=== PATIENT | male | born 1935 | race Caucasian/White ===

== ENCOUNTER → 2016-12-15 | Day surgery (SDC) | payer BC ==
[2016-12-02 09:21] VITALS: Ht 183.5 cm; Wt 113.6 kg
[~2016-12-15] VITALS: Ht 183.5 cm; Wt 113.6 kg
[~2016-12-15] MED LIST: AcetaZOLAMIDE 250 MG TAB PO SCH; BETAXOLOL HCL 0.25% OP SUSP PER DROP CHARGE OPR SCH; BIOFTAB30 PO; CYCLOPENTOLATE HCL 1% OP SOLN PER DROP CHARGE OPR SCH; HYDR25TA4 PO; LACTATED RINGER'S 1000ML 500 ML IV SCH; LIDOCAINE 4% OP SOLN DROP CHARGE OPR SCH; MOXIFLOXACIN OPH SOLN PER DROP CHARGE OPR SCH; MULTCAP33 PO; PANT1TAB48 PO; PHENYLEPHRINE HCL 2.5% OP SOLN PER DROP CHARGE OPR SCH; PROPARACAINE 0.5% OP SOLN PER DROP CHARGE OPR SCH; TROPICAMIDE 1% OP SOLN PER DROP CHARGE OPR SCH
== END | disposition home or self-care (01) ==
LOC: EDSTATUS 08:00 → C.PAT 13:25
PROVIDERS: ATTEND Specialist
DX: H26.9 Unspecified cataract (principal)

== ENCOUNTER → 2016-12-20 | Outpatient (CLI) | payer BC ==
[~2016-12-20] MED LIST changes: -AcetaZOLAMIDE 250 MG TAB PO SCH; -BETAXOLOL HCL 0.25% OP SUSP PER DROP CHARGE OPR SCH; -CYCLOPENTOLATE HCL 1% OP SOLN PER DROP CHARGE OPR SCH; -LACTATED RINGER'S 1000ML 500 ML IV SCH; -LIDOCAINE 4% OP SOLN DROP CHARGE OPR SCH; -MOXIFLOXACIN OPH SOLN PER DROP CHARGE OPR SCH; -PHENYLEPHRINE HCL 2.5% OP SOLN PER DROP CHARGE OPR SCH; -PROPARACAINE 0.5% OP SOLN PER DROP CHARGE OPR SCH; -TROPICAMIDE 1% OP SOLN PER DROP CHARGE OPR SCH
[2016-12-20 10:15] LABS: BASO % 0.7 %; BASO ABS # 0.04 K/uL (0-0.2); COMPLETE YES; EOS % 2.6 %; HEMATOCRIT 48.2 % (42-52); IG% 0.2 %; LYMPH % 43.3 %; MEAN CELL VOLUME 89.4 fL (80-100); MEAN CORPUSCULAR HEMOGLOBIN 30.8 pg (25-34); MEAN CORPUSCULAR HGB CONC 34.4 g/dl (32-36); MEAN PLATELET VOLUME 8.9 fL (7.4-10.4); MONO % 8.5 %; NEUT % 44.7 %; PLATELET COUNT 181 K/uL (130-400); RED BLOOD COUNT 5.39 M/uL (4.7-6.1); WHITE BLOOD COUNT 5.77 K/uL (4.8-10.8)
[2016-12-20 10:26] LABS: ESTIMATED AVERAGE GLUCOSE 120 mg/dl; HA1C FLAG Normal (Normal)
[2016-12-20 10:46] LABS: BLOOD UREA NITROGEN 22 mg/dl (7-18); BUN/CREATININE RATIO 18.3 (10-20); CARBON DIOXIDE 32 mmol/L (21-32); CHLORIDE 103 mmol/L (98-107); CHOLESTEROL 155 mg/dl (0-200); GLUCOSE 109 mg/dl (70-99); POTASSIUM 3.8 mmol/L (3.5-5.1); SODIUM 141 mmol/L (136-145); TRIGLYCERIDES 165 mg/dl (0-150); VERY LOW DENSITY LIPOPROT CALC 33 mg/dl
[2016-12-20 10:49] LABS: CALCIUM 8.9 mg/dl (8.5-10.1)
[2016-12-20 10:57] LABS: HDL CHOLESTEROL 39 mg/dl; LDL CHOLESTEROL CALCULATED 83 mg/dl; URIC ACID 6.4 mg/dl (2.6-7.2)
--- NOTE | 2016-12-24 11:42 | CODING QUERY MEDICAL NECESSITY ---
SUPPORTING DIAGNOSIS NEEDED A supporting diagnosis is required for the test/procedure performed on this patient in order for us to be reimbursed by the patient's insurance. Please provide a supporting diagnosis for the following test/procedure listed below next to the test name along with your signature. *If there is no additional diagnosis for this patient that would support the following test/procedure please document that below next to the test/procedure. Test(s)/Procedure(s) that require a supporting diagnosis: * HEMOGLOBIN A1C DIAGNOSIS: Provider Signature: Date: Thank you Rasheeda Oconnell [employer] Once completed, please kindly fax back to [phone] For questions please call [phone]
== END | disposition home or self-care (01) ==
LOC: C.LAB1850 08:58
PROVIDERS: ATTEND Internal Medicine
DX: K21.9 Gastro-esophageal reflux disease without esophagitis (principal); E74.39 Other disorders of intestinal carbohydrate absorption

== ENCOUNTER → 2017-05-13 | Outpatient (CLI) | payer BC ==
[~2017-05-13] VITALS: Ht 183.5 cm; Wt 139.0 kg
[2017-05-13 13:53] VITALS: BP 147/95; PULSE 86; Ht 183.5 cm; Wt 139.0 kg
== END | disposition home or self-care (01) ==
LOC: C.NEUR 12:58
PROVIDERS: ATTEND Internal Medicine Pulmonary Disease
DX: G47.33 Obstructive sleep apnea (adult) (pediatric) (principal); E66.9 Obesity, unspecified; I87.2 Venous insufficiency (chronic) (peripheral)

== ENCOUNTER → 2017-09-23 | Outpatient (CLI) | payer BC ==
[~2017-09-23] MED LIST changes: +PANT1TAB3 PO; -PANT1TAB48 PO
--- NOTE | 2017-09-23 08:58 | DIAGNOSTIC IMAGING REPORT ---
R KNEE 3 VIEWS HISTORY: 82 years-old Male B/L KNEE PAIN acute bilateral knee pain, most pronounced in the right COMPARISON: Radiographs 07/25/2013 TECHNIQUE: AP, sunrise, crosstable lateral and AP axial views of the bilateral knees FINDINGS: RIGHT: Tricompartmental osteoarthritis, severe within the medial compartment, moderate to severe within the patellofemoral compartment and moderate within the lateral compartment. No acute fracture or dislocation. No definite intra-articular loose body. Small joint effusion. Peripheral vascular disease. LEFT: Tricompartmental osteoarthritis appears moderate throughout. Small to moderate joint effusion. Peripheral vascular disease. No acute fracture or dislocation. No definite intra-articular loose body. IMPRESSION: 1. No acute fracture or dislocation. 2. Tricompartmental osteoarthritis is noted bilaterally, right greater than left. 3. Peripheral vascular disease. The above report was generated using voice recognition software. It may contain grammatical, syntax or spelling errors. Electronically signed by: Mohamud Akins M.D. 09/23/2017 8:56 AM Dictated Date/Time: 09/23/2017 8:53 AM
== END | disposition home or self-care (01) ==
LOC: C.RDSM 12:57
PROVIDERS: ATTEND Physician Assistant
DX: M17.0 Bilateral primary osteoarthritis of knee (principal); I73.9 Peripheral vascular disease, unspecified

== ENCOUNTER → 2017-11-15 | Outpatient (CLI) | payer BC ==
[~2017-11-15] VITALS: Ht 183.5 cm; Wt 142.7 kg
[2017-11-15 14:14] VITALS: BP 143/67; PULSE 82; Ht 183.5 cm; Wt 142.7 kg
== END | disposition home or self-care (01) ==
LOC: C.NEUR 12:53
PROVIDERS: ATTEND Internal Medicine Pulmonary Disease
DX: G47.33 Obstructive sleep apnea (adult) (pediatric) (principal); E66.9 Obesity, unspecified; I87.2 Venous insufficiency (chronic) (peripheral); I10 Essential (primary) hypertension; K21.9 Gastro-esophageal reflux disease without esophagitis

== ENCOUNTER → 2018-02-24 | Outpatient (CLI) | payer BC ==
[2018-02-24 11:39] LABS: HEMOGLOBIN A1C 5.9 % (4.5-5.6)
== END | disposition home or self-care (01) ==
LOC: C.LAB1850 09:49
PROVIDERS: ATTEND Internal Medicine
DX: R73.9 Hyperglycemia, unspecified (principal)

== ENCOUNTER 2021-10-27 09:58 | Observation (INO) ==
[2021-10-27] MEDS ORDERED: SODIUM CHLORIDE 0.9% 500 ML IV SCH (11:15)
--- NOTE | 2021-10-27 11:31 | Emergency Department Note ---
Impression & Plan Rectal mass, Liver masses, Alkaline phosphatase elevation, Weakness, Unintentional weight loss ED Provider Note Provider: Romero Campbell MD DATE OF SERVICE: 10/27/2021 CHIEF COMPLAINT: No appetite, weight loss, rectal pain HISTORY OF PRESENT ILLNESS: Patient is a 86-year-old gentleman history of hypertension, hyperglycemia, TANIA, and GERD presenting here today referred by his primary doctor's office. Evidently over the last several weeks his had no appetite and over the last several months has been losing weight. Reports a bit of rectal discomfort. Denies any significant rectal bleeding and denies any nausea or vomiting. States he just does not feel hungry. Is hydrating okay. Denies fever chills or chest pain or shortness of breath. Some generalized weakness reported. Stopped going to the gym was 2 weeks ago as well. Daughter is concerned about generalized decline. Was scheduled for outpatient colonoscopy but are planning to postpone this given his weakness and fatigue. Patient denies any significant difficulty speaking or focal numbness or weakness. Has been following with outpatient PCP and seen last week. Had some outpatient blood work. Patient states it hurts when he sits on his bottom but has had issues with some hemorrhoids in the past. REVIEW OF SYSTEMS: A total of 10 review of systems was obtained and negative except as stated above in the HPI. PAST MEDICAL HISTORY: As noted above MEDICATIONS: Home medications reviewed SOCIAL HISTORY: Lives at home with PHYSICAL EXAM: GENERAL: alert and oriented in no acute distress on stretcher Head: normocephalic and atraumatic EYES: No injection, discharge or icterus. NECK: Trachea midline ENT: Mucous membranes pink and moist. LUNGS: Airway patent. No retractions. Breath sounds clear with good air entry bilaterally. HEART: Regular rate and rhythm. No chest wall tenderness ABDOMEN: Soft and non-tender, without guarding or rebound. No pulsatile mass appreciated. Rectal: With nurse Trinidad at bedside no external hemorrhoids visualized. Some brownish stool in the rectal vault that is trace Hemoccult positive. SKIN: Acyanotic, warm, dry, without rashes EXTREMITIES: Without swelling, tenderness or deformity NEUROLOGICAL: No focal deficits. No aphasia. No facial droop or slurred speech. Ambulatory. EK bpm normal sinus rhythm with a complete right bundle branch block. No PVC or PAC noted. No acute ST segment elevation or depression with a QTC of 442 CONTINUOUS CARDIAC MONITORING: was ordered and showed a heart rate of 60s-80s bpm in normal sinus rhythm Patient's laboratory studies and imaging reviewed. Differential includes Infection, dehydration, metabolic abnormality, hypo/hyperglycemia, electrolyte disturbance, anemia, hypoxia, cardiac sources, intracerebral event, toxicologic, neurologic, as well as other pathologies. IMPRESSION/MEDICAL DECISION MAKING: Patient with generalized weakness lack of appetite and some rectal discomfort. No obvious evidence of hemorrhoid. No significant bleeding reported ultras Hemoccult positive on exam here today question if it is from the exam itself. Blood work here with minimal anemia no leukocytosis. Denies other URI symptoms and doubt this represents COVID. Borderline hyponatremia of 135. Alkaline phosphatase slightly high at 313 downtrending from last week in the 330s. EKG and troponin completed although low suspicion for cardiac etiology. Chest x-ray per radiology is reassuring. Outpatient PSA from last week normal. CT of the abdomen pelvis per radiology with concerning findings for rectal mass with po ssible liver metastasis. Discussed with patient and daughter at bedside concerned that this could represent an oncological process. Discussed the need for further testing to elucidate this. Discussed with him given the patient's fatigue and generalized weakness options of observation for further testing versus outpatient follow-up. In shared decision-making will contact the hospitalist for further observation here for expeditious testing follow-up of his new masses. This likely explains his unintentional weight loss and fatigue that is developed and again unfortunately does appear likely to be a cancer. DIAGNOSIS: Rectal mass, liver masses, elevated alkaline phosphatase, weight loss, rectal pain, weakness DISPOSITION: Hospitalist will evaluate Patient was agreeable with this plan. Past Med/Surg History Medical History Chronic gastroesophageal reflux disease Degenerative disc disease Periorbital hematoma of left eye age 11 with surgical removal. Severe obstructive sleep apnea CPAP Venous insufficiency bilateral ankle edema (reason for HCTZ) Surgical History History of cataract surgery left History of colonoscopy History of eye surgery S/P epidural steroid injection Family History Father Cancer Prostate cancer Mother Myocardial infarction Brother Prostate cancer Other Coronary heart disease No family history of adverse response to anesthesia Denies family history of Ovarian cancer Breast cancer Colorectal cancer Social History Smoking Status: Former smoker Tobacco Type: Cigarettes Second Hand Exposure: No; Hx Alcohol Use: No Hx Substance Use: No Preferred Language: Greenlandic Communication Ability: Effective Waste And Batting Waste Chopper Required: No Beliefs That Will Affect Care: None marital status: Current Living Situation: Spouse current occupational status: retired Feels Safe at Home: Yes Childhood Exposure to Second-Hand Smoke: Yes Dental Care, Regularly: Yes Physical Activity Frequency: Daily Seatbelt Use: always Sunscreen Use: Yes Assistive Devices: Glasses Allergies Allergies Allergy/AdvReac Type Severity Reaction Status Date / Time No Known Allergies Allergy Verified 10/27/21 11:59 Home Meds Home Medications Medication Instructions Recorded Confirmed glucosamine-chondroitin 250 mg-200 2 tab PO QAM tab 02/05/19 10/27/21 mg tablet vit C 250 mg-vit E 90 mg-zinc 40 2 cap PO QAM cap 02/05/19 10/27/21 mg-copper 1 [id number]-bprfzm-mrtepa capsule (PreserVision AREDS-2) melatonin 10 mg capsule 10 mg PO HS PRN 10/21/21 10/27/21 aspirin 81 mg tablet,delayed 81 mg PO Q2D 10/27/21 10/27/21 release cholecalciferol (vitamin D3) 25 25 mcg PO QAM 10/27/21 10/27/21 mcg (1,000 unit) tablet (Vitamin D3) cyanocobalamin (vitamin B-12) 250 250 mcg PO QAM 10/27/21 10/27/21 mcg tablet (Vitamin B-12) multivitamin 1 tab PO QAM 10/27/21 10/27/21 Previous Rx's Medication Instructions Recorded hydrochlorothiazide 25 mg tablet 25 mg PO QAM #90 tab 01/12/21 pantoprazole 40 mg tablet,delayed 40 mg PO QAM #90 tab 05/25/21 release sodium sul 1.479 gram-potas ch 24 tab PO .COMPLEX #24 tab 10/09/21 0.188 gram-magnes sul 0.225 gram tablet (Sutab) Results & Data (ED) Vital Signs Vital Signs - 24 hr 10/27/21 10:09 10/27/21 11:51 10/27/21 11:58 Temperature 36.4 C L Temperature Source Temporal Artery Scan Pulse Rate 88 Pulse Rate [Apical] 67 Respiratory Rate 16 18 Blood Pressure 107/72 Blood Pressure [Right Arm] 141/89 H Blood Pressure Mean 83 Blood Pressure Mean [Right Arm] 106 Blood Pressure Position [Right Arm] Semi-fowlers Pulse Oximetry 96 97 95 Oxygen Delivery Method Room Air Room Air Room Air Sepsis Recent Fever Within 48 Hours No Sepsis New/Unexplained Change in Mental Status No Sepsis Action Taken by Nursing No Action Required 10/27/21 13:00 Temperature 36.8 C Temperature Source Oral Pulse Rate Pulse Rate [Apical] 84 Respiratory Rate 18 Blood Pressure Blood Pressure [Right Arm] 123/77 Blood Pressure Mean Blood Pressure Mean [Right Arm] 92 Blood Pressure Position [Right Arm] Pulse Oximetry 97 Oxygen Delivery Method Sepsis Recent Fever Within 48 Hours Sepsis New/Unexplained Change in Mental Status Sepsis Action Taken by Nursing Laboratory Data Result diagrams: 10/27/21 10:35 10/27/21 10:35 Lab Results 10/27/21 10/27/21 10/27/21 Range/Units 10:35 10:35 10:35 WBC 8.03 (4.8-10.8) K/uL RBC 4.77 (4.7-6.1) M/uL Hgb 13.6 L (14.0-18.0) g/dL Hct 41.7 L (42-52) % MCV 87.4 (80-100) fL MCH 28.5 (25-34) pg MCHC 32.6 (32-36) g/dL RDW Std Deviation 47.2 H (36.4-46.3) fL RDW Coeff of Marisol 14.7 H (11.5-14.5) % Plt Count 297 (130-400) K/uL MPV 8.8 (7.4-10.4) fL Immature Gran % (Auto) 0.1 % Neut % (Auto) 58.3 % Lymph % (Auto) 27.0 % Gilchrist % (Auto) 10.7 % Eos % (Auto) 3.2 % Baso % (Auto) 0.7 % Neut # (Auto) 4.67 (1.4-6.5) K/uL Lymph # (Auto) 2.17 (1.2-3.4) K/uL Gilchrist # (Auto) 0.86 H (0.11-0.59) K/uL Eos # (Auto) 0.26 (0-0.5) K/uL Baso # (Auto) 0.06 (0-0.2) K/uL Immature Gran # (Auto) 0.01 (0.00-0.02) K/uL Sodium 135 L (136-145) mmol/L Potassium 3.9 (3.5-5.1) mmol/L Chloride 99 (98-107) mmol/L Carbon Dioxide 28 (21-32) mmol/L Anion Gap 8 (3-11) BUN 19 (6-23) mg/dl Creatinine 1.13 (0.6-1.4) mg/dl Est Cr Clr Drug Dosing 57.7 ml/min Est GFR ( Amer) 67.4 ml/min Est GFR (Non-Af Amer) 58.1 ml/min BUN/Creatinine Ratio 16.8 (10-20) Glucose 102 H (70-99(Fasting)) mg/dl Calcium 9.8 (8.5-10.1) mg/dl Magnesium 2.2 (1.7-2.4) mg/dl Total Bilirubin 1.1 H (0.2-1.0) mg/dl AST 34 (13-39) U/L ALT 16 (7-52) U/L Alkaline Phosphatase 313 H (34-104) U/L Troponin I High Sens 8.2 (0-20) pg/ml Total Protein 7.0 (6.0-8.3) gm/dl Albumin 3.9 (3.4-5.0) gm/dl Globulin 3.1 (2.5-4.0) gm/dl Albumin/Globulin Ratio 1.3 (0.9-2) TSH (0.300-4.500) uIu/ml Urine Color Urine Appearance (Clear) Urine pH (4.5-7.5) Ur Specific [place] (1.000-1.030) Urine Protein (Negative) Urine Glucose (UA) (Negative) Urine Ketones (Negative) Urine Blood (Negative) Urine Nitrite (Negative) Urine Bilirubin (Negative) Urine Urobilinogen (Negative) Ur Leukocyte Esterase (Negative) SARS-CoV-2, RNA, NAAT (NEGATIVE) 10/27/21 10/27/21 10/27/21 Range/Units 10:35 12:24 14:37 WBC (4.8-10.8) K/uL RBC (4.7-6.1) M/uL Hgb (14.0-18.0) g/dL Hct (42-52) % MCV (80-100) fL MCH (25-34) pg MCHC (32-36) g/dL RDW Std Deviation (36.4-46.3) fL RDW Coeff of Marisol (11.5-14.5) % Plt Count (130-400) K/uL MPV (7.4-10.4) fL Immature Gran % (Auto) % Neut % (Auto) % Lymph % (Auto) % Gilchrist % (Auto) % Eos % (Auto) % Baso % (Auto) % Neut # (Auto) (1.4-6.5) K/uL Lymph # (Auto) (1.2-3.4) K/uL Gilchrist # (Auto) (0.11-0.59) K/uL Eos # (Auto) (0-0.5) K/uL Baso # (Auto) (0-0.2) K/uL Immature Gran # (Auto) (0.00-0.02) K/uL Sodium (136-145) mmol/L Potassium (3.5-5.1) mmol/L Chloride (98-107) mmol/L Carbon Dioxide (21-32) mmol/L Anion Gap (3-11) BUN (6-23) mg/dl Creatinine (0.6-1.4) mg/dl Est Cr Clr Drug Dosing ml/min Est GFR ( Amer) ml/min Est GFR (Non-Af Amer) ml/min BUN/Creatinine Ratio (10-20) Glucose (70-99(Fasting)) mg/dl Calcium (8.5-10.1) mg/dl Magnesium (1.7-2.4) mg/dl Total Bilirubin (0.2-1.0) mg/dl AST (13-39) U/L ALT (7-52) U/L Alkaline Phosphatase (34-104) U/L Troponin I High Sens (0-20) pg/ml Total Protein (6.0-8.3) gm/dl Albumin (3.4-5.0) gm/dl Globulin (2.5-4.0) gm/dl Albumin/Globulin Ratio (0.9-2) TSH 1.466 (0.300-4.500) uIu/ml Urine Color Dark Yellow Urine Appearance Clear (Clear) Urine pH 5.0 (4.5-7.5) Ur Specific [place] 1.016 (1.000-1.030) Urine Protein Negative (Negative) Urine Glucose (UA) Negative (Negative) Urine Ketones 1+ H (Negative) Urine Blood Negative (Negative) Urine Nitrite Negative (Negative) Urine Bilirubin Negative (Negative) Urine Urobilinogen Negative (Negative) Ur Leukocyte Esterase Negative (Negative) SARS-CoV-2, RNA, NAAT NEGATIVE (NEGATIVE) Administered Medications Discontinued Medications Sodium Chloride (Nss) 500 mls @ 999 mls/hr IV .Q31M STACY Stop: 10/27/21 11:45 Last Infusion: 10/27/21 13:47 Dose: 0 mls/hr Documented by: [id number] Admin: 10/27/21 11:45 Dose: 999 mls/hr Documented by: [id number] Ioversol (Optiray 320 100ml) 95 ml IV ONCE ONE Stop: 10/27/21 12:54 Last Admin: 10/27/21 12:53 Dose: 95 ml Documented by: [id number] Imaging Data Radiologist's Impression: Abdomen/Pelvis CT 10/27/21 11:12 CT abd pelvis IV con only CLINICAL HISTORY: rectal pain, weight loss TECHNIQUE: Helical axial images of the abdomen and pelvis were obtained and displayed. Automated dose lowering techniques and/or adjustment according to patient size were utilized for this exam. This exam was performed with intravenous contrast. CT DOSE: 922.36 mGy.cm COMPARISON: None available at the time of this dictation. FINDINGS: Lower chest: Bibasilar atelectasis versus scarring is seen. Liver: Innumerable hypodense lesions are seen in the liver concerning for metastatic disease. Gallbladder and biliary tree: No calcified gallstones. Normal caliber wall. No intra- or extrahepatic biliary ductal dilation. Pancreas: Unremarkable, no focal lesions. Spleen: Unremarkable. Adrenals: Unremarkable. Kidneys and ureters: Unremarkable. Bladder: Bladder wall thickening is noted. Reproductive organs: Prostatomegaly is seen. Bowel: There is thickening of the rectal wall with numerous soft tissue nodules in the perirectal fat. These measure up to 34 x 24 mm. A hiatal hernia is seen. The appendix is surgically absent. Lymph nodes Retroperitoneal: No Mesenteric: Subcentimeter lymph nodes are noted. Pelvic: Apart from perirectal lymph nodes, there are regional nodes measuring 7 mm in the left external iliac station and 15 mm just distal to the aortic bifurcation. Peritoneum: Normal. Vessels: Atherosclerotic calcifications are seen. Abdominal wall: Unremarkable. Bones: Degenerative changes in the visualized spine. IMPRESSION: Rectal wall thickening compatible with rectal cancer. Lory metastases are seen in the perirectal fat and pelvic stations. Innumerable hepatic metastases are also seen. ACT 112: Negative or not required by law. Electronically signed by: Ajith Castro M.D. 10/27/2021 1:25 PM Chest X-Ray 10/27/21 11:12 XR chest 1V portable CLINICAL HISTORY: weakness COMPARISON STUDY: No previous studies for comparison. FINDINGS: Lung volumes are normal. No pneumothorax or pleural effusion is noted. No consolidation to suggest pneumonia and no evidence for pulmonary edema. Borderline cardiomegaly is noted. Several calcific densities project over the right upper to mid chest. These favor calcified nodules or calcified pleural plaques. IMPRESSION: No acute cardiopulmonary findings. ACT 112: Negative or not required by law. Electronically signed by: Nima Ernst M.D. 10/27/2021 11:45 AM Discharge Plan Visit Data Chief Complaint: Referred by Doctor Stated Complaint: DR REFERRED, HEMROID ISSUES ED Provider: Romero Campbell Discharge Problem: Rectal mass, Liver masses, Alkaline phosphatase elevation, Weakness, Unintentional weight loss Patient Disposition: Being Evaluated by Hospitalist Forms Stand Alone Forms: [facility] Prescriptions Prescriptions: No Action hydrochlorothiazide 25 mg tablet 25 mg PO QAM Qty: 90 RF: 3 pantoprazole 40 mg tablet,delayed release (DR/EC) 40 mg PO QAM Qty: 90 RF: 3 melatonin 10 mg capsule 10 mg PO HS PRN (Reason: Sleep) RF: 0 glucosamine-chondroitin 250-200 mg tablet 2 tab PO QAM RF: 0 PreserVision AREDS-2 [phone] ra-mpmk-dm-mg capsule 2 cap PO QAM RF: 0 Sutab 1.479-0.188- 0.225 gram tablet 24 tab PO .COMPLEX Qty: 24 RF: 0 multivitamin Tablet 1 tab PO QAM RF: 0 cyanocobalamin (vitamin B-12) [Vitamin B-12] 250 mcg Tablet 250 mcg PO QAM RF: 0 aspirin [Aspir-81] 81 mg Tablet,Delayed Release (Dr/Ec) 81 mg PO Q2D RF: 0 cholecalciferol (vitamin D3) [Vitamin D3] 25 mcg (1,000 unit) Tablet 25 mcg PO QAM RF: 0 Referrals Referrals: Luiz Kraft MD [Primary Care Provider] -
[2021-10-27 11:38] LABS: Basophils # (auto) 0.06 K/uL (0-0.2); Basophils % (auto) 0.7 %; Eosinophils # (auto) 0.26 K/uL (0-0.5); Eosinophils % (auto) 3.2 %; Hematocrit (blood only) 41.7 % (42-52); Hemoglobin 13.6 g/dL (14.0-18.0); Immature Granulocytes # (auto) 0.01 K/uL (0.00-0.02); Immature Granulocytes % (auto) 0.1 %; Lymphocytes # (auto) 2.17 K/uL (1.2-3.4); Mean Corpuscular Hemoglobin 28.5 pg (25-34); Mean Corpuscular Hgb Conc 32.6 g/dL (32-36); Mean Corpuscular Volume 87.4 fL (80-100); Mean Platelet Volume 8.8 fL (7.4-10.4); Monocytes # (auto) 0.86 K/uL (0.11-0.59); Monocytes % (auto) 10.7 %; Neutrophils # (auto) 4.67 K/uL (1.4-6.5); Neutrophils % (auto) 58.3 %; Platelet Count 297 K/uL (130-400); RDW Coefficient of Variation 14.7 % (11.5-14.5); RDW Standard Deviation 47.2 fL (36.4-46.3); Red Blood Count 4.77 M/uL (4.7-6.1); White Blood Count 8.03 K/uL (4.8-10.8)
--- NOTE | 2021-10-27 11:46 | XRay Report ---
XR chest 1V portable CLINICAL HISTORY: weakness COMPARISON STUDY: No previous studies for comparison. FINDINGS: Lung volumes are normal. No pneumothorax or pleural effusion is noted. No consolidation to suggest pneumonia and no evidence for pulmonary edema. Borderline cardiomegaly is noted. Several calc ific densities project over the right upper to mid chest. These favor calcified nodules or calcified pleural plaques. IMPRESSION: No acute cardiopulmonary findings. ACT 112: Negative or not required by law. Electronically signed by: Nima Ernst M.D. 10/27/2021 11:45 AM
[2021-10-27 11:53] LABS: Albumin Level 3.9 gm/dl (3.4-5.0); Bilirubin,Total 1.1 mg/dl (0.2-1.0); Calcium 9.8 mg/dl (8.5-10.1); Magnesium 2.2 mg/dl (1.7-2.4); Potassium 3.9 mmol/L (3.5-5.1)
[2021-10-27 11:59] LABS: Albumin Globulin Ratio 1.3 (0.9-2); BUN Creatinine Ratio 16.8 (10-20); Creatinine Clr Calc Pharmacy 57.7 ml/min; Est GFR (African American) 67.4 ml/min; Est GFR (Non-African American) 58.1 ml/min; Globulin 3.1 gm/dl (2.5-4.0)
[2021-10-27 12:35] LABS: Appearance Urine Clear (Clear); Bilirubin Urine Negative (Negative); Blood Urine Negative (Negative); Color Urine Dark Yellow; Glucose Urine UA Negative (Negative); Ketones Urine 1+ (Negative); Leukocyte Esterase Urine Negative (Negative); Nitrite Urine Negative (Negative); Protein Urine Negative (Negative); Specific Gravity Urine 1.016 (1.000-1.030); Urobilinogen Urine Negative (Negative)
[2021-10-27] MEDS ORDERED: OPTIRAY 320 100ml IV ONE (12:53)
--- NOTE | 2021-10-27 13:26 | CT Scan Report ---
CT abd pelvis IV con only CLINICAL HISTORY: rectal pain, weight loss TECHNIQUE: Helical axial images of the abdomen and pelvis were obtained and displayed. Automated dose lowering techniques and/or adjustment according to patient size were utilized for this exam. This e xam was performed with intravenous contrast. CT DOSE: 922.36 mGy.cm COMPARISON: None available at the time of this dictation. FINDINGS: Lower chest: Bibasilar atelectasis versus scarring is seen. Liver: Innumerable hypodense lesions are seen in the liver concerning for metastatic disease. Gallbladder and biliary tree: No calcified gallstones. Normal caliber wall. No intra- or extrahepatic biliary ductal dilation. Pancreas: Unremarkable, no focal lesions. Spleen: Unremarkable. Adrenals: Unremarkable. Kidneys and ureters: Unremarkable. Bladder: Bladder wall thickening is noted. Reproductive organs: Prostatomegaly is seen. Bowel: There is thickening of the rectal wall with numerous soft tissue nodules in the perirectal fat . These measure up to 34 x 24 mm. A hiatal hernia is seen. The appendix is surgically absent. Lymph nodes Retroperitoneal: No Mesenteric: Subcentimeter lymph nodes are noted. Pelvic: Apart from perirectal lymph nodes, there are regional nodes measuring 7 mm in the left client support analyst al iliac station and 15 mm just distal to the aortic bifurcation. Peritoneum: Normal. Vessels: Atherosclerotic calcifications are seen. Abdominal wall: Unremarkable. Bones: Degenerative changes in the visualized spine. IMPRESSION: Rectal wall thickening compatible with rectal cancer. Lory metastases are seen in the perirectal fat and pelvic stations. Innumerable hepatic metastases are also seen. ACT 112: Negative or not required by law. Electronically signed by: Ajith Castro M.D. 10/27/2021 1:25 PM
--- NOTE | 2021-10-27 14:31 | History & Physical Report ---
Date of Service October 27, 2021 Assessment & Plan (1) Rectal cancer: Plan: Presumed diagnosis given CT findings of rectal thickening and lymph node and liver involvement. - GI consulted - Hopefully can schedule flex sig in next 24 hours for biopsy. - Hold home ASA - I did discuss timeline with the patient and daughter. Could likely be discharged after biopsy with close oncology follow-up as outpatient once biopsy results have returned. (2) Anemia: Plan: Hgb down to 13.6. In 2020, had been normal. Possibly iron deficiency from his cancer. - Will get anemia labs with AM labs (3) Severe obstructive sleep apnea: Plan: Daughter will bring in home CPAP machine this evening. - Order entered to permit use. (4) Chronic gastroesophageal reflux disease: Plan: - Continue PPI (5) Venous insufficiency: Plan: Reason he takes HCTZ per patient. - Hold for 1 day in preparation for possible colonoscopy vs. flex sig (6) DVT prophylaxis: Plan: SCDs - Holding heparin for possible procedure FULL CODE - Discussed with patient and daughter present. Would not want prolonged intubation, but 1-2 days would be acceptable to him. History of Present Illness Primary Care Provider: Luiz Kraft MD 86yo M w/ hx of HTN who presents with likely metastatic rectal cancer. The patient has been working with his PCP for several months in relation to B symptoms of fatigue, weight loss, loss of appetite, and irregular bowel movements. The patient notes an intentional weight loss of ~30 lbs, but has continued to lose weight and has likely lost another 10 lbs or so. Over the last few months, he has also had a decline in energy and appetite. He also notes that he has had irregular bowel movements. Normally, the patient reports daily bowel movements. He denies noticing any blood or black-tarry stools at all. Despite low appetite, has not had any nausea or vomiting. He has been following with his PCP for this, and also saw Dr. Mckeon in clinic as well, but had not yet gotten an EGD or colonoscopy. Allergies Allergy/AdvReac Type Severity Reaction Status Date / Time No Known Allergies Allergy Verified 10/27/21 11:59 Home Medications Medication Instructions Recorded Confirmed Type glucosamine-chondroitin 250 mg-200 2 tab PO QAM tab 02/05/19 10/27/21 History mg tablet vit C 250 mg-vit E 90 mg-zinc 40 2 cap PO QAM cap 02/05/19 10/27/21 History mg-copper 1 [id number] capsule (PreserVision AREDS-2) hydrochlorothiazide 25 mg tablet 25 mg PO QAM #90 tab 01/12/21 10/27/21 Rx pantoprazole 40 mg tablet,delayed 40 mg PO QAM #90 tab 05/25/21 10/27/21 Rx release sodium sul 1.479 gram-potas ch 24 tab PO .COMPLEX #24 tab 10/09/21 10/27/21 Rx 0.188 gram-magnes sul 0.225 gram tablet (Sutab) melatonin 10 mg capsule 10 mg PO HS PRN 10/21/21 10/27/21 History aspirin 81 mg tablet,delayed 81 mg PO Q2D 10/27/21 10/27/21 History release cholecalciferol (vitamin D3) 25 25 mcg PO QAM 10/27/21 10/27/21 History mcg (1,000 unit) tablet (Vitamin D3) cyanocobalamin (vitamin B-12) 250 250 mcg PO QAM 10/27/21 10/27/21 History mcg tablet (Vitamin B-12) multivitamin 1 tab PO QAM 10/27/21 10/27/21 History Past Med/Surg History Medical History Chronic gastroesophageal reflux disease Degenerative disc disease Periorbital hematoma of left eye age 11 with surgical removal. Severe obstructive sleep apnea CPAP Venous insufficiency bilateral ankle edema (reason for HCTZ) Surgical History History of cataract surgery left History of colonoscopy History of eye surgery S/P epidural steroid injection Family History Father Cancer Prostate cancer Mother Myocardial infarction Brother Prostate cancer Other Coronary heart disease No family history of adverse response to anesthesia Denies family history of Ovarian cancer Breast cancer Colorectal cancer Social History Smoking Status: Former smoker Tobacco Type: Cigarettes Second Hand Exposure: No; Hx Alcohol Use: No Hx Substance Use: No Preferred Language: Syrian Communication Ability: Effective 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 Resources 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: No Beliefs That Will Affect Care: None marital status: Current Living Situation: Spouse current occupational status: retired Feels Safe at Home: Yes Childhood Exposure to Second-Hand Smoke: Yes Dental Care, Regularly: Yes Physical Activity Frequency: Daily Seatbelt Use: always Sunscreen Use: Yes Assistive Devices: Glasses Review of Systems Review of Systems: All systems reviewed & are unremarkable except as noted in HPI & below Physical Exam Constitutional: WD/WN, vitals as above Eyes: EOM intact bilaterally; no conjunctival abnormality ENMT: external ear and nose normal, oropharynx normal Neck: trachea midline, no thyromegaly normal visual inspection Respiratory: normal respiratory effort, lungs clear to auscultation no respiratory distress Cardiovascular: RRR, no murmur, no edema Gastrointestinal (Abdomen): Inspection/Auscultation: abdomen normal to inspection; abdomen not distended Percussion/Palpation: abdomen soft; abdomen nontender, no guarding and abdomen not rigid Musculoskeletal: no cyanosis or clubbing, extremities motor strength 5/5 Skin: no rashes, warm and dry Neurologic: moves all extremities and awake Psychiatric: Orientation: alert, oriented to person and cooperative Results & Data Results & Data ([facility]) Vital Signs (Past 12 Hours) Vital Signs Temp Pulse Pulse Resp BP BP Pulse Ox 10/27/21 11:58 67 18 141/89 H 95 10/27/21 11:51 97 10/27/21 10:09 36.4 C L 88 16 107/72 96 Code Status & VTE Plan VTE Prophylaxis Plan VTE Prophylaxis will be ordered: Yes PG Care Time/CCT Total # of Minutes Spent Total Time Spent with Patient: Total time spent is greater than 50% in coordination of care (as documented) at patient's floor/unit and/or counseling patient: Coding Level of Care Code INT OBSERVATION CARE 70M LVL 3 Diagnoses Rectal cancer C20 Severe obstructive sleep apnea G47.33 Chronic gastroesophageal reflux disease K21.9 Venous insufficiency I87.2 Anemia D64.9 DVT prophylaxis Z29.9
--- NOTE | 2021-10-27 15:35 | Electrocardiogram Report ---
Test Reason : Blood Pressure : / mmHG Vent. Rate : 072 BPM Atrial Rate : 072 BPM P-R Int : 208 ms QRS Dur : 118 ms QT Int : 404 ms P-R-T Axes : 074 005 018 degrees QTc Int : 442 ms Normal sinus rhythm Incomplete right bundle branch block Borderline ECG When compared with ECG of 18-MAY-2003 04:18, No significant change was found Confirmed by Luiz Moe ([id number]) on 10/27/2021 3:34:56 PM Referred By: Luiz Pro Confirmed By:Luiz Moe
[2021-10-27] MEDS ORDERED: ONDANSETRON INJ 2 MG/ML 2 ML VIAL IV PRN (20:00)
[2021-10-27] MEDS ORDERED: MELATONIN 3 MG TAB PO PRN (20:00)
[2021-10-27] MEDS ORDERED: SOD PHOSPHATE/SOD BIPHOSPHATE ENEMA 132 ML BTL PR STA (21:01)
[2021-10-28] MEDS ORDERED: KETOROLAC TROMETHAMINE 15 MG/ML VIAL IV STA (00:58)
[2021-10-28] MEDS ORDERED: ACETAMINOPHEN 500 MG TAB PO STA (01:02)
[2021-10-28] MEDS ORDERED: SOD PHOSPHATE/SOD BIPHOSPHATE ENEMA 132 ML BTL PR ONE (06:00)
[2021-10-28 07:25] LABS: Iron 37 mcg/dl (35-175); Total Iron Binding Cap Calc 321 mcg/dl (250-450); Transferrin (FE) Percent Satur 12 % (20-50); Unsaturated Iron Binding Cap 284 mcg/dl (155-355)
[2021-10-28 07:38] LABS: Ferritin 73.6 ng/ml (8-388)
[2021-10-28 07:40] LABS: BUN Creatinine Ratio 14.8 (10-20); Calcium 9.5 mg/dl (8.5-10.1); Creatinine Clr Calc Pharmacy 60.4 ml/min; Est GFR (African American) 71.1 ml/min; Est GFR (Non-African American) 61.4 ml/min; Magnesium 2.2 mg/dl (1.7-2.4)
[2021-10-28 07:44] LABS: Folate (Folic Acid) 19.54 ng/ml (>5.38)
[2021-10-28 08:10] LABS: Hematocrit (blood only) 38.8 % (42-52); Hemoglobin 12.9 g/dL (14.0-18.0); Mean Corpuscular Hemoglobin 28.3 pg (25-34); Mean Corpuscular Hgb Conc 33.2 g/dL (32-36); Mean Corpuscular Volume 85.1 fL (80-100); Mean Platelet Volume 8.7 fL (7.4-10.4); Platelet Count 251 K/uL (130-400); RDW Coefficient of Variation 14.5 % (11.5-14.5); RDW Standard Deviation 44.6 fL (36.4-46.3); Red Blood Count 4.56 M/uL (4.7-6.1); White Blood Count 7.18 K/uL (4.8-10.8)
[2021-10-28] MEDS: CYANOCOBALAMIN (B-12) 500 MCG TABLET PO SCH (08:32)
[2021-10-28] MEDS: PANTOprazole 40 MG TAB PO SCH (08:32)
--- NOTE | 2021-10-28 09:15 | Gastrointestinal Consultation ---
Date of Consultation October 28, 2021 Assessment & Plan (1) Change in bowel habits: (2) Abnormal CT scan, colon: -Keep NPO for flex sig today; per chart review it appears he was already ordered 2 fleet enemas -Further recommendations pending results of flex sig Supervising Physician Co-Signing Physician Notes I personally evaluated the patient and agree with the findings as documented by Imani Stevens, PAC Exam: Constitutional: WD/WN, vitals as above General: EOM intact bilaterally Neck: normal visual inspection Respiratory: normal respiratory effort, lungs clear to auscultation Cardiovascular: RRR, no murmur, no edema Gastrointestinal: abdomennormal to inspection, nondistended, soft, nontender, no hepatosplenomegaly Musculoskeletal: no cyanosis, head normal to inspection Skin: no rashes, warm and dry Neurologic: moves all extremities Psychiatric: A and O x3, euthymic affect Proceed with flex sig. risks/benefits and procedure discussed with patient, who agrees to proceed History of Present Illness Reason for Consultation: Abnormal CT rectum, concern for cancer Attending Physician: Raúl Aguirre History of Present Illness Patient is an 86 yo male who presents to the hospital with ongoing fatigue, weight loss, loss of appetite, and irregular bowel movements. He was recently seen in the office by Dr. Mckeon due to the change in bowel habits. He was scheduled for an EGD/Colonoscopy tomorrow. Upon arrival to the ED, he underwent a CT scan that indicated concerns for rectal wall thickening and suspected pj metastases of the liver. His current H/H is 12.9/38.8. 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 He denies bloody stools. He reports his father and brother had colon cancer. Last colonoscopy was in 2007 and indicated diverticula. Allergies Allergy/AdvReac Type Severity Reaction Status Date / Time No Known Allergies Allergy Verified 10/27/21 11:59 Home Medications Medication Instructions Recorded Confirmed Type glucosamine-chondroitin 250 mg-200 2 tab PO QAM tab 02/05/19 10/27/21 History mg tablet vit C 250 mg-vit E 90 mg-zinc 40 2 cap PO QAM cap 02/05/19 10/27/21 History mg-copper 1 rw-styxep-vioevh capsule (PreserVision AREDS-2) hydrochlorothiazide 25 mg tablet 25 mg PO QAM #90 tab 01/12/21 10/27/21 Rx pantoprazole 40 mg tablet,delayed 40 mg PO QAM #90 tab 05/25/21 10/27/21 Rx release sodium sul 1.479 gram-potas ch 24 tab PO .COMPLEX #24 tab 10/09/21 10/27/21 Rx 0.188 gram-magnes sul 0.225 gram tablet (Sutab) melatonin 10 mg capsule 10 mg PO HS PRN 10/21/21 10/27/21 History aspirin 81 mg tablet,delayed 81 mg PO Q2D 10/27/21 10/27/21 History release cholecalciferol (vitamin D3) 25 25 mcg PO QAM 10/27/21 10/27/21 History mcg (1,000 unit) tablet (Vitamin D3) cyanocobalamin (vitamin B-12) 250 250 mcg PO QAM 10/27/21 10/27/21 History mcg tablet (Vitamin B-12) multivitamin 1 tab PO QAM 10/27/21 10/27/21 History Patient History Medical History Chronic gastroesophageal reflux disease Degenerative disc disease Encounter for pre-operative examination Periorbital hematoma of left eye age 11 with surgical removal. Severe obstructive sleep apnea CPAP Venous insufficiency bilateral ankle edema (reason for HCTZ) Surgical History History of cataract surgery left History of colonoscopy History of eye surgery S/P epidural steroid injection Family History Father Cancer Prostate cancer Mother Myocardial infarction Brother Prostate cancer Other Coronary heart disease No family history of adverse response to anesthesia Denies family history of Ovarian cancer Breast cancer Colorectal cancer Social History Smoking Status: Former smoker Tobacco Type: Cigarettes Second Hand Exposure: No; Hx Alcohol Use: Yes Alcohol type: beer Alcohol Intake Frequency Comment: socially Hx Substance Use: No Preferred Language: Japanese Communication Ability: Effective Orthopedics Teacher Required: No Beliefs That Will Affect Care: None marital status: Current Living Situation: Spouse current occupational status: retired Feels Safe at Home: Yes Childhood Exposure to Second-Hand Smoke: Yes Dental Care, Regularly: Yes Physical Activity Frequency: Daily Seatbelt Use: always Sunscreen Use: Yes Assistive Devices: None Review of Systems Constitutional: no fever and no chills Respiratory: no cough and no dyspnea Cardiovascular: no chest pain Gastrointestinal: + change in bowel habits; no abdominal pain and no blood in stools Integumentary: no rash Psychiatric: no problem reported Physical Exam Constitutional: well developed Respiratory: normal respiratory effort Cardiovascular: Rate/Rhythm: regular rate Gastrointestinal (Abdomen): Inspection/Auscultation: abdomen normal to inspection Musculoskeletal: Head/Neck/Chest: normocephalic Skin: no rashes Psychiatric: Orientation: alert and oriented x 3 Results & Data ([facility]) Vital Signs (Past 12 Hours) Vital Signs Temp Pulse Resp BP Pulse Ox 10/28/21 07:50 36.6 C 68 16 119/81 97 PG Care Time/CCT Total # of Minutes Spent Total Time Spent with Patient: Total time spent is greater than 50% in coordination of care (as documented) at patient's floor/unit and/or counseling patient: Coding Level of Care Code 18946 Initial Inpt Care Lvl 3 Diagnoses Change in bowel habits R19.[address] scan, colon R93.3
--- NOTE | 2021-10-28 11:22 | Anesthesiology Consultation ---
Date of Service October 28, 2021 Assessment & Plan (1) Encounter for pre-operative examination: Chart Review Chart Review: Acceptable Risk for Surgery, Patient NOT seen in Pre Admission Testing and data entry email processor initiated Consults Requested none ASA ASA3 Proposed Anesthesia Anesthesia Type: MAC Risk / Benefits Reviewed With: PT / POA / Parent / Guardian, Accepts Plan and Informed Consent Obtained History Surgery Operation Date: 10/28/21 16:30 Proposed Procedures p Flexible Sigmoidoscopy Dr. Mckeon - Vikram Mckeon MD Height/Weight Height: 6 ft Weight: 105 kg Allergies Allergy/AdvReac Type Severity Reaction Status Date / Time No Known Allergies Allergy Verified 10/27/21 11:59 Medications Home Medications Medication Instructions Recorded Confirmed Last Taken glucosamine-chondroitin 250 mg-200 2 tab PO QAM tab 02/05/19 10/27/21 10/26/21 mg tablet vit C 250 mg-vit E 90 mg-zinc 40 2 cap PO QAM cap 02/05/19 10/27/21 10/26/21 mg-copper 1 om-nzcqjy-sllysm capsule (PreserVision AREDS-2) hydrochlorothiazide 25 mg tablet 25 mg PO QAM #90 tab 01/12/21 10/27/21 10/26/21 pantoprazole 40 mg tablet,delayed 40 mg PO QAM #90 tab 05/25/21 10/27/21 10/26/21 release sodium sul 1.479 gram-potas ch 24 tab PO .COMPLEX #24 tab 10/09/21 10/27/21 Unknown 0.188 gram-magnes sul 0.225 gram tablet (Sutab) melatonin 10 mg capsule 10 mg PO HS PRN 10/21/21 10/27/21 10/26/21 aspirin 81 mg tablet,delayed 81 mg PO Q2D 10/27/21 10/27/21 10/25/21 release cholecalciferol (vitamin D3) 25 25 mcg PO QAM 10/27/21 10/27/21 10/26/21 mcg (1,000 unit) tablet (Vitamin D3) cyanocobalamin (vitamin B-12) 250 250 mcg PO QAM 10/27/21 10/27/21 10/26/21 mcg tablet (Vitamin B-12) multivitamin 1 tab PO QAM 10/27/21 10/27/21 10/26/21 Active Medications Generic Name Dose Route Start Last Admin Trade Name Rosalie PRN Reason Stop Dose Admin Cyanocobalamin 250 mcg 10/28/21 09:00 10/28/21 08:32 Cyanocobalamin (B-12) 500 Mcg Tablet PO 11/27/21 08:59 250 mcg QAM STACY Administration Pantoprazole Sodium 40 mg 10/28/21 09:00 10/28/21 08:32 Pantoprazole 40 Mg Tab PO 11/27/21 08:59 40 mg QAM STACY Administration NPO Date Last Intake of Fluids: 10/28/21 Time Last Intake of Fluids: 10:30 Last Intake of Fluids Comment: Ice cubes Date Last Intake of Solids: 10/25/21 Past Medical History Medical History Chronic gastroesophageal reflux disease Degenerative disc disease Encounter for pre-operative examination Periorbital hematoma of left eye age 11 with surgical removal. Severe obstructive sleep apnea CPAP Venous insufficiency bilateral ankle edema (reason for HCTZ) Exercise / Class Metabolic Activity II 4-5 Yardwork/Stairs/Walk up hill Past Family History Family History Father Cancer Prostate cancer Mother Myocardial infarction Brother Prostate cancer Other Coronary heart disease No family history of adverse response to anesthesia Denies family history of Ovarian cancer Breast cancer Colorectal cancer Past Surgical History Surgical History History of cataract surgery left History of colonoscopy History of eye surgery S/P epidural steroid injection Past Anesthesia History No Hx of Anesthesia Complications and No Family Hx of Anesthesia Complications History of PONV No Hx of PONV and No Hx of Motion Sickness Social History Smoking Status: Former smoker tobacco type: cigarettes Do You Dip or Chew Tobacco: No Hx Alcohol Use: Yes Alcohol type: beer alcohol intake frequency: other Alcohol Intake Frequency Comment: 2 beers a week Hx Substance Use: No substance use type: does not use Physical Exam Vital Signs Last Vital Signs Temp 36.4 C L 10/28/21 11:29 Pulse 65 10/28/21 11:29 Resp 18 10/28/21 11:29 BP 151/94 H 10/28/21 11:29 Pulse Ox 100 10/28/21 11:29 ENMT Mouth: no chipped teeth and no loose teeth Thyromental Distance: > or= 3.5 Finger Breadths Mallampati Class: III Neck normal visual inspection and trachea midline; neck extension not limited Respiratory normal respiratory effort; no respiratory distress Auscultation: lungs clear to auscultation bilaterally; no crackles, no rhonchi and no wheezes Cardiovascular Rate/Rhythm: regular rate and regular rhythm Heart Sounds: no gallop, no murmur and no cardiac rub Neurologic moves all extremities and awake Psychiatric Orientation: alert Testing Laboratory Results 10/28/21 06:07 10/28/21 06:07 Urine Color Dark Yellow 10/27/21 12:24 Urine Appearance Clear (Clear) 10/27/21 12:24 Urine pH 5.0 (4.5-7.5) 10/27/21 12:24 Ur Specific [place] 1.016 (1.000-1.030) 10/27/21 12:24 Urine Protein Negative (Negative) 10/27/21 12:24 Urine Glucose (UA) Negative (Negative) 10/27/21 12:24 Urine Ketones 1+ (Negative) H 10/27/21 12:24 Urine Nitrite Negative (Negative) 10/27/21 12:24 Ur Leukocyte Esterase Negative (Negative) 10/27/21 12:24 Electrocardiogram Date: 10/27/21 Test Reason : Blood Pressure : / mmHG Vent. Rate : 072 BPM Atrial Rate : 072 BPM P-R Int : 208 ms QRS Dur : 118 ms QT Int : 404 ms P-R-T Axes : 074 005 018 degrees QTc Int : 442 ms Normal sinus rhythm Incomplete right bundle branch block Borderline ECG When compared with ECG of 18-MAY-2003 04:18, No significant change was found Confirmed by Luiz Moe ([id number]) on 10/27/2021 3:34:56 PM Chest X-Ray Date: 10/27/21 CLINICAL HISTORY: weakness COMPARISON STUDY: No previous studies for comparison. FINDINGS: Lung volumes are normal. No pneumothorax or pleural effusion is noted. No consolidation to suggest pneumonia and no evidence for pulmonary edema. Borderline cardiomegaly is noted. Several calcific densities project over the right upper to mid chest. These favor calcified nodules or calcified pleural plaques. IMPRESSION: No acute cardiopulmonary findings. Other Testing CT Abd/Pelvis: IMPRESSION: Rectal wall thickening compatible with rectal cancer. Lory metastases are seen in the perirectal fat and pelvic stations. Innumerable hepatic metastases are also seen.
--- NOTE | 2021-10-28 11:47 | Hospitalist Progress Note ---
Date of Service October 28, 2021 Assessment & Plan (1) Rectal cancer: Plan: Presumed diagnosis given CT findings of rectal thickening and lymph node and liver involvement - GI consulted - Hfor flex sig later today - Hold home ASA - Lengthy discussion with patient regarding potential need for general surgery and oncology involvement. These can potentially be done as an outpatient - Discussed potential discharge later today with outpatient arrangements but he would much prefer to stay in the hospital overnight. Will await results of flex sig and potentially discharge tomorrow versus need for consultants while in house (2) Anemia: Plan: Hgb down to 13.6. In 2020, had been normal. Possibly iron deficiency from his cancer. - Likely related to potential rectal cancer and home aspirin use - Aspirin currently on hold - Iron level drawn with this morning's labs. Low level of normal at 37. We will hold off on supplementation given potential cancer and rectal mass. Iron may cause constipation and uncertain how large/obstructing this mass may be (3) Severe obstructive sleep apnea: Plan: Daughter will bring in home CPAP machine this evening. - Order entered to permit use. (4) Chronic gastroesophageal reflux disease: Plan: - Continue PPI (5) Venous insufficiency: Plan: Reason he takes HCTZ per patient- continue (6) DVT prophylaxis: Plan: SCDs - Holding heparin for possible procedure Plan: FULL CODE - on admission--Discussed with patient and daughter present. Would not want prolonged intubation, but 1-2 days would be acceptable to him. Patient is medically and hemodynamically stable for discharge following flexible sigmoidoscopy but patient requesting he be kept until tomorrow as procedure not until later this afternoon/early evening Admission and Anticipated Discharge Date Admission Date: October 27, 2021 Subjective Patient seen on daily rounds today. Hospitalized with generalized weakness/fatigue and need for expedited colonoscopy. Patient is a healthy 86-year-old who has been very active (was going to the gym up until 2 weeks ago). Since that time, patient has had progressive fatigue, decreased appetite, irregular bowel movements (more frequent3-4 times a day). He was seen by his PCP who recommended an outpatient colonoscopy. Was seen by GI on 10/09 with plan for outpatient procedure but in the interim, he became so weak that he was prompted to come to the emergency department by his PCP. He does report a 35 pound weight loss over the past year. CT scan of the abdomen and pelvis shows rectal wall thickness concerning for rectal CA with pj mets and hepatic mets. Has since been seen by GI and plan is for flexible sigmoidoscopy later today Discussed with patient potential discharge following procedure today. He is feeling weak and would much prefer to go tomorrow. Review of Systems Review of Systems: All systems reviewed and are unremarkable except as noted in HPI and below Denies fevers, chills, headache, nasal congestion, sore throat, cough, chest pain, shortness of breath, palpitations, orthopnea, PND, abdominal pain, nausea, vomiting, diarrhea, constipation, dysuria, hematuria, frequency, back pain, joint pain or swelling, easy bruising or bleeding, skin lesions or rashes. Physical Exam Physical Exam: General: Resting comfortably in his hospital bed. He appears much younger than stated age. NAD. HEENT: Head is AT/NC. Buccal mucosa is moist and pink Neck: No JVD. Negative hepatojugular reflex Cardiac: RRR with 1/6 LOIDA Lungs: CTA without W/R/R Abdomen: Normoactive X4. Soft and nontender in all quadrants. Extremities: No peripheral clubbing cyanosis or edema Neuro: A&O X4. Cranial nerves II through XII are grossly intact. No focal neuro deficits Skin: No obvious skin lesions or rashes Psych: Appropriate affect. Pleasant and cooperative Results & Data Results & Data ([facility]) Vital Signs (Past 12 Hours) Vital Signs Temp Pulse Resp BP Pulse Ox 10/28/21 11:29 36.4 C L 65 18 151/94 H 100 10/28/21 07:50 36.6 C 68 16 119/81 97 PG Care Time/CCT Total # of Minutes Spent Total Time Spent with Patient: Total time spent is greater than 50% in coordination of care (as documented) at patient's floor/unit and/or counseling patient: Coding Level of Care Code 38918 Subseq Hosp Care Lvl 2 Diagnoses Rectal cancer C20 Anemia D64.9 Severe obstructive sleep apnea G47.33 Chronic gastroesophageal reflux disease K21.9 Venous insufficiency I87.2 DVT prophylaxis Z29.9
--- NOTE | 2021-10-28 12:28 | GI REPORT ---
Patient Name: Saleem Birmingham Procedure Date: 10/28/2021 11:41 AM Date of : 1935 Admit Type: Inpatient Age: 86 Gender: Male Attending MD: Vikram Mckeon MD Procedure: Flexible Sigmoidoscopy Providers: Vikram Mckeon MD Referring MD: Luiz Kraft, Raúl Aguirre M.d. Indications: Abnormal CT of the GI tract Medicines: Monitored Anesthesia Care Complications: No immediate complications. Estimated blood loss: None. Estimated Blood Loss: Estimated blood loss: none. Procedure: Pre-Anesthesia Assessment: - Prior Anticoagulants: The patient has taken no previous anticoagulant or antiplatelet agents. - ASA Grade Assessment: II - A patient with mild systemic disease. After obtaining informed consent, the endoscope was passed under direct vision. Throughout the procedure, the patient's blood pressure, pulse, and oxygen saturations were monitored continuously. The Endoscope was introduced through the anus and advanced to the descending colon. The flexible sigmoidoscopy was accomplished without difficulty. The patient tolerated the procedure well. The quality of the bowel preparation was fair. Findings: Multiple medium-mouthed diverticula were found in the sigmoid colon. A fungating, infiltrative and ulcerated partially obstructing large mass was found in the rectum near the anus starting at/just proximal to the anal verge. The mass was partially circumferential. This was biopsied with a cold forceps for histology. Estimated blood loss: none. Impression: - Preparation of the colon was fair. - Diverticulosis in the sigmoid colon. - Malignant partially obstructing tumor in the rectum. Biopsied. Recommendation: - [facility] - Await pathology results. - Advance diet as tolerated today. -consider surgical and oncologic evaluations Vikram Mckeon MD 10/28/2021 12:27:40 PM This report has been signed electronically. Note Initiated On: 10/28/2021 11:41 AM Number of Addenda: 0 I attest to the content of the Intraoperative Record and orders documented therein, exceptions below {[id number]}
[2021-10-28] MEDS ORDERED: PROPOFOL IV EMULSION 10 MG/ML 20 ML VIAL IV ONE (12:30)
[2021-10-28] MEDS ORDERED: LIDOCAINE 2% 2 ML VIAL/AMP(20MG/ML) INFIL ONE (12:30)
--- NOTE | 2021-10-28 14:30 | Anesthesiology Progress Note ---
Date of Service October 28, 2021 Anesthesia Post Procedure Vital Signs Vital Signs: Temp Pulse Pulse Resp BP Pulse Ox 10/28/21 14:25 36.6 C 76 16 116/65 98 10/28/21 13:30 36.7 C 66 18 143/84 H 96 10/28/21 13:05 36.4 C L 65 15 134/70 95 10/28/21 12:40 70 16 106/70 94 10/28/21 12:25 66 16 109/63 95 10/28/21 11:29 36.4 C L 65 18 151/94 H 100 10/28/21 07:50 36.6 C 68 16 119/81 97 10/27/21 19:20 69 18 141/84 H 94 10/27/21 19:10 36.6 C 73 20 134/85 98 10/27/21 17:00 36.8 C 77 18 124/75 96 10/27/21 15:00 36.8 C 74 18 128/74 96 Pain Intensity Rectal: Pain Intensity: 5 Transfer of Care Handoff Completed per policy Notes Mental Status: alert / awake / arousable and participated in evaluation Patient Amnestic to Procedure: Yes Nausea / Vomiting: adequately controlled Pain: adequately controlled Airway Patency, RR, SpO2: stable & adequate BP & HR: stable & adequate Hydration State: stable & adequate Anesthetic Complications: no major complications apparent and Pt Satisfied with anesthetic care
[2021-10-29] MEDS: ACETAMINOPHEN 325 MG TAB PO PRN ×2 (03:04→11:09)
[2021-10-29 06:59] LABS: Hematocrit (blood only) 38.2 % (42-52); Hemoglobin 12.8 g/dL (14.0-18.0); Mean Corpuscular Hemoglobin 28.5 pg (25-34); Mean Corpuscular Hgb Conc 33.5 g/dL (32-36); Mean Corpuscular Volume 85.1 fL (80-100); Mean Platelet Volume 8.7 fL (7.4-10.4); Platelet Count 237 K/uL (130-400); RDW Coefficient of Variation 14.7 % (11.5-14.5); RDW Standard Deviation 45.1 fL (36.4-46.3); Red Blood Count 4.49 M/uL (4.7-6.1); White Blood Count 6.75 K/uL (4.8-10.8)
[2021-10-29 07:23] LABS: Calcium 9.1 mg/dl (8.5-10.1); Creatinine Clr Calc Pharmacy 69.4 ml/min; Est GFR (African American) 84.2 ml/min; Est GFR (Non-African American) 72.6 ml/min; Magnesium 2.2 mg/dl (1.7-2.4); Potassium 3.5 mmol/L (3.5-5.1)
[2021-10-29] MEDS: PANTOprazole 40 MG TAB PO SCH (08:03)
[2021-10-29] MEDS: CYANOCOBALAMIN (B-12) 500 MCG TABLET PO SCH (08:03)
[2021-10-29] MEDS ORDERED: hydroCHLOROthiazide 25 MG TAB PO SCH (09:00)
--- NOTE | 2021-10-29 15:34 | Discharge Summary ---
Date of Service October 29, 2021 Admission HPI Per Admitting Provider 86yo M w/ hx of HTN who presents with likely metastatic rectal cancer. The patient has been working with his PCP for several months in relation to B symptoms of fatigue, weight loss, loss of appetite, and irregular bowel movements. The patient notes an intentional weight loss of ~30 lbs, but has continued to lose weight and has likely lost another 10 lbs or so. Over the last few months, he has also had a decline in energy and appetite. He also notes that he has had irregular bowel movements. Normally, the patient reports daily bowel movements. He denies noticing any blood or black-tarry stools at all. Despite lo w appetite, has not had any nausea or vomiting. He has been following with his PCP for this, and also saw Dr. Mckeon in clinic as well, but had not yet gotten an EGD or colonoscopy. Principal Diagnosis Rectal mass -- likely represents colorectal cancer, biopsies pending Discharge Exam GENERAL: 86 yo well-developed, well-nourished WM. NAD. LUNGS: Clear to auscultation bilaterally. No W/R/R. CARDIOVASCULAR: Regular rate and rhythm. ABDOMEN: Soft, non-tender and non-distended. BS normal x 4 quad. EXTREMITIES: No edema. Non-tender. Peripheral pulses +2/4. NEUROLOGIC: A&O x3. PSYCHIATRIC: Cooperative. Appropriate mood and affect. SKIN: Warm, dry, intact. No rashes or lesions. Discharge Data Allergies Allergy/AdvReac Type Severity Reaction Status Date / Time No Known Allergies Allergy Verified 10/27/21 11:59 Consultations 10/27/21 14:08 ED Decision to Admit Stat 10/27/21 14:26 Consult Gastroenterology Routine 10/28/21 15:54 Consult [facility] budget specialist Routine Procedures Performed Operation Date: 10/28/21 16:30 Actual Procedures p Colonoscopy Biopsy Cytology - Vikram Mckeon MD Ordered Studies Abdomen/Pelvis CT 10/27/21 11:12 CT abd pelvis IV con only CLINICAL HISTORY: rectal pain, weight loss TECHNIQUE: Helical axial images of the abdomen and pelvis were obtained and displayed. Automated dose lowering techniques and/or adjustment according to patient size were utilized for this exam. This exam was performed with intravenous contrast. CT DOSE: 922.36 mGy.cm COMPARISON: None available at the time of this dictation. FINDINGS: Lower chest: Bibasilar atelectasis versus scarring is seen. Liver: Innumerable hypodense lesions are seen in the liver concerning for metastatic disease. Gallbladder and biliary tree: No calcified gallstones. Normal caliber wall. No intra- or extrahepatic biliary ductal dilation. Pancreas: Unremarkable, no focal lesions. Spleen: Unremarkable. Adrenals: Unremarkable. Kidneys and ureters: Unremarkable. Bladder: Bladder wall thickening is noted. Reproductive organs: Prostatomegaly is seen. Bowel: There is thickening of the rectal wall with numerous soft tissue nodules in the perirectal fat. These measure up to 34 x 24 mm. A hiatal hernia is seen. The appendix is surgically absent. Lymph nodes Retroperitoneal: No Mesenteric: Subcentimeter lymph nodes are noted. Pelvic: Apart from perirectal lymph nodes, there are regional nodes measuring 7 mm in the left external iliac station and 15 mm just distal to the aortic bifurcation. Peritoneum: Normal. Vessels: Atherosclerotic calcifications are seen. Abdominal wall: Unremarkable. Bones: Degenerative changes in the visualized spine. IMPRESSION: Rectal wall thickening compatible with rectal cancer. Lory metastases are seen in the perirectal fat and pelvic stations. Innumerable hepatic metastases are also seen. ACT 112: Negative or not required by law. Electronically signed by: Ajith Castro M.D. 10/27/2021 1:25 PM Chest X-Ray 10/27/21 11:12 XR chest 1V portable CLINICAL HISTORY: weakness COMPARISON STUDY: No previous studies for comparison. FINDINGS: Lung volumes are normal. No pneumothorax or pleural effusion is noted. No consolidation to suggest pneumonia and no evidence for pulmonary edema. Borderline cardiomegaly is noted. Several calcific densities project over the right upper to mid chest. These favor calcified nodules or calcified pleural plaques. IMPRESSION: No acute cardiopulmonary findings. ACT 112: Negative or not required by law. Electronically signed by: Nima Ernst M.D. 10/27/2021 11:45 AM Hospital Course (1) Rectal cancer: Presumed diagnosis given CT findings of rectal thickening and lymph node and liver involvement - GI consulted and underwent flex sigmoidoscopy on 10/28 - Home ASA held - Lengthy discussion with patient regarding potential need for general surgery and oncology involvement. These can potentially be done as an outpatient - Pathology is currently pending - Pt is passing flatus and had a BM following procedure - At this time, he has arrangements to f/u with oncology and general surgery as outpatient, no need for ongoing hospitalization (2) Anemia: Hgb down to 13.6. In 2020, had been normal. Possibly iron deficiency from his cancer. - Likely related to potential rectal cancer and home aspirin use - Aspirin currently on hold - Iron level drawn with this morning's labs. Low level of normal at 37. We will hold off on supplementation given potential cancer and rectal mass. Iron can cause constipation, mass partially obstructing and will want to avoid c ausing an obstruction at this point (3) Severe obstructive sleep apnea: Daughter will bring in home CPAP machine this evening. - Order entered to permit use. (4) Chronic gastroesophageal reflux disease: - Continue PPI (5) Venous insufficiency: - Reason he takes HCTZ per patient- continue Patient is medically and hemodynamically stable for discharge. Will ultimately stop his Aspirin upon d/c as he has no prior h/o stroke/MA and he is 86. He has arrangements in place to f/u with oncology and general surgery. Would also advise f/u with pcp within 1 week of discharge. Above plan of care has been d/w Dr. Trivedi who has also seen and evaluated this patient prior to d/c and is in agreement with the aforementioned. Total Time Total Time Spent Total Time Spent (In Minutes): <30 minutes Discharge Plan Discharge Items Patient Disposition: Home - Self-Care Reason For Visit: LIKELY RECTAL CANCER Discharge Diagnosis: Rectal mass Activity: Resume your previous activity Non-emergency contact: Primary Care Provider, Surgeon and Oncologist Call non-emergency contact if: you have any medication questions and your symptoms worsen Follow-up/Referrals: Luiz Kraft MD [Primary Care Provider] - Hugo Martinez DO [Surgeon] - 11/04/21 10:15 am ([facility]) Diet: Low Fiber Addtl Attending Provider Instructions: You were hospitalized due to an abnormal CT that detected a mass in your rectum. You underwent a flexible sigmoidoscopy which found a rectal mass that is partially obstructing. Biopsies of this mass were taken. This likely represents colorectal cancer but the final diagnosis is pending. It is recommended that you follow up with Dr. Montero (oncology) as well as Dr. Francis (surgeon) who will manage your care upon discharge. They will determine the next steps that need to be taken including any surgery, chemo or radiation. In the meantime, we would advise you follow a low fiber diet. If you stop being able to pass gas or stool, you need to contact your PCP immediately or go directly to the emergency room. We recommend follow up with your primary care provider within 1 week of discharge. Please contact the nonemergency number with any questions/concerns. If you have a medical emergency, call 911. Addtl Features Editor Provider Instructions: An oncology referral has been placed to the [facility] on your behalf. This office will reach out to you directly to schedule an appointment. If you do not hear from them within a few days of your hospital discharge, please call them at #[phone] to follow up. Pending Studies at Discharge: Yes Studies:: pathology of rectal mass Stand-Alone Forms: My [facility] [address], Smoking Cessation Medications and DC Order Prescriptions: Continued hydrochlorothiazide 25 mg tablet 25 mg PO QAM Qty: 90 RF: 3 pantoprazole 40 mg tablet,delayed release (DR/EC) 40 mg PO QAM Qty: 90 RF: 3 melatonin 10 mg capsule 10 mg PO HS PRN (Reason: Sleep) RF: 0 glucosamine-chondroitin 250-200 mg tablet 2 tab PO QAM RF: 0 PreserVision AREDS-2 299-269-79-1 wr-xoew-if-mg capsule 2 cap PO QAM RF: 0 multivitamin Tablet 1 tab PO QAM RF: 0 cyanocobalamin (vitamin B-12) [Vitamin B-12] 250 mcg Tablet 250 mcg PO QAM RF: 0 cholecalciferol (vitamin D3) [Vitamin D3] 25 mcg (1,000 unit) Tablet 25 mcg PO QAM RF: 0 Discontinued Sutab 1.479-0.188- 0.225 gram tablet 24 tab PO .COMPLEX Qty: 24 RF: 0 aspirin [Aspir-81] 81 mg Tablet,Delayed Release (Dr/Ec) 81 mg PO Q2D RF: 0 Discharge Orders: Discharge Order (Routine); Ordered 10/29/21 Ordered By: Flori Vega Admission Data Admit Date/Time: 10/27/21 14:26 Attending Provider: Matt Trivedi Admit Provider: Zachariah Herman Primary Care Provider: Luiz Kraft Other Providers: Vikram Mckeon ; Zachairah Herman Other Interventions: Discharge Summary Assessment (RN) Last Done: 10/28/21 12:59 Coding Level of Care Code 89581 OBS Care - Discharge Diagnoses Rectal cancer C20 Anemia D64.9 Severe obstructive sleep apnea G47.33 Chronic gastroesophageal reflux disease K21.9 Venous insufficiency I87.2
== END 2021-10-29 16:15 | disposition home or self-care (01) ==
LOC: ED 09:58 → 3E 09:58 → SUATTDRO 14:26 → 3E 19:32

== ENCOUNTER 2022-06-24 22:41 | Inpatient (IN) ==
[2022-06-24 23:07] LABS: Basophils # (auto) 0.04 K/uL (0-0.2); Basophils % (auto) 0.8 %; Eosinophils # (auto) 0.03 K/uL (0-0.50); Eosinophils % (auto) 0.6 %; Hematocrit (blood only) 35.7 % (40.1-51.0); Hemoglobin 12.2 g/dl (14.0-18.0); Immature Granulocytes # (auto) 0.02 K/uL (0.00-0.02); Immature Granulocytes % (auto) 0.4 %; Lymphocytes # (auto) 0.65 K/uL (1.2-3.4); Lymphocytes % (auto) 12.3 %; Mean Corpuscular Hemoglobin 31.3 pg (25.0-34.0); Mean Corpuscular Hgb Conc 34.2 g/dL (32.0-36.0); Mean Corpuscular Volume 91.5 fL (80.0-100.0); Mean Platelet Volume 9.2 fL (9.4-12.4); Monocytes # (auto) 0.68 K/uL (0.24-0.82); Monocytes % (auto) 12.9 %; Neutrophils # (auto) 3.85 K/uL (1.4-6.5); Platelet Count 150 K/uL (130-400); RDW Coefficient of Variation 15.9 % (11.5-14.5); White Blood Count 5.27 K/ul (4.8-10.8)
--- NOTE | 2022-06-24 23:21 | Emergency Department Note ---
History of Present Illness General Chief complaint: Fall Time Seen by Provider: 06/24/22 22:50 History of Present Illness Maximum Pain Intensity: 5 This 86-year-old presents to the ER complaining of fall in the bathroom Location: Head Quality: Lightheaded Severity: Moderate Duration: Today Timing: Today Context: Patient got up from the toilet got lightheaded and collapsed Modifying factors: better with rest; worse with activity Patient complains of a laceration to his ear/right side of face area, skin tear to the hand, mild headache and neck discomfort. Patient denies chest pain, abdominal pain, back pain, loss of conscious, numbness, tingling, localized weakness. Home Medications Medication Instructions Recorded Confirmed Type lactobacillus combination no.9 4 4,000 mmu cells PO DAILY 12/16/21 06/24/22 History billion cell capsule (Adult 50 Plus Probiotic) docusate sodium 100 mg capsule 100 mg PO Q OTHER DAY PRN 06/14/22 06/24/22 History (Stool Softener) Constipation oxycodone 5 mg capsule 5 mg PO .COMPLEX PRN Pain 06/14/22 06/24/22 History cholecalciferol (vitamin D3) 25 25 mcg PO QAM 06/21/22 06/24/22 History mcg (1,000 unit) tablet (Vitamin D3) mecobalamin (vitamin B12) 1,000 1,000 mcg PO DAILY #30 tabs 06/21/22 06/24/22 Rx mcg chewable tablet melatonin 10 mg capsule 10 mg PO HS sleep #30 caps 06/21/22 06/24/22 Rx multivitamin 1 tab PO DAILY #30 tabs 06/21/22 06/24/22 Rx oxycodone 5 mg tablet 5 mg PO BID pain #60 tabs 06/21/22 06/24/22 Rx pantoprazole 40 mg tablet,delayed 40 mg PO QAM #90 tabs 06/21/22 06/24/22 Rx release prochlorperazine maleate 10 mg 10 mg PO Q6H PRN nausea and 06/21/22 06/24/22 Rx tablet vomiting #30 tabs acetaminophen 500 mg capsule 1,000 mg PO Q6H PRN fever. pain 06/24/22 06/24/22 History Allergies Allergy/AdvReac Type Severity Reaction Status Date / Time No Known Allergies Allergy Verified 06/21/22 09:49 Past Med/Surg History Medical History Chronic gastroesophageal reflux disease Degenerative disc disease Encounter for pre-operative examination Encounter for pre-operative examination Obesity Periorbital hematoma of left eye age 11 with surgical removal. Severe obstructive sleep apnea CPAP Venous insufficiency bilateral ankle edema (reason for HCTZ) Surgical History History of cataract surgery left History of colonoscopy History of eye surgery S/P epidural steroid injection Family History Father Cancer Prostate cancer Mother Myocardial infarction Brother Prostate cancer Other Coronary heart disease No family history of adverse response to anesthesia Denies family history of Ovarian cancer Breast cancer Colorectal cancer Social History Smoking Status: Former smoker Tobacco Type: Cigarettes Second Hand Exposure: No; Hx Alcohol Use: Yes Alcohol type: beer Alcohol Intake Frequency Comment: socially Hx Substance Use: No Preferred Language: Cuban Communication Ability: Effective Evaporative Cooler Installer Required: No Beliefs That Will Affect Care: None marital status: Current Living Situation: Alone 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[employer]; 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 Feels Safe at Home: Yes Childhood Exposure to Second-Hand Smoke: Yes during the past year weight has: decreased > 10 lbs Dental Care, Regularly: Yes Physical Activity Frequency: Daily Seatbelt Use: always Sunscreen Use: Yes Assistive Devices: None Review of Systems A total of 10 systems reviewed and were otherwise negative Physical Exam Vital Signs Vital Signs - 24 hr 06/24/22 22:33 06/24/22 22:55 06/25/22 00:30 Temperature 36.7 C Temperature Source Oral Pulse Rate 101 H Pulse Rate [Apical] 82 Pulse Rhythm Regular Pulse Rhythm [Apical] Regular Pulse Strength Normal Pulse Strength [Apical] Normal Respiratory Rate 18 18 Respiratory Effort / Characteristics Non-Labored Non-Labored Respiratory Depth Normal Normal Respiratory Pattern Regular Regular Blood Pressure 162/94 H Blood Pressure [Right Arm] 138/86 Blood Pressure Mean 116 Blood Pressure Mean [Right Arm] 103 Blood Pressure Position Lying Blood Pressure Position [Right Arm] Lying Pulse Oximetry 97 95 Oxygen Delivery Method Room Air Room Air Room Air Sepsis Recent Fever Within 48 Hours No Sepsis New/Unexplained Change in Mental Status No Sepsis Action Taken by Nursing No Action Required 06/25/22 02:00 Temperature Temperature Source Pulse Rate Pulse Rate [Apical] 103 H Pulse Rhythm Pulse Rhythm [Apical] Regular Pulse Strength Pulse Strength [Apical] Normal Respiratory Rate 18 Respiratory Effort / Characteristics Non-Labored Respiratory Depth Normal Respiratory Pattern Regular Blood Pressure Blood Pressure [Right Arm] 138/90 Blood Pressure Mean Blood Pressure Mean [Right Arm] 106 Blood Pressure Position Blood Pressure Position [Right Arm] Lying Pulse Oximetry 95 Oxygen Delivery Method Room Air Sepsis Recent Fever Within 48 Hours Sepsis New/Unexplained Change in Mental Status Sepsis Action Taken by Nursing VITALS: Vitals are noted on the nurse's note and reviewed by myself. Vital signs stable. GENERAL: Pleasant patient, in no acute distress, nondiaphoretic, well-developed well-nourished. SKIN: Skin tear to right hand, laceration to right side of face area, the rest of the skin was without rashes, erythema, edema, or bruising. There is no tenting of the skin. Capillary reflex less than 2 seconds. HEAD: Normocephalic atraumatic. EARS: External auditory canals clear, tympanic membranes pearly alcantara without erythema or effusion bilaterally. EYES: Pupils equal round and reactive to light and accommodation. Conjunctivae without injection, sclerae without icterus. Extraocular movements intact. NOSE: Patent, turbinates without inflammation or discharge. No sinus tenderness. MOUTH: Mucous membranes moist. Pharynx without erythema or exudate. Uvula midline. Airway patent. Tongue does not deviate. NECK: Supple without nuchal rigidity. No lymphadenopathy. No thyromegaly. Cervical spine is nontender. No JVD. HEART: Regular rate and rhythm LUNGS: Clear to auscultation bilaterally without wheezes, rales or rhonchi. No retractions or accessory muscle use. ABDOMEN: Positive bowel sounds x 4. Normal tympanic percussion. Soft, nontender, without masses or organomegaly. Almaraz sign negative. No guarding or rebound tenderness. No CVA tenderness MUSCULOSKELETAL: No muscle atrophy, erythema, or edema noted. 5-5 strength throughout. NEURO: Patient was alert and oriented to person place and time. Normal sensation to light and sharp touch. No focal neurological deficits. Course Administered Medications Discontinued Medications Gadobutrol (Gadobutrol 65ml Vial) 10 ml IV ONCE ONE Stop: 06/25/22 01:08 Last Admin: 06/25/22 01:07 Dose: 10 ml Documented By: INES Lidocaine HCl (Xylocaine 1%/Sod Bicarb 20 Ml Vial) Confirm Administered Dose 20 ml INFIL .STK-MED ONE Stop: 06/25/22 00:11 Last Admin: 06/25/22 00:31 Dose: 20 ml Documented By: ZOILA Medical Decision Making Medical Records Attestation: I reviewed the patient's medical records. Home Medications Current Medication List: was personally reviewed by me Laboratory Data Attestation: I reviewed the patient's lab results. Result diagrams: 06/24/22 22:59 06/24/22 22:59 Lab Results 06/24/22 06/24/22 Range/Units 22:59 22:59 WBC 5.27 (4.8-10.8) K/ul RBC 3.90 L (4.63-6.08) M/uL Hgb 12.2 L (14.0-18.0) g/dl Hct 35.7 L (40.1-51.0) % MCV 91.5 (80.0-100.0) fL MCH 31.3 (25.0-34.0) pg MCHC 34.2 (32.0-36.0) g/dL RDW Std Deviation 53.0 H (36.4-46.3) fL RDW Coeff of Marisol 15.9 H (11.5-14.5) % Plt Count 150 (130-400) K/uL MPV 9.2 L (9.4-12.4) fL Immature Gran % (Auto) 0.4 % Neut % (Auto) 73.0 % Lymph % (Auto) 12.3 % [place] % (Auto) 12.9 % Eos % (Auto) 0.6 % Baso % (Auto) 0.8 % Neut # (Auto) 3.85 (1.4-6.5) K/uL Lymph # (Auto) 0.65 L (1.2-3.4) K/uL [place] # (Auto) 0.68 (0.24-0.82) K/uL Eos # (Auto) 0.03 (0-0.50) K/uL Baso # (Auto) 0.04 (0-0.2) K/uL Immature Gran # (Auto) 0.02 (0.00-0.02) K/uL Sodium 129 L (136-145) mmol/L Potassium 4.2 (3.5-5.1) mmol/L Chloride 95 L (98-107) mmol/L Carbon Dioxide 25 (21-32) mmol/L Anion Gap 9 (3-11) BUN 18 (6-23) mg/dl Creatinine 0.85 (0.6-1.4) mg/dl Est Cr Clr Drug Dosing 75.2 ml/min Est GFR ( Amer) 90.8 ml/min Est GFR (Non-Af Amer) 78.3 ml/min BUN/Creatinine Ratio 21.2 H (10-20) Glucose 102 H (70-99(Fasting)) mg/dl Calcium 10.3 H (8.5-10.1) mg/dl Total Bilirubin 4.4 H (0.2-1.0) mg/dl AST 85 H (13-39) U/L ALT 55 H (7-52) U/L Alkaline Phosphatase 885 H (34-104) U/L Troponin I High Sens 12.7 (0-20) pg/ml Total Protein 6.4 (6.0-8.3) gm/dl Albumin 3.4 (3.4-5.0) gm/dl Globulin 3.0 (2.5-4.0) gm/dl Albumin/Globulin Ratio 1.1 (0.9-2) Imaging Data Attestation: I personally reviewed and interpreted this imaging study as follows: MDM Narrative Prior records/ancillary studies reviewed and summarized above. Nursing notes reviewed. Additional history obtained from nursing. The patient's history was concerning for fall. Differential diagnosis: Etiologies such as metabolic, infection, hypo/hyperglycemia, electrolyte abnormalities, cardiac sources, intracerebral event, toxicologic, neurologic, as well as others were entertained. Physical examination: As above. ER treatment provided: IV Lock An order was placed for continuous cardiac monitoring. The monitor shows a rate of 60-1 50 with a sinus rhythm. Wound care by nursing Laceration Repair Location: Right ear Total length: 5 cm Complexity: Simple Verbal consent was obtained after the risks and benefits were explained, including but not limited to bleeding, scarring, infection, pain, and bone/joint/nerve damage. At this time, the risks of the procedure are less than the risks of NOT performing the procedure. A time out was taken and the correct patient and site identified. The skin was prepped with betadine. The target area was anesthetized with 2 ml of 1% lidocaine without epinephrine. Copious irrigation was performed using nss. The skin was re-prepped with betadine and a sterile field set. The wound was explored for foreign bodies and none found. Examination revealed no injury to deep structures such as tendons, bone, or significant blood vessels. Debridement was not performed. The wound edges were approximated using 5, 6-0 simple interrupted nylon sutures. Hemostasis and excellent approximation was achieved. Antibacterial ointment and a sterile dressing applied. Detailed wound care instructions and signs and symptoms of infection reviewed with the pt. No complications and the patient tolerated the procedure well. On reassessment the patient felt better. Diagnostics interpretation by me: ECG: Ordered for lightheadedness EKG: Normal sinus, incomplete right bundle, low voltage, rate of 103. Impression sinus tachycardia with incomplete right bundle branch block interpreted by myself I think arrhythmia is unlikely. EKG shows normal sinus rhythm with no QT prolongation or WPW. There are no findings to suggest Brugada syndrome. Cardiac monitoring in the emergency department reveals no tachycardic or bradycardic dysrhythmia. Hypertrophic cardiomyopathy was considered but there are no clear historical elements pointing toward this. EKG is not suggestive. The labs revealed elevated LFTs and alk phos. Patient has known metastatic rectal carcinoma w/ liver mets Negative troponin CT C SPINE: No fracture or acute bony abnormality. Moderate to severe degenerative disc and facet disease. Radiologist: Brittany Nunez M.D. Preliminary Findings Only See Final Report For Complete Findings CT HEAD: New, mild left frontal hyperdensity is nonspecific, small hemorrhage not excluded, however, there is a second lesion in the left medial occipital lobe, that is masslike, with peripheral hyperdensity, could reflect neoplasm. No edema, mass-effect, hydrocephalus, herniation or midline shift. Consider MRI brain with and without contrast for further evaluation. Stable moderate atrophy and chronic white matter disease, compared with MRI brain 11/26/21, given differences in technique. Radiologist: Brittany Nunez M.D. Study ready at 23:44 and initial results transmitted at 00:01 Consultation: A consultation was placed with the hospitalist. The case was discussed and diagnostics were reviewed. The patient was evaluated in the ER for further treatment. Exam and history seem consistent with worsening metastatic carcinoma. Laceration was repaired as above. CT was abnormal so MRI was ordered per radiology recommendation. Patient has new mets present. He did not have a headache. He is not altered. Medicine is consulted. He will be evaluated for admission. Advanced imaging was ordered as the CT was abnormal. There was no obvious large intracranial hemorrhage. Patient reports his tetanus is current. Patient chronically has had his alk phos elevated most likely from his cancer.. By the evaluation outlined above emergent etiologies such as infection, electrolyte abnormalities, cardiac sources, intracerebral event, toxologic, abnormalities blood glucose, metabolic, as well as others were deemed relatively unlikely. The pt informed about the findings as listed above. All questions were answered and pleased with the treatment. The chart was completed utilizing [employer] Speech voice recognition software. Grammatical errors, random word insertions, pronoun errors, and incomplete sentences are an occassional consequence of this system due to software limitations, ambient noise, and hardware issues. Any formal questions or concerns about the content, text, or information contained within the body of this dictation should be directly addressed to the physician guest services assistant for clarification. Impression & Plan Brain metastases, Fall, Laceration of ear, Light-headed Discharge Plan Visit Data Chief Complaint: Fall ED Provider: Kaitlin Reed ED Midlevel Provider: Jasmin Olivier Discharge Problem: Brain metastases, Fall, Laceration of ear, Light-headed Patient Disposition: Admitted As Inpatient Condition: Fair Forms Stand Alone Forms: [facility] Prescriptions Prescriptions: No Action oxycodone 5 mg capsule 5 mg PO .COMPLEX PRN (Reason: Pain) Rx Instructions: 5 mg orally q4-6 hours PRN; oxycodone 5 mg tablet 5 mg PO BID Qty: 60 0RF Rx Instructions: + prn q 6 hours . mecobalamin (vitamin B12) 1,000 mcg tablet,chewable 1,000 mcg PO DAILY Qty: 30 0RF prochlorperazine maleate 10 mg tablet 10 mg PO Q6H PRN (Reason: nausea and vomiting) Qty: 30 0RF pantoprazole 40 mg tablet,delayed release (DR/EC) 40 mg PO QAM Qty: 90 0RF melatonin 10 mg capsule 10 mg PO HS Qty: 30 0RF multivitamin Tablet 1 tab PO DAILY Qty: 30 0RF Adult 50 Plus Probiotic 4 billion cell capsule 4,000 mmu cells PO DAILY Rx Instructions: administer with a meal docusate sodium [Stool Softener] 100 mg capsule 100 mg PO Q OTHER DAY PRN (Reason: Constipation) acetaminophen 500 mg capsule 1,000 mg PO Q6H PRN (Reason: fever. pain) Rx Instructions: two tablets orally bid and also every 6 hours PRN; not to exceed 3gm daily cholecalciferol (vitamin D3) [Vitamin D3] 25 mcg (1,000 unit) tablet 25 mcg PO QAM Referrals Referrals: ProLuiz MD [Primary Care Provider] -
[2022-06-24 23:38] LABS: Albumin Globulin Ratio 1.1 (0.9-2); Albumin Level 3.4 gm/dl (3.4-5.0); BUN Creatinine Ratio 21.2 (10-20); Bilirubin,Total 4.4 mg/dl (0.2-1.0); Calcium 10.3 mg/dl (8.5-10.1); Creatinine Clr Calc Pharmacy 75.2 ml/min; Est GFR (African American) 90.8 ml/min; Est GFR (Non-African American) 78.3 ml/min; Potassium 4.2 mmol/L (3.5-5.1); Total Protein 6.4 gm/dl (6.0-8.3)
[2022-06-24 23:40] LABS: Troponin I High Sensitivity 12.7 pg/ml (0-20)
[2022-06-25] MEDS ORDERED: XYLOCAINE 1%/SOD BICARB 20 ML VIAL INFIL ONE (00:10)
[2022-06-25] MEDS ORDERED: GADOBUTROL 65ML VIAL IV ONE (01:07)
--- NOTE | 2022-06-25 01:59 | History & Physical Report ---
Date of Service June 25, 2022 Assessment & Plan (1) Brain metastases: Plan: Saleem Birmingham is an 86-year-old male with history of rectal cancer with metastasis to the liver and spine who presented today due to a fall at home. Found to have likely brain metastases on head imaging. 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 Montero Recently established with radiation oncology, Dr. Iverson, for palliative radiation to spine Current brain MRI concerning for new finding of brain metastases Will consult radiation oncology for evaluation of possible palliative radiation to brain Continue oxycodone 5 mg p.o. 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 cortisol Fluid restrict to 1500 mL Fall Brain metastases possibly contributing, less likely to be related to his hyponatremia Fall precautions PT/OT evaluations Patient does live alone at home and states "I will have to change that" GERD Continue home pantoprazole daily DVT prophylaxis: SCDs at this time due to brain MRI mentioning remote possibility of hemorrhages Dispo: MedSurg, PT/OT consults to evaluate needs Diet: Regular CODE STATUS: DNR/DNI, discussed with patient (2) Fall: (3) Rectal cancer metastasized to bone: (4) Liver masses: (5) Hyponatremia: History of Present Illness Primary Care Provider: Luiz Kraft MD Saleem Birmingham is an 86-year-old male with history of rectal cancer with metastasis to the liver and spine who presented today due to a fall at home. Patient states she was in his bathroom on the toilet and then stood up, as he was turning towards the sink he felt a bit lightheaded and fell over hitting his head on the countertop. He reports he was unable to get up but was able to reach his phone and call someone to come help him. He was brought in for further evaluation due to his fall and injuries related to it. He denies loss of consciousness, chest pain, palpitations, shortness of breath, fever, chills, nausea, vomiting, numbness, weakness, tingling. In the ED, patient had head CT showing "new, mild left frontal hyperdensity is nonspecific, small hemorrhage not excluded, however, there is a second lesion in the left medial occipital lobe that is masslike with peripheral hyperdensity, could reflect neoplasm. No edema, mass-effect, hydrocephalus, herniation or midline shift. Consider MRI brain with and without contrast for further evaluation." Follow-up brain MRI showed "compared with head CT done earlier in head CT 10/31/2021. There are 3 hyperintense nodules in the left hemisphere, in addition to small, bilateral enhancing nodules in the right external capsule and left temporal lobe, nonspecific. Given multiplicity of lesions metastatic disease is most likely. However, cannot entirely exclude focus of hemorrhage left frontal/left periventricular and left medial occipital lobes where there are subacute products of hemorrhage." Cervical spine CT was negative for fractures or bony abnormality. Blood work showing normal white count, stable anemia with hemoglobin of 12.2, normal platelet count. Did have hyponatremia with sodium of 129, elevations of T bili to 4.4, AST to 85, ALT to 55, alk phos 885. Troponin normal. Allergies Allergy/AdvReac Type Severity Reaction Status Date / Time No Known Allergies Allergy Verified 06/21/22 09:49 Home Medications Medication Instructions Recorded Confirmed Type lactobacillus combination no.9 4 4,000 mmu cells PO DAILY 12/16/21 06/24/22 History billion cell capsule (Adult 50 Plus Probiotic) docusate sodium 100 mg capsule 100 mg PO Q OTHER DAY PRN 06/14/22 06/24/22 History (Stool Softener) Constipation oxycodone 5 mg capsule 5 mg PO .COMPLEX PRN Pain 06/14/22 06/24/22 History cholecalciferol (vitamin D3) 25 25 mcg PO QAM 06/21/22 06/24/22 History mcg (1,000 unit) tablet (Vitamin D3) mecobalamin (vitamin B12) 1,000 1,000 mcg PO DAILY #30 tabs 06/21/22 06/24/22 Rx mcg chewable tablet melatonin 10 mg capsule 10 mg PO HS sleep #30 caps 06/21/22 06/24/22 Rx multivitamin 1 tab PO DAILY #30 tabs 06/21/22 06/24/22 Rx oxycodone 5 mg tablet 5 mg PO BID pain #60 tabs 06/21/22 06/24/22 Rx pantoprazole 40 mg tablet,delayed 40 mg PO QAM #90 tabs 06/21/22 06/24/22 Rx release prochlorperazine maleate 10 mg 10 mg PO Q6H PRN nausea and 06/21/22 06/24/22 Rx tablet vomiting #30 tabs acetaminophen 500 mg capsule 1,000 mg PO Q6H PRN fever. pain 06/24/22 06/24/22 History Past Med/Surg History Medical History Chronic gastroesophageal reflux disease Degenerative disc disease Encounter for pre-operative examination Encounter for pre-operative examination Obesity Periorbital hematoma of left eye age 11 with surgical removal. Severe obstructive sleep apnea CPAP Venous insufficiency bilateral ankle edema (reason for HCTZ) Surgical History History of cataract surgery left History of colonoscopy History of eye surgery S/P epidural steroid injection Family History Father Cancer Prostate cancer Mother Myocardial infarction Brother Prostate cancer Other Coronary heart disease No family history of adverse response to anesthesia Denies family history of Ovarian cancer Breast cancer Colorectal cancer Social History Smoking Status: Former smoker Tobacco Type: Cigarettes Second Hand Exposure: No; Hx Alcohol Use: Yes Alcohol type: beer and hard liquor Alcohol Intake Frequency Comment: socially Hx Substance Use: No Preferred Language: Macedonian Communication Ability: Effective Medical Billing Coder Required: No Beliefs That Will Affect Care: None marital status: Current Living Situation: Care Home 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[employer]; 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 Feels Safe at Home: No Is there a partner from a previous relationship who is making you feel unsafe now?: No Any Concerns about Your Family Situation: No Would You Like to Speak to Someone About Your Situation: No Safety Concerns: Feels Safe At This Time Childhood Exposure to Second-Hand Smoke: Yes during the past year weight has: decreased > 10 lbs Dental Care, Regularly: Yes Physical Activity Frequency: Daily Seatbelt Use: always Sunscreen Use: Yes Assistive Devices: CPAP Assistive Devices Comment: walker Review of Systems Review of Systems: Per HPI Physical Exam Physical Exam: GENERAL: A&Ox3. NAD. HEENT: PERRL, EOMI. Moist mucous membranes. Right posterior ear with laceration that has been sutured. NECK: No JVD. No lymphadenopathy. CHEST/LUNGS: CTAB A/P. No crackles, wheezes, rales, rhonchi. HEART: RRR. No m/g/r. No carotid bruits. ABDOMEN: NT/ND, soft. BS+ x4 EXTREMITIES: No cyanosis, no clubbing, no edema SKIN: Warm and dry. No rashes or lesions. PSYCHIATRIC: Euthymic affect, no SI, no pressured speech, no hallucinations NEUROLOGIC: No FND. CN II-XII grossly intact. Results & Data Results & Data ([facility]) Vital Signs (Past 12 Hours) Vital Signs Temp Pulse Pulse Resp BP BP Pulse Ox 06/25/22 00:30 82 18 138/86 95 06/24/22 22:55 97 06/24/22 22:33 36.7 C 101 H 18 162/94 H O2 Del Method 06/25/22 00:30 Room Air 06/24/22 22:55 Room Air 06/24/22 22:33 Room Air Supervising Physician Co-Signing Physician Notes Attending addendum: I have physically seen this patient, have supervised the medical residents activities, and agree with the H&P unless as otherwise noted. Assessment and Plan: New brain metastases/rectal cancer with brain, liver and spine metastases- Follow with hematology oncology Dr. Montero Follow with radiation oncology Dr. Iverson for palliation. Consult for possible palliative brain radiation Pain medications as noted Hyponatremia- Sodium 129 on admission Check serum and urine osmolality Likely SIADH Remaining orders and notations as noted Resident Activity Tracking Resident Involvement: Resident Care Provided Care Provided: Adult Hospital Medicine
[2022-06-25 04:08] LABS: Appearance Urine Clear (Clear); Bacteria Urine Automated Negative (Negative); Blood Urine Negative (Negative); Color Urine Dark Yellow; Epithelial Cell Urine Auto 0-5 /lpf (0-5); Glucose Urine UA Negative (Negative); Ketones Urine 1+ (Negative); Leukocyte Esterase Urine Trace (Negative); Nitrite Urine Negative (Negative); Protein Urine Negative (Negative); RBC Urine Automated 0-4 /hpf (0-4); Urobilinogen Urine Positive (Negative); pH Urine 5.5 (4.5-7.5)
[2022-06-25 04:09] LABS: Bilirubin Urine 1+ (Negative)
[2022-06-25] MEDS ORDERED: POLYETHYLENE (MIRALAX) 17 GM PACK PO PRN (06:04)
[2022-06-25] MEDS ORDERED: DOCUSATE SODIUM 100 MG CAP PO PRN (06:04)
[2022-06-25] MEDS ORDERED: oxyCODONE HCL IR 5 MG TAB (IMMEDIATE RELEASE) PO PRN (06:14)
--- NOTE | 2022-06-25 07:44 | CT Scan Report ---
CERVICAL SPINE CT CT DOSE: HISTORY: Fall. Headache. TECHNIQUE: Multiaxial CT images of the cervical spine were performed and reformatted in the sagittal and coronal plane without the use of contrast. A dose lowering technique was utilized adhering to th e principles of ALARA. COMPARISON: None. FINDINGS: No fractures. No subluxation. Prevertebral soft tissues and the C1-C2 interval are intact. No pneumothorax. Mild degenerative changes throughout the cervical spine. The left C2-C3 facets are f used. IMPRESSION: No fractures within the cervical spine. ACT 112: Negative or not required by law. Electronically signed by: Gino Burger M.D. 06/25/2022 7:43 AM
--- NOTE | 2022-06-25 08:37 | Magnetic Resonance Report ---
MRI OF THE BRAIN WITHOUT AND WITH IV CONTRAST CLINICAL HISTORY: Rectal carcinoma. Fall. Abnormal CT. COMPARISON STUDY: Head CT June 24, 2022 and MRI of the brain November 26, 2021. TECHNIQUE: Utilizing a 1.5 Kaye magnet and dedicated coil, multiplanar, multiecho imaging of the br ain was performed pre and postcontrast administration. IV administration of 10 mL of [address] contra st was uneventful. Thin cut T1 post contrast imaging was performed. FINDINGS: There are no foci of restricted diffusion to suggest acute infarct. There is increased sign al intensity within the brain on diffusion-weighted sequence are due to hemorrhagic lesions. Note is made of multiple supratentorial T1 hyperintense lesions. The largest is a 1.5 cm left frontal lobe le shaggy. There is mild associated vasogenic edema. These suggest hemorrhagic metastases. Several additio nal nonhemorrhagic enhancing lesions are also noted consistent with metastases. These lesions are new since MRI of November 26, 2021. There is no mass effect. Ventricular system is stable. Basal cisterns are patent. There are no extra-axial collections. A 1.3 cm enhancing focus within the left frontal bone is unchanged since previous MRI. White matter T2 hyperintense foci favor small vessel disease. IMPRESSION: Multiple supratentorial lesions which are new since MRI of November 26, 2021. These are consi stent with metastases, the majority of which are hemorrhagic. Mild associated vasogenic edema. No sig nificant mass effect. ACT 112: Negative or not required by law. Electronically signed by: Nima Ernst M.D. 06/25/2022 8:35 AM
--- NOTE | 2022-06-25 08:42 | CT Scan Report ---
CT OF THE HEAD WITHOUT CONTRAST CLINICAL HISTORY: fall, hit head COMPARISON STUDY: MRI of the brain November 26, [address] October 31, 2021. CT DOSE: 1204.45 mGy.cm TECHNIQUE: Helical axial images of the head were obtained without IV contrast. Automated exposure con trol was utilized for the study. A dose lowering technique was utilized adhering to the principles o f ALARA. FINDINGS: A few intra-axial supratentorial hyperdense foci have developed since prior head CT and MRI . These include a 1.3 cm left frontal lobe lesion on axial image 24 of 36 and a 1.1 cm left parietal lobe lesion on image 23. Mild vasogenic edema is noted adjacent to the left frontal lobe lesion. Ther e is also a 9 mm hypodense lesion within the body of the left caudate. Ventricular system is stable. Basal cisterns are patent. There are no extra axial fluid collections. White matter hypodensity sugge sts small vessel disease. There is no acute calvarial fracture. IMPRESSION: 1. Interval development of several hyperdense intra-axial lesions since prior head CT and MRI. These favor hemorrhagic metastases given history of malignancy. Mild vasogenic edema. No significant mass e ffect. 2. No acute traumatic findings. ACT 112: Negative or not required by law. Electronically signed by: Nima Ernst M.D. 06/25/2022 8:40 AM
[2022-06-25] MEDS: CYANOCOBALAMIN (B-12) 500 MCG TABLET PO SCH (09:02)
[2022-06-25] MEDS: MULTIVITAMIN TAB PO SCH (09:02)
[2022-06-25] MEDS: PANTOprazole 40 MG TAB PO SCH (09:02)
[2022-06-25] MEDS: ADVANCED PROBIOTIC 1250 MG CAPSULE PO SCH (09:02)
[2022-06-25] MEDS: oxyCODONE HCL IR 5 MG TAB (IMMEDIATE RELEASE) PO SCH ×2 (09:07→21:03)
--- NOTE | 2022-06-25 12:40 | Radiation OncologyConsultation ---
Date of Consultation June 25, 2022 Assessment & Plan (1) Brain metastases: Assessment: Mr. Birmingham is an 86-year-old male with a history of rectal cancer with prior documented metastatic disease to the liver and spine. He was receiving palliative radiation to the T-spine for pain and has received 2 out of a 10 fractions. He presented to the ED department following a fall at home. Head CT shows interval development of several hyperdense intra-axial lesions compared to previous head CTs and MRIs favoring hemorrhagic metastatic disease. Brain MRI was performed which showed 7 lesions the largest measuring 1.5 cm in the left frontal lobe with mild associated vasogenic edema suggestive of hemorrhagic metastasis. These are new lesions compared to a prior MRI of 11/26/2021. There was no significant mass-effect. A 1.3 cm enhancing focus is noted in the left frontal bone unchanged from previous MRIs. Treatment Options: 1. Whole brain palliative radiation. 2. Stereotactic radiation 3. Hospice and observation. Recommendations: I am recommending that the patient continue his palliative radiation to the T-spine this coming Tuesday. I am also recommending that we proceed with a CT simulation of his brain and plan for a course of stereotactic radiation to the 7 identified new lesions on recent brain MRI. Plan: 1. If the patient is still in the hospital on Tuesday we will bring him down and treat his T-spine and simulate him for planned SRS to the brain lesions. 2. If the patient has been discharged by next Tuesday we will contact him at home and arrange for him to come in as an outpatient for his third palliative treatment to his T-spine and to be simulated for SRS treatment to his brain lesions. 3. Patient will continue under the care of Dr. Montero. 4. Patient will continue under care of his PCP. Rationale/Explanation of Treatment: This unfortunate 86-year-old male has evidence of metastatic disease from a rectal primary significantly to the liver and to the bone. MRI on November 26, 2021 showed no evidence of brain metastasis. However following a fall at home a recent CT of the head and MRI of the brain showed evidence of multiple lesions. The largest measuring 1.5 cm, second largest 1.3 cm with the remaining 0.5 cm or less. A total of 7 lesions were identified. The only lesion was significant vasogenic edema with the left frontal lobe lesion. The patient does not appear to have significant neurologic symptoms from his small brain lesions. He would likely benefit from a course of Decadron to decrease the edema of the 1 largest left frontal lobe lesion. The patient is still having some back pain and we will continue treatment to his T-spine. The patient has received 2 of planned 10 fractions to date and will continue next Tuesday. The patient is denying headache or neurologic symptoms. He specifically denies any sensory deficits or significant motor weakness. We will plan to have the patient undergo CT simulation of his brain and diffusing those images with his MRI of the brain plan to deliver a course of SRS to his individual brain lesions. This has been shown to give better response with significantly less potential side effects. The patient had multiple questions which were answered to his full satisfaction. Thank you for allowing us to participate in the care of this patient. This chart was completed in part utilizing [employer] Speech Voice Recognition software. Grammatical errors, random word insertions, pronoun errors and incomplete sentences are occasional consequence of this system due to software limitations, ambient noise and hardware issues. Any formal questions or concerns about the content, text or information contained within the body of this dictation should be directly addressed to the provider for clarification. Osmar Hdz MD Department of Radiation Oncology [facility] and [facility] History of Present Illness Reason for Consultation: A new finding of metastatic brain disease. Attending Physician: Bubba Chen MD History of Present Illness 10/27/2021. Emergency room evaluation for decreased appetite, weight loss and rectal pain. Admitted. 10/27/2021. CT of abdomen pelvis. Rectal wall thickening, pj metastasis and liver metastasis. 10/28/2021. Flexible sigmoidoscopic examination. Fungating and infiltrating and ulcerated obstructing tumor of the rectum. Biopsy shows small cell neuroendocrine carcinoma. 11/17/2021. Initiation of chemotherapy with carboplatin and etoposide. 11/26/2021. Brain MRI negative for metastasis. 12/03/2021. PET/CT. [facility]. Lobulated dotatate avid lower rectal mass compatible with known primary neuroendocrine malignancy. Multiple dotatate avid perirectal pj metastasis. A dotatate avid hepatic metastasis. 2 small upper lobe pulmonary nodules. Suspicious for pulmonary metastasis. C7 spinous process metastasis. Ongoing systemic chemotherapy. Adalimumab added at cycle 5. 02/25/2022. Completion of 5 cycles of treatment. 02/25/2022. PET/CT. Good response to therapy. Interval decrease size and tracer avid rectal mass with residual lesion seen. Hepatic metastasis some of which are unchanged while others demonstrate interval decrease tracer activity. Interval resolution of the previously noted tracer avid lytic lesion within C7 spinous process. No new tracer avid lesions. 03/12/2022. Status post completion of cycle 6. 06/07/2022. PET/CT. Interval development of a lytic lesion in the region of the left T11 transverse process. Development of 3.1 cm right adrenal gland mass. Mixed interval PET and CT changes of the liver and left perirectal nodularity. 06/09/2022. Medical oncology televisit. Recommendation is to refer patient for palliative radiation therapy. Additionally, obtain MRI of brain. Consider switching patient from immunotherapy. 06/22/2022. Patient begins the first of 10 planned palliative fractions to the T-spine. 06/23/2022. Patient received the second of 10 planned palliative fractions to the T-spine. 06/25/2022. Patient is admitted following a fall at home. Work-up reveals evidence of metastatic brain disease. Allergies Allergy/AdvReac Type Severity Reaction Status Date / Time No Known Allergies Allergy Verified 06/21/22 09:49 Home Medications Medication Instructions Recorded Confirmed Type lactobacillus combination no.9 4 4,000 mmu cells PO DAILY 12/16/21 06/24/22 History billion cell capsule (Adult 50 Plus Probiotic) docusate sodium 100 mg capsule 100 mg PO Q OTHER DAY PRN 06/14/22 06/24/22 History (Stool Softener) Constipation oxycodone 5 mg capsule 5 mg PO .COMPLEX PRN Pain 06/14/22 06/24/22 History cholecalciferol (vitamin D3) 25 25 mcg PO QAM 06/21/22 06/24/22 History mcg (1,000 unit) tablet (Vitamin D3) mecobalamin (vitamin B12) 1,000 1,000 mcg PO DAILY #30 tabs 06/21/22 06/24/22 Rx mcg chewable tablet melatonin 10 mg capsule 10 mg PO HS sleep #30 caps 06/21/22 06/24/22 Rx multivitamin 1 tab PO DAILY #30 tabs 06/21/22 06/24/22 Rx oxycodone 5 mg tablet 5 mg PO BID pain #60 tabs 06/21/22 06/24/22 Rx pantoprazole 40 mg tablet,delayed 40 mg PO QAM #90 tabs 06/21/22 06/24/22 Rx release prochlorperazine maleate 10 mg 10 mg PO Q6H PRN nausea and 06/21/22 06/24/22 Rx tablet vomiting #30 tabs acetaminophen 500 mg capsule 1,000 mg PO Q6H PRN fever. pain 06/24/22 06/24/22 History Patient History Medical History Chronic gastroesophageal reflux disease Degenerative disc disease Encounter for pre-operative examination Encounter for pre-operative examination Obesity Periorbital hematoma of left eye age 11 with surgical removal. Severe obstructive sleep apnea CPAP Venous insufficiency bilateral ankle edema (reason for HCTZ) Surgical History History of cataract surgery left History of colonoscopy History of eye surgery S/P epidural steroid injection Family History Father Cancer Prostate cancer Mother Myocardial infarction Brother Prostate cancer Other Coronary heart disease No family history of adverse response to anesthesia Denies family history of Ovarian cancer Breast cancer Colorectal cancer Social History Smoking Status: Former smoker Tobacco Type: Cigarettes Second Hand Exposure: No; Hx Alcohol Use: Yes Alcohol type: beer Alcohol Intake Frequency Comment: socially Hx Substance Use: No Preferred Language: Irish Communication Ability: Effective Overage Shortage And Damage Clerk Required: No Beliefs That Will Affect Care: None marital status: Current Living Situation: Alone 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 Respiratory: normal respiratory effort, lungs clear to auscultation Cardiovascular: RRR, no murmur, no edema Gastrointestinal (Abdomen): The abdomen is soft with tenderness in the right upper quadrant with a palpable liver edge and evidence of hepatomegaly. There are no abdominal masses appreciated. Musculoskeletal: no cyanosis or clubbing, extremities motor strength 5/5 Skin: no rashes, warm and dry Neurologic: Cranial nerves are intact. Psychiatric: A+Ox3, euthymic affect Lymphatic: There is no palpable cervical, supraclavicular, axillary or inguinal adenopathy appreciated. Results (Rad Onc) Imaging Studies: were reviewed and pertinent findings noted in HPI MRI OF THE BRAIN WITHOUT AND WITH IV CONTRAST CLINICAL HISTORY: Rectal carcinoma. Fall. Abnormal CT. COMPARISON STUDY: Head CT June 24, 2022 and MRI of the brain November 26, 2021. TECHNIQUE: Utilizing a 1.5 Kaye magnet and dedicated coil, multiplanar, multiecho imaging of the brain was performed pre and postcontrast administration. IV administration of 10 mL of Gadavist contrast was uneventful. Thin cut T1 post contrast imaging was performed. FINDINGS: There are no foci of restricted diffusion to suggest acute infarct. There is increased signal intensity within the brain on diffusion-weighted sequence are due to hemorrhagic lesions. Note is made of multiple supratentorial T1 hyperintense lesions. The largest is a 1.5 cm left frontal lobe lesion. There is mild associated vasogenic edema. These suggest hemorrhagic metastases. Several additional nonhemorrhagic enhancing lesions are also noted consistent with metastases. These lesions are new since MRI of November 26, 2021. There is no mass effect. Ventricular system is stable. Basal cisterns are patent. There are no extra-axial collections. A 1.3 cm enhancing focus within the left frontal bone is unchanged since previous MRI. White matter T2 hyperintense foci favor small vessel disease. IMPRESSION: Multiple supratentorial lesions which are new since MRI of November 26, 2021. These are consistent with metastases, the majority of which are hemorrhagic. Mild associated vasogenic edema. No significant mass effect.
--- NOTE | 2022-06-25 12:46 | Communication Note ---
Date of Service: June 25, 2022 The patient was seen and examined by me while still in the ED. Agree with assessment and plan. Radiation oncology consultation is pending.
--- NOTE | 2022-06-25 20:21 | Billing Data ---
Date of Service June 25, 2022 Coding Level of Care Code 89393 Initial Inpt Care Lvl 3
[2022-06-25] MEDS: PROCHLORPERAZINE MALEATE 10 MG TAB PO PRN (21:04)
[2022-06-25] MEDS: MELATONIN 3 MG TAB PO SCH (21:04)
--- NOTE | 2022-06-25 22:55 | Electrocardiogram Report ---
Test Reason : Blood Pressure : / mmHG Vent. Rate : 103 BPM Atrial Rate : 103 BPM P-R Int : 178 ms QRS Dur : 118 ms QT Int : 338 ms P-R-T Axes : 068 -05 023 degrees QTc Int : 442 ms Poor data quality, interpretation may be adversely affected Sinus tachycardia Low voltage QRS Incomplete right bundle branch block Borderline ECG When compared with ECG of 31-OCT-2021 11:41, Vent. rate has increased BY 35 BPM Questionable change in QRS axis Confirmed by Klever Olguin ([id number]) on 06/25/2022 10:54:51 PM Referred By: REFERRED SELF Confirmed By:Klever Olguin
[2022-06-26] MEDS: CYANOCOBALAMIN (B-12) 500 MCG TABLET PO SCH (08:40)
[2022-06-26] MEDS: ADVANCED PROBIOTIC 1250 MG CAPSULE PO SCH (08:41)
[2022-06-26] MEDS: PANTOprazole 40 MG TAB PO SCH (08:41)
[2022-06-26] MEDS: MULTIVITAMIN TAB PO SCH (08:42)
[2022-06-26] MEDS: ACETAMINOPHEN 325 MG TAB PO PRN (08:42)
[2022-06-26] MEDS: oxyCODONE HCL IR 5 MG TAB (IMMEDIATE RELEASE) PO SCH ×2 (08:42→21:40)
[2022-06-26 08:55] LABS: Basophils # (auto) 0.04 K/uL (0-0.2); Basophils % (auto) 0.8 %; Eosinophils # (auto) 0.07 K/uL (0-0.50); Eosinophils % (auto) 1.4 %; Hematocrit (blood only) 36.3 % (40.1-51.0); Hemoglobin 12.5 g/dl (14.0-18.0); Immature Granulocytes # (auto) 0.02 K/uL (0.00-0.02); Immature Granulocytes % (auto) 0.4 %; Lymphocytes # (auto) 0.75 K/uL (1.2-3.4); Lymphocytes % (auto) 15.5 %; Mean Corpuscular Hemoglobin 31.3 pg (25.0-34.0); Mean Corpuscular Hgb Conc 34.4 g/dL (32.0-36.0); Mean Corpuscular Volume 90.8 fL (80.0-100.0); Mean Platelet Volume 9.2 fL (9.4-12.4); Monocytes # (auto) 0.67 K/uL (0.24-0.82); Monocytes % (auto) 13.8 %; Neutrophils % (auto) 68.1 %; Platelet Count 159 K/uL (130-400); RDW Coefficient of Variation 16.3 % (11.5-14.5); RDW Standard Deviation 54.6 fL (36.4-46.3); White Blood Count 4.85 K/ul (4.8-10.8)
[2022-06-26 08:58] LABS: Albumin Globulin Ratio 1.2 (0.9-2); Albumin Level 3.4 gm/dl (3.4-5.0); BUN Creatinine Ratio 22.7 (10-20); Bilirubin,Total 4.9 mg/dl (0.2-1.0); Calcium 10.5 mg/dl (8.5-10.1); Creatinine Clr Calc Pharmacy 85.9 ml/min; Est GFR (African American) 95.6 ml/min; Est GFR (Non-African American) 82.5 ml/min; Globulin 2.9 gm/dl (2.5-4.0); Magnesium 2.2 mg/dl (1.7-2.4); Potassium 4.2 mmol/L (3.5-5.1); Total Protein 6.3 gm/dl (6.0-8.3)
--- NOTE | 2022-06-26 11:31 | Hospitalist Progress Note ---
Date of Service June 26, 2022 Assessment & Plan (1) Brain metastases: Plan: Saleem Birmingham is an 86-year-old male with history of rectal cancer with metastasis to the liver and spine who presented today due to a fall at home. Found to have likely brain metastases on head imaging. 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 Montero Recently established with radiation oncology, Dr. Iverson, for palliative radiation to spine With new finding of brain mets this admission, radiation therapy to the brain for palliation planned 29 June Continue oxycodone 5 mg p.o. 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 ) He told me he lives with his GERD Continue home pantoprazole daily DVT prophylaxis: SCDs at this time due to brain MRI mentioning remote possibility of hemorrhages Diet: Regular CODE STATUS: DNR/DNI, discussed with patient (2) Fall: (3) Rectal cancer metastasized to bone: (4) Liver masses: (5) Hyponatremia: Admission and Anticipated Discharge Date Admission Date: June 25, 2022 Subjective At 10:30 AM, the patient had walked back on his own from the bathroom, feels well, states legs are weak for the last 1 month and fell 1 month ago. Mixed to some memory problems. Appetite is gone down. Denies nausea/vomiting/shortness of breath/headaches or visual disturbances/focal neurological weakness/depressed mood/cough Physical Exam Physical Exam: Pleasant moderately built male, interactive and conversant, oriented to month and place, good insight and judgment, appropriate affect Chest is clear to station CVS S1-S2 Extremities no edema CONTRACT OFFICER 5 x 5 to plantar flexors and elbow flexors Results & Data Results & Data ([facility]) Vital Signs (Past 12 Hours) Vital Signs Temp Pulse Resp BP BP Pulse Ox O2 Del Method 06/26/22 07:20 Room Air 06/26/22 08:44 36.3 C L 81 17 133/79 96 Room Air 06/26/22 01:00 36.4 C L 84 16 133/82 96 Room Air 06/26/22 00:40 20 143/92 H Laboratory Results Abnormal lab results 06/25/22 06/26/22 06/26/22 Range/Units 16:20 08:10 08:10 RBC 4.00 L (4.63-6.08) M/uL Hgb 12.5 L (14.0-18.0) g/dl Hct 36.3 L (40.1-51.0) % RDW Std Deviation 54.6 H (36.4-46.3) fL RDW Coeff of Marisol 16.3 H (11.5-14.5) % MPV 9.2 L (9.4-12.4) fL Lymph # (Auto) 0.75 L (1.2-3.4) K/uL Sodium 129 L (136-145) mmol/L Chloride 95 L (98-107) mmol/L BUN/Creatinine Ratio 22.7 H (10-20) Calcium 10.5 H (8.5-10.1) mg/dl Total Bilirubin 4.9 H (0.2-1.0) mg/dl AST 72 H (13-39) U/L Alkaline Phosphatase 801 H (34-104) U/L Urine Osmolality 240 L (500-800) mOsm/kg Medications Administered Home Medications Medication Instructions Recorded Confirmed Last Taken lactobacillus combination no.9 4 4,000 mmu cells PO DAILY 12/16/21 06/24/22 Unknown billion cell capsule (Adult 50 Plus Probiotic) docusate sodium 100 mg capsule 100 mg PO Q OTHER DAY PRN 06/14/22 06/24/22 Unknown (Stool Softener) Constipation oxycodone 5 mg capsule 5 mg PO .COMPLEX PRN Pain 06/14/22 06/24/22 Unknown cholecalciferol (vitamin D3) 25 25 mcg PO QAM 06/21/22 06/24/22 Unknown mcg (1,000 unit) tablet (Vitamin D3) mecobalamin (vitamin B12) 1,000 1,000 mcg PO DAILY #30 tabs 06/21/22 06/24/22 Unknown mcg chewable tablet melatonin 10 mg capsule 10 mg PO HS sleep #30 caps 06/21/22 06/24/22 Unknown multivitamin 1 tab PO DAILY #30 tabs 06/21/22 06/24/22 Unknown oxycodone 5 mg tablet 5 mg PO BID pain #60 tabs 06/21/22 06/24/22 Unknown pantoprazole 40 mg tablet,delayed 40 mg PO QAM #90 tabs 06/21/22 06/24/22 Unknown release prochlorperazine maleate 10 mg 10 mg PO Q6H PRN nausea and 06/21/22 06/24/22 Unknown tablet vomiting #30 tabs acetaminophen 500 mg capsule 1,000 mg PO Q6H PRN fever. pain 06/24/22 06/24/22 Unknown Active Medications Generic Name Dose Route Start Last Admin Trade Name Freq PRN Reason Stop Dose Admin Acetaminophen 650 mg 06/25/22 06:04 06/26/22 08:42 Acetaminophen 325 Mg Tab PO 07/25/22 06:03 650 mg Q4H PRN Administration pain/fever Cyanocobalamin 1,000 mcg 06/25/22 09:00 06/26/22 08:40 Cyanocobalamin (B-12) 500 Mcg Tablet PO 07/25/22 08:59 1,000 mcg DAILY STACY Administration Lactobacillus Acidophilus 2 cap 06/25/22 09:00 06/26/22 08:41 Advanced Probiotic 1250 Mg Capsule PO 07/25/22 08:59 2 cap DAILY STACY Administration Melatonin 9 mg 06/25/22 21:00 06/25/22 21:04 Melatonin 3 Mg Tab PO 07/25/22 20:59 9 mg HS STACY Administration Multivitamins 1 tab 06/25/22 09:00 06/26/22 08:42 Multivitamin Tab PO 07/25/22 08:59 1 tab DAILY STACY Administration Oxycodone HCl 5 mg 06/25/22 09:00 06/26/22 08:42 Oxycodone Hcl Ir 5 Mg Tab (Immediate Release) PO 07/09/22 08:59 5 mg BID STACY Administration Pantoprazole Sodium 40 mg 06/25/22 09:00 06/26/22 08:41 Pantoprazole 40 Mg Tab PO 07/25/22 08:59 40 mg QAM STACY Administration Prochlorperazine 10 mg 06/25/22 06:04 06/25/22 21:04 Prochlorperazine Maleate 10 Mg Tab PO 07/25/22 06:03 10 mg Q6H PRN Administration nausea and vomiting PG Care Time/CCT Total # of Minutes Spent Total Time Spent with Patient: Total time spent is greater than 50% in coordination of care (as documented) at patient's floor/unit and/or counseling patient: Coding Level of Care Code 33591 Subseq Hosp Care Lvl 2 Diagnoses Brain metastases C79.31 Fall W19.XXXA 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
--- NOTE | 2022-06-26 15:10 | XRay Report ---
XR chest 2V PA/lateral CLINICAL HISTORY: Metastatic rectal CA TECHNIQUE: 2 views of the chest were obtained. Comparison: Comparison is made to chest radiograph 10/31/[address] chest 06/04/2022 FINDINGS: No lines and tubes are seen. The aorta is tortuous. The remainder of the cardiomediastinal silhouette is unremarkable. Nodular densities projecting over the right upper lung are unchanged from prior exa m. No evidence of pleural effusion or pneumothorax. IMPRESSION: No acute abnormalities. Nodular densities projecting over the right upper lung are unchanged from danny or exam but do not appear to correlate to nodules on prior radiation therapy CT chest. ACT 112: Negative or not required by law. Electronically signed by: Ajith Castro M.D. 06/26/2022 3:08 PM
[2022-06-26] MEDS: MELATONIN 3 MG TAB PO SCH (21:40)
[2022-06-27] MEDS: oxyCODONE HCL IR 5 MG TAB (IMMEDIATE RELEASE) PO SCH ×2 (09:23→20:30)
[2022-06-27] MEDS: ACETAMINOPHEN 325 MG TAB PO PRN (09:23)
[2022-06-27] MEDS: MULTIVITAMIN TAB PO SCH (09:25)
[2022-06-27] MEDS: ADVANCED PROBIOTIC 1250 MG CAPSULE PO SCH (09:25)
[2022-06-27] MEDS: CYANOCOBALAMIN (B-12) 500 MCG TABLET PO SCH (09:25)
[2022-06-27] MEDS: PANTOprazole 40 MG TAB PO SCH (09:25)
[2022-06-27 09:53] LABS: Anion Gap 6 (3-11); BUN Creatinine Ratio 22.6 (10-20); Blood Urea Nitrogen 19 mg/dl (6-23); Calcium 10.8 mg/dl (8.5-10.1); Carbon Dioxide 29 mmol/L (21-32); Chloride 93 mmol/L (98-107); Creatinine Clr Calc Pharmacy 76.7 ml/min; Est GFR (African American) 91.2 ml/min; Est GFR (Non-African American) 78.7 ml/min; Glucose 100 mg/dl (70-99(Fasting)); Sodium 128 mmol/L (136-145)
[2022-06-27] MEDS ORDERED: FUROSEMIDE INJ 20 MG/2 ML VIAL IV ONE ×2 (14:18→23:00)
--- NOTE | 2022-06-27 14:28 | Hospitalist Progress Note ---
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 Found to have likely brain metastases on head imaging. 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 Montero Recently established with radiation oncology, Dr. Iverson, for palliative radiation to spine With new finding of brain mets this admission, radiation therapy to the brain for palliation planned 29 June Continue oxycodone 5 mg p.o. 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 At this time the patient is somewhat hypovolemic clinically. Will change fluid restriction to free water restriction of 1000 mL/day. Encourage other fluids. Discussed with RN in detail Start normal saline and after 1 L, will give IV Lasix to excrete free water This represents a change from a normal sodium of 138 on his most recent labs in May 2022 TSH 1.55 Fluid restriction 1500 mL-not bothering patientcontinue Fall Brain metastases possibly contributing, less likely to be related to his hyponatremia Fall [facility] Patient does live alone at home and states "I will have to change that"(-this was on admission. 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 Updated him on new brain mets and radiation therapy for palliation planned coming week 06/29. The patient's son and daughter are leaning towards palliative care and hospice. Patient's has been in assisted living for several months as the patient was her primary caregiver. We will have a meeting with the patient's son and daughter tomorrow and then get palliative care involved. Admission and Anticipated Discharge Date Admission Date: June 25, 2022 Subjective at 1230 h, says he feels tired. Was sitting on the chair by the window with lunch tray in front of him. Appetite is poor. Eats about 30% of his meals. Denies nausea or vomiting. Denies abdominal pain No chest pain or shortness of breath Physical Exam Physical Exam: Alert, conversant, oriented to month, place, unable to name his daughter's vacation destination which is [place]. The patient told me that he she is in [place] and then will go to some [facility] Dry oral mucosa, anicteric sclerae, no thyromegaly Chest chest clear to station Abdomen lax nontender Extremities no edema Psychaffect appropriate Insight and judgment-unable to determine as the patient did not have any questions Results & Data Results & Data ([facility]) Vital Signs (Past 12 Hours) Vital Signs Temp Pulse Resp BP Pulse Ox O2 Del Method 06/27/22 08:10 Room Air 06/27/22 07:27 36.6 C 81 16 120/75 97 Room Air Laboratory Results Abnormal lab results 06/27/22 Range/Units 09:15 Sodium 128 L (136-145) mmol/L Chloride 93 L (98-107) mmol/L BUN/Creatinine Ratio 22.6 H (10-20) Glucose 100 H (70-99(Fasting)) mg/dl Calcium 10.8 H (8.5-10.1) mg/dl Medications Administered Home Medications Medication Instructions Recorded Confirmed Last Taken lactobacillus combination no.9 4 4,000 mmu cells PO DAILY 12/16/21 06/24/22 Unknown billion cell capsule (Adult 50 Plus Probiotic) docusate sodium 100 mg capsule 100 mg PO Q OTHER DAY PRN 06/14/22 06/24/22 Unknown (Stool Softener) Constipation oxycodone 5 mg capsule 5 mg PO .COMPLEX PRN Pain 06/14/22 06/24/22 Unknown cholecalciferol (vitamin D3) 25 25 mcg PO QAM 06/21/22 06/24/22 Unknown mcg (1,000 unit) tablet (Vitamin D3) mecobalamin (vitamin B12) 1,000 1,000 mcg PO DAILY #30 tabs 06/21/22 06/24/22 Unknown mcg chewable tablet melatonin 10 mg capsule 10 mg PO HS sleep #30 caps 06/21/22 06/24/22 Unknown multivitamin 1 tab PO DAILY #30 tabs 06/21/22 06/24/22 Unknown oxycodone 5 mg tablet 5 mg PO BID pain #60 tabs 06/21/22 06/24/22 Unknown pantoprazole 40 mg tablet,delayed 40 mg PO QAM #90 tabs 06/21/22 06/24/22 Unknow n release prochlorperazine maleate 10 mg 10 mg PO Q6H PRN nausea and 06/21/22 06/24/22 Unknown tablet vomiting #30 tabs acetaminophen 500 mg capsule 1,000 mg PO Q6H PRN fever. pain 06/24/22 06/24/22 Unknown Active Medications Generic Name Dose Route Start Last Admin Trade Name Freq PRN Reason Stop Dose Admin Acetaminophen 650 mg 06/25/22 06:04 06/27/22 09:23 Acetaminophen 325 Mg Tab PO 07/25/22 06:03 650 mg Q4H PRN Administration pain/fever Cyanocobalamin 1,000 mcg 06/25/22 09:00 06/27/22 09:25 Cyanocobalamin (B-12) 500 Mcg Tablet PO 07/25/22 08:59 1,000 mcg DAILY STACY Administration Lactobacillus Acidophilus 2 cap 06/25/22 09:00 06/27/22 09:25 Advanced Probiotic 1250 Mg Capsule PO 07/25/22 08:59 2 cap DAILY STACY Administration Melatonin 9 mg 06/25/22 21:00 06/26/22 21:40 Melatonin 3 Mg Tab PO 07/25/22 20:59 9 mg HS STACY Administration Multivitamins 1 tab 06/25/22 09:00 06/27/22 09:25 Multivitamin Tab PO 07/25/22 08:59 1 tab DAILY STACY Administration Oxycodone HCl 5 mg 06/25/22 09:00 06/27/22 09:23 Oxycodone Hcl Ir 5 Mg Tab (Immediate Release) PO 07/09/22 08:59 5 mg BID STACY Administration Pantoprazole Sodium 40 mg 06/25/22 09:00 06/27/22 09:25 Pantoprazole 40 Mg Tab PO 07/25/22 08:59 40 mg QAM STACY Administration Prochlorperazine 10 mg 06/25/22 06:04 06/25/22 21:04 Prochlorperazine Maleate 10 Mg Tab PO 07/25/22 06:03 10 mg Q6H PRN Administration nausea and vomiting PG Care Time/CCT Total # of Minutes Spent Total Time Spent with Patient: Total time spent is greater than 50% in coordination of care (as documented) at patient's floor/unit and/or counseling patient: Coding Level of Care Code 46277 Subseq Hosp Care Lvl 2 Diagnoses Brain metastases C79.31 Fall W19.XXXA 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
[2022-06-27] MEDS ORDERED: Nursing to Pharmacy Communication SCH (15:00)
[2022-06-27] MEDS: SODIUM CHLORIDE 0.9% 500 ML IV SCH (15:11)
[2022-06-27] MEDS: MELATONIN 3 MG TAB PO SCH (20:30)
[2022-06-28] MEDS: SODIUM CHLORIDE 0.9% 500 ML IV SCH (00:09)
[2022-06-28 06:51] LABS: BUN Creatinine Ratio 25.3 (10-20); Calcium 9.9 mg/dl (8.5-10.1); Creatinine Clr Calc Pharmacy 85.9 ml/min; Est GFR (African American) 95.6 ml/min; Est GFR (Non-African American) 82.5 ml/min; Potassium 3.9 mmol/L (3.5-5.1)
[2022-06-28] MEDS: ACETAMINOPHEN 325 MG TAB PO PRN ×3 (07:02→20:33)
[2022-06-28] MEDS: MULTIVITAMIN TAB PO SCH (07:59)
[2022-06-28] MEDS: PANTOprazole 40 MG TAB PO SCH (07:59)
[2022-06-28] MEDS: oxyCODONE HCL IR 5 MG TAB (IMMEDIATE RELEASE) PO SCH ×2 (07:59→20:33)
[2022-06-28] MEDS: ADVANCED PROBIOTIC 1250 MG CAPSULE PO SCH (07:59)
[2022-06-28] MEDS: CYANOCOBALAMIN (B-12) 500 MCG TABLET PO SCH (07:59)
[2022-06-28] MEDS: DICLOFENAC SOD 1% GEL 100 GM TUBE EXT PRN ×2 (08:25→20:30)
--- NOTE | 2022-06-28 10:23 | Hospitalist Progress Note ---
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 Found to have h'agic brain metastases on head imaging. Last 3 days, his RN has noted decline- weaker. Walked w walker 2 days ago, yesterday could not balance himself standing. Son notes new cognitive gaps- asked him many times over 3-4 phone calls last two days " do you know I am in hospital?" Rectal cancer with brain, liver, and spine metastases Primary rectal cancer with known metastases to liver and spine, now brain Follows with [facility], Dr. Montero- I spoke w her 06/28 and she has had d/w patient's daughter re his poor prognosis before and consideration of hospice. Palliative care consulted as patient declining last three days- getting weaker Recently established with radiation oncology, Dr. Iverson, for palliative radiation to spine With new finding of brain mets this admission, radiation therapy to the brain for palliation planned 29 June Continue oxycodone 5 mg p.o. 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 At this time the patient is euvolemic clinically. 06/27 free water restriction of 1000 mL/day. Encourage other fluids. Discussed with RN in detail Started normal saline and after 1 L, will got 20 mg IV Lasix to excrete free water 06/27 Nephrology consulted today TSH 1.55 Fall no focal neuro weakness Fall precautions PT/OT evaluation reviewed[facility]illed nursing facility needed Patient does live alone at home and states "I will have to change that"(-this was on admission. ) He told me he lives with his (2 days ago ) GERD Continue home pantoprazole daily DVT prophylaxis: SCDs at this time due to brain MRI mentioning remote possibility of hemorrhages Diet: Regular CODE STATUS: DNR/DNI- patient was part of this decision per admitting team I spoke w son Saleem this morning 06/28 again. Palliative care explained to him. He was content and aware that Dr Montero is on board as well and that tomorrow radiation tx to T spine and brain for palliation is planned . His sister Lily is away to [place]. He asks that palliative care MD involve him and his sister in planning and assured they will. 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 Patient denies any significant pain " not great" when asked how he feels says sleeping well po intake poor, Physical Exam Physical Exam: Alert, tired looking conversant, oriented to month, place and person Has three hardbacks on floor by bed. 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 flexors 5/5, toe plnatra flexor R 5/5, left 4-5/5 Insight and judgment-seem adequate though initiative v low Results & Data Results & Data ([facility]) Vital Signs (Past 12 Hours) Vital Signs Temp Pulse Resp BP BP Pulse Ox O2 Del Method 06/28/22 07:20 Room Air 06/28/22 07:53 36.8 C 84 16 106/67 94 Room Air 06/28/22 01:25 Room Air 06/27/22 22:22 36.9 C 85 18 106/69 96 Room Air Laboratory Results Abnormal lab results 06/28/22 Range/Units 05:42 Sodium 128 L (136-145) mmol/L Chloride 95 L (98-107) mmol/L BUN/Creatinine Ratio 25.3 H (10-20) Glucose 104 H (70-99(Fasting)) mg/dl Medications Administered Home Medications Medication Instructions Recorded Confirmed Last Taken lactobacillus combination no.9 4 4,000 mmu cells PO DAILY 12/16/21 06/24/22 Unknown billion cell capsule (Adult 50 Plus Probiotic) docusate sodium 100 mg capsule 100 mg PO Q OTHER DAY PRN 06/14/22 06/24/22 Unknown (Stool Softener) Constipation oxycodone 5 mg capsule 5 mg PO .COMPLEX PRN Pain 06/14/22 06/24/22 Unknown cholecalciferol (vitamin D3) 25 25 mcg PO QAM 06/21/22 06/24/22 Unknown mcg (1,000 unit) tablet (Vitamin D3) mecobalamin (vitamin B12) 1,000 1,000 mcg PO DAILY #30 tabs 06/21/22 06/24/22 Unknown mcg chewable tablet melatonin 10 mg capsule 10 mg PO HS sleep #30 caps 06/21/22 06/24/22 Unknown multivitamin 1 tab PO DAILY #30 tabs 06/21/22 06/24/22 Unknown oxycodone 5 mg tablet 5 mg PO BID pain #60 tabs 06/21/22 06/24/22 Unknown pantoprazole 40 mg tablet,delayed 40 mg PO QAM #90 tabs 06/21/22 06/24/22 Unknown release prochlorperazine maleate 10 mg 10 mg PO Q6H PRN nausea and 06/21/22 06/24/22 Unknown tablet vomiting #30 tabs acetaminophen 500 mg capsule 1,000 mg PO Q6H PRN fever. pain 06/24/22 06/24/22 Unknown Active Medications Generic Name Dose Route Start Last Admin Trade Name Darnellq PRN Reason Stop Dose Admin Acetaminophen 650 mg 06/25/22 06:04 06/28/22 07:02 Acetaminophen 325 Mg Tab PO 07/25/22 06:03 650 mg Q4H PRN Administration pain/fever Cyanocobalamin 1,000 mcg 06/25/22 09:00 06/28/22 07:59 Cyanocobalamin (B-12) 500 Mcg Tablet PO 07/25/22 08:59 1,000 mcg DAILY STACY Administration Diclofenac Sodium 2 gm 06/28/22 07:09 06/28/22 08:25 Diclofenac Sod 1% Gel 100 Gm Tube EXT 10/05/22 07:08 2 gm Q6H PRN Administration low back pain Protocol Lactobacillus Acidophilus 2 cap 06/25/22 09:00 12/26/22 07:59 Advanced Probiotic 1250 Mg Capsule PO 07/25/22 08:59 2 cap DAILY STACY Administration Melatonin 9 mg 06/25/22 21:00 06/27/22 20:30 Melatonin 3 Mg Tab PO 07/25/22 20:59 9 mg HS STACY Administration Multivitamins 1 tab 06/25/22 09:00 06/28/22 07:59 Multivitamin Tab PO 07/25/22 08:59 1 tab DAILY STACY Administration Oxycodone HCl 5 mg 06/25/22 06:14 06/28/22 09:14 Oxycodone Hcl Ir 5 Mg Tab (Immediate Release) PO 07/09/22 06:13 5 mg Q6H PRN Administration Pain Oxycodone HCl 5 mg 06/25/22 09:00 06/28/22 07:59 Oxycodone Hcl Ir 5 Mg Tab (Immediate Release) PO 07/09/22 08:59 5 mg BID STACY Administration Pantoprazole Sodium 40 mg 06/25/22 09:00 06/28/22 07:59 Pantoprazole 40 Mg Tab PO 07/25/22 08:59 40 mg QAM STACY Administration Prochlorperazine 10 mg 06/25/22 06:04 06/25/22 21:04 Prochlorperazine Maleate 10 Mg Tab PO 07/25/22 06:03 10 mg Q6H PRN Administration nausea and vomiting PG Care Time/CCT Total # of Minutes Spent Total Time Spent with Patient: Total time spent is greater than 50% in coordination of care (as documented) at patient's floor/unit and/or counseling patient: Coding Level of Care Code 27109 Subseq Hosp Care Lvl 3 Diagnoses Brain metastases C79.31 Fall W19.XXXA 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
--- NOTE | 2022-06-28 11:16 | Nephrology Consultation ---
Date of Consultation June 28, 2022 Assessment & Plan (1) Hyponatremia: * Hypoosmolar hyponatremia. Patient is clinically euvolemic to volume contracted. Uosm should be < 100. 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 Birmingham is an 86 year old white male who is seen at the request of the hospitalist service for evaluation of hyponatremia. Medical records in the EMR were reviewed and are summarized as follows: Mr. Birmingham had HTN previously managed w/ thiazide diuretic, obesity, chronic venous stasis, OA of knees, TANIA and COPD. In 12/23 he began to lose weight unintentionally. 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 He completed 6 cycles of carboplatin/etoposide and atezolizumab was added at the 5th cycle. Unfortunately recent PET scan revealed progression despite combined chemo/immunotherapy. 06/25/22 Mr. Birmingham suffered a fall at home and was brought to the [facility] for evaluation. Brain MRI revealed multiple hemorrhagic lesions c/w metastatic disease. Serum sodium was 129 mmol/L at the time of admission and has remained unchanged despite 1L/day oral fluid restriction and one dose IV furosemide. Uosm has been inappropriately elevated at 240 mOsm/kg c/w SIADH. Allergies Allergy/AdvReac Type Severity Reaction Status Date / Time No Known Allergies Allergy Verified 06/21/22 09:49 Home Medications Medication Instructions Recorded Confirmed Type lactobacillus combination no.9 4 4,000 mmu cells PO DAILY 12/16/21 06/24/22 History billion cell capsule (Adult 50 Plus Probiotic) docusate sodium 100 mg capsule 100 mg PO Q OTHER DAY PRN 06/14/22 06/24/22 History (Stool Softener) Constipation oxycodone 5 mg capsule 5 mg PO .COMPLEX PRN Pain 06/14/22 06/24/22 History cholecalciferol (vitamin D3) 25 25 mcg PO QAM 06/21/22 06/24/22 History mcg (1,000 unit) tablet (Vitamin D3) mecobalamin (vitamin B12) 1,000 1,000 mcg PO DAILY #30 tabs 06/21/22 06/24/22 Rx mcg chewable tablet melatonin 10 mg capsule 10 mg PO HS sleep #30 caps 06/21/22 06/24/22 Rx multivitamin 1 tab PO DAILY #30 tabs 06/21/22 06/24/22 Rx oxycodone 5 mg tablet 5 mg PO BID pain #60 tabs 06/21/22 06/24/22 Rx pantoprazole 40 mg tablet,delayed 40 mg PO QAM #90 tabs 06/21/22 06/24/22 Rx release prochlorperazine maleate 10 mg 10 mg PO Q6H PRN nausea and 06/21/22 06/24/22 Rx tablet vomiting #30 tabs acetaminophen 500 mg capsule 1,000 mg PO Q6H PRN fever. pain 06/24/22 06/24/22 History Patient History Medical History Chronic gastroesophageal reflux disease Degenerative disc disease Encounter for pre-operative examination Encounter for pre-operative examination Obesity Periorbital hematoma of left eye age 11 with surgical removal. Severe obstructive sleep apnea CPAP Venous insufficiency bilateral ankle edema (reason for HCTZ) Surgical History History of cataract surgery left History of colonoscopy History of eye surgery S/P epidural steroid injection Family History Father Cancer Prostate cancer Mother Myocardial infarction Brother Prostate cancer Other Coronary heart disease No family history of adverse response to anesthesia Denies family history of Ovarian cancer Breast cancer Colorectal cancer Social History Smoking Status: Former smoker Tobacco Type: Cigarettes Second Hand Exposure: No; Hx Alcohol Use: Yes Alcohol type: beer and hard liquor Alcohol Intake Frequency Comment: socially Hx Substance Use: No Preferred Language: Vincentian Communication Ability: Effective Customer Operations Manager Required: No Beliefs That Will Affect Care: None marital status: Current Living Situation: Skilled Nursing 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[employer]; 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 Feels Safe at Home: No Is there a partner from a previous relationship who is making you feel unsafe now?: No Childhood Exposure to Second-Hand Smoke: Yes during the past year weight has: decreased > 10 lbs Dental Care, Regularly: Yes Physical Activity Frequency: Daily Seatbelt Use: always Sunscreen Use: Yes Assistive Devices: CPAP Review of Systems Constitutional: no fever Eyes: no problem reported Ear, Nose, Mouth, Throat: no problem reported Respiratory: no cough and no dyspnea Cardiovascular: no chest pain Gastrointestinal: no abdominal pain, no nausea, no vomiting and no diarrhea/loose stools Genitourinary: no urinary hesitancy Neurologic: + headache(s); no confusion Physical Exam Constitutional: not in distress Eyes: PERRL, conjunctivae normal, anicteric sclerae ENMT: Mouth: + dry oral mucous membranes Neck: trachea midline, no thyromegaly Respiratory: normal respiratory effort, lungs clear to auscultation Cardiovascular: RRR, no murmur, no edema Gastrointestinal (Abdomen): normal bowel sounds, soft, nontender, no hepatosp lenomegaly Skin: no rashes, warm and dry Neurologic: not confused Speech / Cognition: normal cognition Results & Data ([facility]) Vital Signs (Past 12 Hours) Vital Signs Temp Pulse Resp BP Pulse Ox O2 Del Method 06/28/22 07:20 Room Air 06/28/22 07:53 36.8 C 84 16 106/67 94 Room Air 06/28/22 01:25 Room Air Laboratory Results Laboratory Tests 06/25/22 06/25/22 06/26/22 03:31 16:20 08:10 WBC 4.85 Hgb 12.5 L Hct 36.3 L Plt Count 159 Sodium Potassium Chloride Carbon Dioxide BUN Creatinine Glucose Calcium TSH Cortisol AM Sample Urine Color Dark Yellow Urine Appearance Clear Urine pH 5.5 Ur Specific [place] 1.020 Urine Protein Negative Urine Glucose (UA) Negative Urine Blood Negative Urine RBC (Auto) 0-4 Urine Osmolality 240 L 06/26/22 06/26/22 06/28/22 08:10 08:10 05:42 WBC Hgb Hct Plt Count Sodium 128 L Potassium 3.9 Chloride 95 L Carbon Dioxide 28 BUN 19 Creatinine 0.75 Glucose 104 H Calcium 9.9 TSH 1.556 Cortisol AM Sample 18.56 Urine Color Urine Appearance Urine pH Ur Specific [place] Urine Protein Urine Glucose (UA) Urine Blood Urine RBC (Auto) Urine Osmolality PG Care Time/CCT Total # of Minutes Spent Total Time Spent with Patient: Total time spent is greater than 50% in coordination of care (as documented) at patient's floor/unit and/or counseling patient: Coding Level of Care Code 73048 Inpt Consult Level 5 Diagnoses Hyponatremia E87.1 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
[2022-06-28] MEDS: SODIUM CHLORIDE 1 GM TABLET PO SCH ×2 (12:07→20:31)
--- NOTE | 2022-06-28 12:56 | Palliative Care Consultation ---
Date of Consultation June 28, 2022 Assessment & Plan (1) Back pain: With bone metastases. Currently receiving palliative radiation. Given bony and brain metastases, will add decadron. Continue prn oxycodone. He would likely benefit from a long acting opioid but has only had 15mg of oxycodone in last 24 hours. Will monitor prn use with steroid and adjust accordingly. Added senna for constipation on opioids with decreased mobility. (2) Palliative care encounter: I spoke with Mr. Birmingham and with his son, Saleem, on speaker phone. They have a very good understanding of his illness. They have an appointment for second opinion at [facility] next week per Dr. Montero's referral. Mr. Birmingham tells me that he has never really thought about whether there were any limits to the treatment he would be willing to undertake. He has tolerated chemotherapy well up to this point per his son, who feels that he has not really encountered treatment that was intolerable to this point and therefore, doesn't have a reference point for this. Mr. Birmingham does state that he would not want to have treatment if it were going to make him feel ill and provide only a small amount of additional time. He has made arrangements for his family and has a good relationship with his family members. They are very supportive and respect his wishes. He is tearful as he talks about his life review and the things that he is most proud of. He realizes that he is going to from the cancer and denies fears or worries about this. They would like to discuss treatment options Dr. Montero further, with respect to the impact on his quality of life. Palliative care will followup after they have an opportunity to talk with Dr. Montero to further discuss goals of care. [id number] History of Present Illness Reason for Consultation: goals of care Requesting Physician: Dr. 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 He had been receiving palliative radiation for spinal mets prior to admission. He had a fall at home and presented to emergency room. Workup showed multiple hemorrhagic brain lesions associated with vasogenic edema, consistent with metastases. He is followed by Dr. Montero for his oncology care and was seen by Dr. Hdz last week for possible whole brain palliative radiation therapy. Allergies Allergy/AdvReac Type Severity Reaction Status Date / Time No Known Allergies Allergy Verified 06/21/22 09:49 Home Medications Medication Instructions Recorded Confirmed Type lactobacillus combination no.9 4 4,000 mmu cells PO DAILY 12/16/21 06/24/22 History billion cell capsule (Adult 50 Plus Probiotic) docusate sodium 100 mg capsule 100 mg PO Q OTHER DAY PRN 06/14/22 06/24/22 History (Stool Softener) Constipation oxycodone 5 mg capsule 5 mg PO .COMPLEX PRN Pain 06/14/22 06/24/22 History cholecalciferol (vitamin D3) 25 25 mcg PO QAM 06/21/22 06/24/22 History mcg (1,000 unit) tablet (Vitamin D3) mecobalamin (vitamin B12) 1,000 1,000 mcg PO DAILY #30 tabs 06/21/22 06/24/22 Rx mcg chewable tablet melatonin 10 mg capsule 10 mg PO HS sleep #30 caps 06/21/22 06/24/22 Rx multivitamin 1 tab PO DAILY #30 tabs 06/21/22 06/24/22 Rx oxycodone 5 mg tablet 5 mg PO BID pain #60 tabs 06/21/22 06/24/22 Rx pantoprazole 40 mg tablet,delayed 40 mg PO QAM #90 tabs 06/21/22 06/24/22 Rx release prochlorperazine maleate 10 mg 10 mg PO Q6H PRN nausea and 06/21/22 06/24/22 Rx tablet vomiting #30 tabs acetaminophen 500 mg capsule 1,000 mg PO Q6H PRN fever. pain 06/24/22 06/24/22 History Patient History Medical History Chronic gastroesophageal reflux disease Degenerative disc disease Encounter for pre-operative examination Encounter for pre-operative examination Obesity Periorbital hematoma of left eye age 11 with surgical removal. Severe obstructive sleep apnea CPAP Venous insufficiency bilateral ankle edema (reason for HCTZ) Surgical History History of cataract surgery left History of colonoscopy History of eye surgery S/P epidural steroid injection Family History Father Cancer Prostate cancer Mother Myocardial infarction Brother Prostate cancer Other Coronary heart disease No family history of adverse response to anesthesia Denies family history of Ovarian cancer Breast cancer Colorectal cancer Social History Smoking Status: Former smoker Tobacco Type: Cigarettes Second Hand Exposure: No; Hx Alcohol Use: Yes Alcohol type: beer and hard liquor Alcohol Intake Frequency Comment: socially Hx Substance Use: No Preferred Language: German Communication Ability: Effective Parts Room Clerk Required: No Beliefs That Will Affect Care: None marital status: Current Living Situation: Jail 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[employer]; 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 Feels Safe at Home: No Is there a partner from a previous relationship who is making you feel unsafe now?: No Childhood Exposure to Second-Hand Smoke: Yes during the past year weight has: decreased > 10 lbs Dental Care, Regularly: Yes Physical Activity Frequency: Daily Seatbelt Use: always Sunscreen Use: Yes Assistive Devices: CPAP Review of Systems Review of Systems: ESAS Pain 2/3 Dyspnea 0/3 Nausea 0/3 Anxiety 0/3 Drowsiness 0/3 Physical Exam Constitutional: no acute distress ENMT: Mouth: oral mucous membranes not dry Respiratory: normal respiratory effort; no labored breathing Gastrointestinal (Abdomen): Inspection/Auscultation: abdomen normal to inspection Musculoskeletal: Extremities: extremities normal to inspection Skin: warm and dry Neurologic: Speech / Cognition: normal cognition Results & Data ([facility]) Vital Signs (Past 12 Hours) Vital Signs Temp Pulse Resp BP Pulse Ox O2 Del Method 06/28/22 07:20 Room Air 06/28/22 07:53 98.2 F 84 16 106/67 94 Room Air 06/28/22 01:25 Room Air PG Care Time/CCT Total # of Minutes Spent Total Time Spent: 72 Total Time Spent with Patient: Total time spent is greater than 50% in coordination of care (as documented) at patient's floor/unit and/or counseling patient:Symptom management, goals of care, patient and family education and support Coding Level of Care Code 19170 Initial Inpt Care Lvl 3 Diagnoses Back pain M54.9 Palliative care encounter Z51.5
[2022-06-28] MEDS ORDERED: oxyCODONE HCL IR 5 MG TAB (IMMEDIATE RELEASE) PO PRN (14:09)
[2022-06-28] MEDS: dexAMETHasone 4 MG in SYRINGE 0 ML IV SCH (20:30)
[2022-06-28] MEDS: MELATONIN 3 MG TAB PO SCH (20:33)
[2022-06-29] MEDS: MULTIVITAMIN TAB PO SCH (07:40)
[2022-06-29] MEDS: CYANOCOBALAMIN (B-12) 500 MCG TABLET PO SCH (07:40)
[2022-06-29] MEDS: PANTOprazole 40 MG TAB PO SCH (07:40)
[2022-06-29] MEDS: dexAMETHasone 4 MG in SYRINGE 0 ML IV SCH ×2 (07:41→20:50)
[2022-06-29] MEDS: SODIUM CHLORIDE 1 GM TABLET PO SCH ×3 (07:41→20:50)
[2022-06-29] MEDS: SENNA 8.6 MG TAB PO SCH (07:41)
[2022-06-29] MEDS: ADVANCED PROBIOTIC 1250 MG CAPSULE PO SCH (07:41)
[2022-06-29] MEDS: oxyCODONE HCL IR 5 MG TAB (IMMEDIATE RELEASE) PO SCH ×2 (07:44→20:50)
[2022-06-29 08:22] LABS: BUN Creatinine Ratio 27.7 (10-20); Creatinine Clr Calc Pharmacy 77.6 ml/min; Est GFR (African American) 91.7 ml/min; Est GFR (Non-African American) 79.1 ml/min; Potassium 4.7 mmol/L (3.5-5.1)
--- NOTE | 2022-06-29 09:07 | Nephrology Progress Note ---
Date of Service June 29, 2022 Assessment & Plan (1) Hyponatremia: Plan: * Hypoosmolar hyponatremia. Patient is clinically euvolemic to volume contracted. Uosm should be < 100. 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 on the basis of BELT FIXER metastasis w/ vasogenic edema * Serum sodium stable at 129 mmol/L * Continue 1L per day oral free water restriction * Increase NaCl to 2g po TID * Start furosemide 20 mg po BID to lower Uosm and promote free water excretion * Monitor PRP, Uosm (2) Rectal cancer metastasized to bone: Plan: * 06/24 Oncology note reviewed: progression despite chemo & immunotherapy (3) Brain metastases: Plan: * 06/28/22 Palliative Care recommendations reviewed: Patient and family hope for second opinion at [facility] next week Admission and Anticipated Discharge Date Admission Date: June 25, 2022 Subjective Preparing for radiation therapy. Mild PUGA. Tolerating NaCl without GI upset Review of Systems Constitutional: no fever Eyes: no problem reported Ear, Nose, Mouth, Throat: no problem reported Respiratory: no cough and no dyspnea Cardiovascular: no chest pain Gastrointestinal: no abdominal pain, no nausea, no vomiting and no diarrhea/loose stools Genitourinary: no urinary hesitancy Neurologic: + headache(s); no confusion Physical Exam Constitutional: not in distress Eyes: PERRL, conjunctivae normal, anicteric sclerae ENMT: Mouth: + dry oral mucous membranes Neck: trachea midline, no thyromegaly Respiratory: normal respiratory effort, lungs clear to auscultation Cardiovascular: RRR, no murmur, no edema Gastrointestinal (Abdomen): normal bowel sounds, soft, nontender, no hepatosplenomegaly Skin: no rashes, warm and dry Neurologic: not confused Speech / Cognition: normal cognition Results & Data ([facility]) Vital Signs (Past 12 Hours) Vital Signs Temp Pulse Resp BP Pulse Ox O2 Del Method 06/29/22 07:50 36.5 C 85 16 138/71 93 Room Air Laboratory Results Laboratory Tests 06/26/22 06/26/22 06/26/22 08:10 08:10 08:10 Sodium Potassium Chloride Carbon Dioxide BUN Creatinine Glucose Total Bilirubin 4.9 H AST 72 H ALT 47 Alkaline Phosphatase 801 H Albumin 3.4 TSH 1.556 Cortisol AM Sample 18.56 Urine Osmolality 06/29/22 06/29/22 07:02 Unknown Sodium 129 L Potassium 4.7 D Chloride 96 L Carbon Dioxide 27 BUN 23 Creatinine 0.83 Glucose 119 H Total Bilirubin AST ALT Alkaline Phosphatase Albumin TSH Cortisol AM Sample Urine Osmolality 418 L PG Care Time/CCT Total # of Minutes Spent Total Time Spent with Patient: Total time spent is greater than 50% in coordination of care (as documented) at patient's floor/unit and/or counseling patient: Coding Level of Care Code 53802 Subseq Hosp Care Lvl 3 Diagnoses Hyponatremia E87.1 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
[2022-06-29] MEDS: FUROSEMIDE 20 MG TAB PO SCH ×2 (09:57→16:30)
[2022-06-29] MEDS: MELATONIN 3 MG TAB PO SCH (20:50)
--- NOTE | 2022-06-29 21:12 | Hospitalist Progress Note ---
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 Found to have hemorrhagic brain metastases on head imaging. Rectal cancer with brain, liver, and spine metastases Primary rectal cancer with known metastases to liver and spine, now brain [facility] Dr. Montero- I spoke w her 06/28 and she has had d/w patient's daughter re his poor prognosis before and consideration of hospice. Palliative care consulted as patient declining last three days- getting weaker Recently established with radiation oncology, Dr. Iverson, for palliative radiation to spine which has commenced With new finding of brain mets this admission, radiation therapy to the brain for palliation planned to start after spine Continue oxycodone 5 mg p.o. twice daily scheduled and 5 mg every 6 hours as needed for pain related to spinal mets Continue home prochlorperazine as needed for nausea/vomiting Palliative care consulted- appreciate goals of care discussion with patient and family--> plan to d/w Dr. 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 At this time the patient is euvolemic clinically. -continue free water restriction of 1000 mL/day Started normal saline and after 1 L, then received 20 mg IV Lasix to excrete free water 06/27 Nephrology consulted -appreciate-started NaCl tabs and po lasix bid TSH 1.55 follow BMP (6) GERD (gastroesophageal reflux disease): Plan: Continue home pantoprazole daily Plan DVT prophylaxis: SCDs at this time due to brain MRI mentioning remote possibility of hemorrhages CODE STATUS: DNR/DNI- patient was part of this decision per admitting team Dispo-awaiting SNF placement Admission and Anticipated Discharge Date Admission Date: June 25, 2022 Subjective Pt feels generally weak. No pain. Is eating. Review of Systems Review of Systems: All systems reviewed & are unremarkable except as noted in HPI & below Physical Exam Constitutional: WD/WN, vitals as above Neck: trachea midline, no thyromegaly Respiratory: normal respiratory effort, lungs clear to auscultation Cardiovascular: RRR, no murmur, no edema Chest (Breasts): Chest: normal inspection of chest Gastrointestinal (Abdomen): normal bowel sounds, soft, nontender, no hepatosplenomegaly Musculoskeletal: Extremities: extremities normal to inspection; no cyanosis and no clubbing Skin: no rashes, warm and dry Neurologic: moves all extremities and awake Lymphatic: no lymphedema Results & Data Results & Data ([facility]) Vital Signs (Past 12 Hours) Vital Signs Temp Pulse Resp BP Pulse Ox O2 Del Method 06/29/22 14:48 36.5 C 86 16 119/69 95 Room Air PG Care Time/CCT Total # of Minutes Spent Total Time Spent with Patient: Total time spent is greater than 50% in coordination of care (as documented) at patient's floor/unit and/or counseling patient: Coding Level of Care Code 81961 Subseq Hosp Care Lvl 2 Diagnoses Brain metastases C79.31 Fall W19.XXXA 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
[2022-06-29] MEDS: PROCHLORPERAZINE MALEATE 10 MG TAB PO PRN (22:55)
--- NOTE | 2022-06-30 08:47 | Nephrology Progress Note ---
Date of Service June 30, 2022 Assessment & Plan (1) Hyponatremia: Plan: * Hypoosmolar hyponatremia. Patient is clinically euvolemic to volume contracted. Uosm should be < 100. 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 Birminghma was evaluated in his hospital room this morning. He was preparing for radiation therapy. Mild PUGA. Tolerating NaCl without GI upset Review of Systems Constitutional: no fever Eyes: no problem reported Ear, Nose, Mouth, Throat: no problem reported Respiratory: no cough and no dyspnea Cardiovascular: no chest pain Gastrointestinal: no abdominal pain, no nausea, no vomiting and no diarrhea/loose stools Genitourinary: no urinary hesitancy Neurologic: + headache(s); no confusion Physical Exam Constitutional: not in distress Eyes: PERRL, conjunctivae normal, anicteric sclerae ENMT: Mouth: + dry oral mucous membranes Neck: trachea midline, no thyromegaly Respiratory: normal respiratory effort, lungs clear to auscultation Cardiovascular: RRR, no murmur, no edema Gastrointestinal (Abdomen): normal bowel sounds, soft, nontender, no hepatosplenomegaly Skin: no rashes, warm and dry Neurologic: not confused Speech / Cognition: normal cognition Results & Data ([facility]) Vital Signs (Past 12 Hours) Vital Signs Temp Pulse Resp BP Pulse Ox O2 Del Method 06/30/22 07:08 36.5 C 75 18 122/72 95 Room Air 06/29/22 21:20 Room Air 06/30/22 00:04 36.9 C 89 16 103/54 L 94 Room Air 06/29/22 23:20 36.9 C 89 18 88/51 L 93 Room Air Laboratory Results Laboratory Tests 06/30/22 06/30/22 03:00 07:59 Sodium 130 L Potassium 4.5 Chloride 97 L Carbon Dioxide 26 Urine Osmolality 500 PG Care Time/CCT Total # of Minutes Spent Total Time Spent with Patient: Total time spent is greater than 50% in coordination of care (as documented) at patient's floor/unit and/or counseling patient: Coding Level of Care Code 80933 Subseq Hosp Care Lvl 3 Diagnoses Hyponatremia E87.1 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
[2022-06-30] MEDS: SENNA 8.6 MG TAB PO SCH (08:54)
[2022-06-30] MEDS: oxyCODONE HCL IR 5 MG TAB (IMMEDIATE RELEASE) PO SCH ×2 (08:54→20:05)
[2022-06-30] MEDS: PANTOprazole 40 MG TAB PO SCH (08:54)
[2022-06-30] MEDS: MULTIVITAMIN TAB PO SCH (08:54)
[2022-06-30] MEDS: dexAMETHasone 4 MG in SYRINGE 0 ML IV SCH ×2 (08:54→20:06)
[2022-06-30] MEDS: ADVANCED PROBIOTIC 1250 MG CAPSULE PO SCH (08:55)
[2022-06-30] MEDS: CYANOCOBALAMIN (B-12) 500 MCG TABLET PO SCH (08:55)
[2022-06-30] MEDS: SODIUM CHLORIDE 1 GM TABLET PO SCH ×3 (08:55→20:06)
[2022-06-30 09:16] LABS: Albumin Level 3.2 gm/dl (3.4-5.0); BUN Creatinine Ratio 32.4 (10-20); Bilirubin Direct 2.3 mg/dl (0-0.2); Bilirubin,Total 4.2 mg/dl (0.2-1.0); Calcium 10.3 mg/dl (8.5-10.1); Creatinine Clr Calc Pharmacy 87.1 ml/min; Est GFR (African American) 96.1 ml/min; Est GFR (Non-African American) 82.9 ml/min; Potassium 4.5 mmol/L (3.5-5.1)
--- NOTE | 2022-06-30 09:32 | Oncology Consultation ---
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 Restaging imaging obtained about a month ago revealed a disease progression with new lytic T1 lesion, adrenal lesions for which I recommended switching to second line treatment with topotecan. He presented to the ER a few days ago and was found to have new brain metastasis Last week, I had an extensive discussion with patient and his family reviewing aggressiveness of small cell neuroendocrine carcinoma and his overall poor prognosis. Patient has done well for several months after being initially diagnosed in Nov, 2021. At that time, patient and his kids decided that he would like to receive second line treatment with topotecan which was scheduled to start after he completed T1 radiation treatment. During my evaluation of patient today, he indicates that he is leaning towards discontinuing systemic therapy and focusing on quality of life/switching to supportive care but indicated that he would like to discuss it with his kids before making a final decision. Supportive care is very reasonable given his advanced age,declining performance status and brain metastasis. I also had a discussion with his son (Saleem) over the phone today. Explained to him that if patient decides to discontinue systemic therapy, would recommend hospice. If he however decides to continue with treatments, I would reassess him after he completes radiation treatment to see if performance status has improved prior to restarting systemic therapy. Thank you for this consult. Oncology will follow peripherally while patient is in hospital. Please feel free to call if they have any further questions History of Present Illness Reason for Consultation: Metastatic cancer Attending Physician: Jessica Woods MD History of Present Illness Mr. 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 Earlier this month, he had also complained of lower extremity weakness and gait changes for which brain MRI was supposed to be performed on 06/29/2022 to evaluate for brain metastases. He however presented to the ER [facility] after a fall . Brain MRI obtained on 06/25/2022 revealed Multiple supratentorial lesions which are new since MRI of November 26, 2021. These are consistent with metastases, the majority of which are hemorrhagic. Mild associated vasogenic edema. No significant mass effect. He complains of fatigue, lower extremity weakness, poor appetite. Allergies Allergy/AdvReac Type Severity Reaction Status Date / Time No Known Allergies Allergy Verified 06/21/22 09:49 Home Medications Medication Instructions Recorded Confirmed Type lactobacillus combination no.9 4 4,000 mmu cells PO DAILY 12/16/21 06/24/22 History billion cell capsule (Adult 50 Plus Probiotic) docusate sodium 100 mg capsule 100 mg PO Q OTHER DAY PRN 06/14/22 06/24/22 History (Stool Softener) Constipation oxycodone 5 mg capsule 5 mg PO .COMPLEX PRN Pain 06/14/22 06/24/22 History cholecalciferol (vitamin D3) 25 25 mcg PO QAM 06/21/22 06/24/22 History mcg (1,000 unit) tablet (Vitamin D3) mecobalamin (vitamin B12) 1,000 1,000 mcg PO DAILY #30 tabs 06/21/22 06/24/22 Rx mcg chewable tablet melatonin 10 mg capsule 10 mg PO HS sleep #30 caps 06/21/22 06/24/22 Rx multivitamin 1 tab PO DAILY #30 tabs 06/21/22 06/24/22 Rx oxycodone 5 mg tablet 5 mg PO BID pain #60 tabs 06/21/22 06/24/22 Rx pantoprazole 40 mg tablet,delayed 40 mg PO QAM #90 tabs 06/21/22 06/24/22 Rx release prochlorperazine maleate 10 mg 10 mg PO Q6H PRN nausea and 06/21/22 06/24/22 Rx tablet vomiting #30 tabs acetaminophen 500 mg capsule 1,000 mg PO Q6H PRN fever. pain 06/24/22 06/24/22 History Patient History Medical History (Updated 06/30/22 @ 16:44 by Tg Montero MD) Chronic gastroesophageal reflux disease Degenerative disc disease Encounter for pre-operative examination Encounter for pre-operative examination GERD (gastroesophageal reflux disease) Obesity Periorbital hematoma of left eye age 11 with surgical removal. Severe obstructive sleep apnea CPAP Venous insufficiency bilateral ankle edema (reason for HCTZ) Surgical History History of cataract surgery left History of colonoscopy History of eye surgery S/P epidural steroid injection Family History Father Cancer Prostate cancer Mother Myocardial infarction Brother Prostate cancer Other Coronary heart disease No family history of adverse response to anesthesia Denies family history of Ovarian cancer Breast cancer Colorectal cancer Social History Smoking Status: Former smoker Tobacco Type: Cigarettes Second Hand Exposure: No; Hx Alcohol Use: Yes Alcohol type: beer and hard liquor Alcohol Intake Frequency Comment: socially Hx Substance Use: No Preferred Language: Kyrgyz Communication Ability: Effective Digital Marketing Analyst Required: No Beliefs That Will Affect Care: None marital status: Current Living Situation: Long Term 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[employer]; 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 Other Information That Helps Us Care for You: No Feels Safe at Home: No Is there a partner from a previous relationship who is making you feel unsafe now?: No Childhood Exposure to Second-Hand Smoke: Yes during the past year weight has: decreased > 10 lbs Dental Care, Regularly: Yes Physical Activity Frequency: Daily Seatbelt Use: always Sunscreen Use: Yes Assistive Devices: CPAP Review of Systems Review of Systems: All systems reviewed & are unremarkable except as noted in HPI & below Results & Data ([facility]) Vital Signs (Past 12 Hours) Vital Signs Temp Pulse Resp BP Pulse Ox O2 Del Method 06/30/22 07:08 36.5 C 75 18 122/72 95 Room Air 06/30/22 00:04 36.9 C 89 16 103/54 L 94 Room Air 06/29/22 23:20 36.9 C 89 18 88/51 L 93 Room Air
[2022-06-30] MEDS: FUROSEMIDE 20 MG TAB PO SCH ×2 (11:18→17:37)
--- NOTE | 2022-06-30 15:02 | Hospitalist Progress Note ---
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 Found to have hemorrhagic brain metastases on head imaging. Rectal cancer with brain, liver, and spine metastases Primary rectal cancer with known metastases to liver and spine, now brain [facility], Dr. Montero- I spoke w her 06/28 and she has had d/w patient's daughter re his poor prognosis before and consideration of hospice. -Palliative care consulted as patient declining last three days- getting weaker Recently established with radiation oncology, Dr. Iverson, for palliative radiation to spine which has commenced With new finding of brain mets this admission, radiation therapy to the brain for palliation planned to start after spine Continue oxycodone 5 mg p.o. twice daily scheduled and 5 mg every 6 hours as needed for pain related to spinal mets Continue home prochlorperazine as needed for nausea/vomiting Palliative care consulted- appreciate goals of care discussion with patient and family--> plan to d/w Dr. Montero as well s second opinion at [facility]. I discussed his care with Dr. 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 At this time the patient is euvolemic clinically. -continue free water restriction of 1000 mL/day -continue NaCl tabs and po lasix bid APpreciate Nephro consult TSH 1.55 follow BMP (6) GERD (gastroesophageal reflux disease): Plan: Continue home pantoprazole daily Plan DVT prophylaxis: SCDs at this time due to brain MRI mentioning remote possibility of hemorrhages CODE STATUS: DNR/DNI- patient was part of this decision per admitting team Dispo-awaiting SNF placement Admission and Anticipated Discharge Date Admission Date: June 25, 2022 Subjective Pt is OOB to chair but says his legs just give out when he tries to stand. Is going to try to sit on toilet to move his bowels. No pain in back. Review of Systems Review of Systems: All systems reviewed & are unremarkable except as noted in HPI & below Physical Exam Constitutional: WD/WN, vitals as above Eyes: + anicteric sclerae Neck: trachea midline, no thyromegaly Respiratory: normal respiratory effort, lungs clear to auscultation Cardiovascular: RRR, no murmur, no edema Chest (Breasts): Chest: normal inspection of chest Gastrointestinal (Abdomen): normal bowel sounds, soft, nontender, no hepatosplenomegaly Musculoskeletal: Extremities: extremities normal to inspection; no cyanosis and no clubbing Skin: no rashes, warm and dry Neurologic: moves all extremities and awake Lymphatic: no lymphedema Results & Data Results & Data ([facility]) Vital Signs (Past 12 Hours) Vital Signs Temp Pulse Resp BP Pulse Ox O2 Del Method 06/30/22 13:28 Room Air 06/30/22 07:08 36.5 C 75 18 122/72 95 Room Air Laboratory Results 06/30/22 06/30/22 Range/Units 07:59 03:00 Sodium 130 L (136-145) mmol/L Potassium 4.5 (3.5-5.1) mmol/L Chloride 97 L (98-107) mmol/L Carbon Dioxide 26 (21-32) mmol/L Anion Gap 7 (3-11) BUN 24 H (6-23) mg/dl Creatinine 0.74 (0.6-1.4) mg/dl Est Cr Clr Drug Dosing 87.1 ml/min Est GFR ( Amer) 96.1 ml/min Est GFR (Non-Af Amer) 82.9 ml/min BUN/Creatinine Ratio 32.4 H (10-20) Glucose 114 H (70-99(Fasting)) mg/dl Calcium 10.3 H (8.5-10.1) mg/dl Total Bilirubin 4.2 H (0.2-1.0) mg/dl Direct Bilirubin 2.3 H (0-0.2) mg/dl AST 118 H (13-39) U/L ALT 70 H (7-52) U/L Alkaline Phosphatase 993 H (34-104) U/L Total Protein 6.0 (6.0-8.3) gm/dl Albumin 3.2 L (3.4-5.0) gm/dl Urine Osmolality 500 (500-800) mOsm/kg PG Care Time/CCT Total # of Minutes Spent Total Time Spent with Patient: Total time spent is greater than 50% in coordination of care (as documented) at patient's floor/unit and/or counseling patient: Coding Level of Care Code 63695 Subseq Hosp Care Lvl 2 Diagnoses Brain metastases C79.31 Fall W19.XXXA 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
[2022-06-30] MEDS: MELATONIN 3 MG TAB PO SCH (20:06)
[2022-07-01] MEDS: CYANOCOBALAMIN (B-12) 500 MCG TABLET PO SCH (07:40)
[2022-07-01] MEDS: dexAMETHasone 4 MG in SYRINGE 0 ML IV SCH ×2 (07:40→20:03)
[2022-07-01] MEDS: PANTOprazole 40 MG TAB PO SCH (07:40)
[2022-07-01] MEDS: SODIUM CHLORIDE 1 GM TABLET PO SCH ×3 (07:40→20:03)
[2022-07-01] MEDS: SENNA 8.6 MG TAB PO SCH (07:41)
[2022-07-01] MEDS: ADVANCED PROBIOTIC 1250 MG CAPSULE PO SCH (07:41)
[2022-07-01] MEDS: oxyCODONE HCL IR 5 MG TAB (IMMEDIATE RELEASE) PO SCH ×2 (07:46→20:03)
[2022-07-01] MEDS: FUROSEMIDE 20 MG TAB PO SCH ×2 (07:46→16:04)
[2022-07-01 08:12] LABS: Creatinine Clr Calc Pharmacy 92.1 ml/min; Est GFR (African American) 98.3 ml/min; Est GFR (Non-African American) 84.9 ml/min; Potassium 4.1 mmol/L (3.5-5.1)
--- NOTE | 2022-07-01 08:55 | Nephrology Progress Note ---
Date of Service July 01, 2022 Assessment & Plan (1) Hyponatremia: Plan: * Hypoosmolar hyponatremia. Patient is clinically euvolemic to volume contracted. Uosm should be < 100. 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 Birmingham was preparing for radiation therapy this am. Mild PUGA. Tolerating NaCl without GI upset Review of Systems Constitutional: no fever Eyes: no problem reported Ear, Nose, Mouth, Throat: no problem reported Respiratory: no cough and no dyspnea Cardiovascular: no chest pain Gastrointestinal: no abdominal pain, no nausea, no vomiting and no diarr hea/loose stools Genitourinary: no urinary hesitancy Neurologic: + headache(s); no confusion Physical Exam Constitutional: not in distress Eyes: PERRL, conjunctivae normal, anicteric sclerae ENMT: Mouth: + dry oral mucous membranes Neck: trachea midline, no thyromegaly Respiratory: normal respiratory effort, lungs clear to auscultation Cardiovascular: RRR, no murmur, no edema Gastrointestinal (Abdomen): normal bowel sounds, soft, nontender, no hepatosplenomegaly Skin: no rashes, warm and dry Neurologic: not confused Speech / Cognition: normal cognition Results & Data ([facility]) Vital Signs (Past 12 Hours) Vital Signs Temp Pulse Resp BP Pulse Ox O2 Del Method 07/01/22 06:16 36.8 C 73 18 112/70 96 Room Air 06/30/22 22:40 36.8 C 73 16 128/75 96 Room Air Laboratory Results Laboratory Tests 06/30/22 07/01/22 07/01/22 07:59 07:21 Unknown Sodium 132 L Potassium 4.1 Chloride 97 L Carbon Dioxide 31 BUN 21 Creatinine 0.70 Glucose 113 H Calcium 10.0 Total Bilirubin 4.2 H AST 118 H ALT 70 H Alkaline Phosphatase 993 H Albumin 3.2 L Urine Osmolality 318 L PG Care Time/CCT Total # of Minutes Spent Total Time Spent with Patient: Total time spent is greater than 50% in coordination of care (as documented) at patient's floor/unit and/or counseling patient: Coding Level of Care Code 46489 Subseq Hosp Care Lvl 3 Diagnoses Hyponatremia E87.1 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
--- NOTE | 2022-07-01 16:15 | Palliative Care Progress Note ---
Date of Service July 01, 2022 Assessment & Plan (1) Back pain: Plan: Improving with palliative radiation. No prn medication in last 48 hours. (2) Palliative care encounter: Plan: Mr. Birmingham and his son were able to speak with Dr. Montero and have their questions answered. At that time, Mr. Birmingham indicated that he did not think that he wanted to pursue further chemotherapy. He tells me that he is not planning to go to [place] for appointment next week. He does want to continue palliative radiation which is helping his symptoms. He feels that he wants to take things on a day to day basis at this time and speak more with his children. His daughter will be returning to the country tomorrow and his son will be arriving in town later this week. They will discuss more at that time. Admission and Anticipated Discharge Date Admission Date: June 25, 2022 Subjective Tired after radiation. Denies pain. Transferred from chair to bed without pain. More tired and confused in the afternoons per RN. Review of Systems Review of Systems: ESAS Pain 0/3 Dyspnea 0/3 NAusea 0/3 Fatigue 2/3 Drowsiness 0/3 PPS 40% Physical Exam Constitutional: no acute distress ENMT: Mouth: oral mucous membranes not dry Respiratory: normal respiratory effort; no labored breathing Cardiovascular: Extremities: + edema Gastrointestinal (Abdomen): Inspection/Auscultation: abdomen normal to inspection Skin: warm and dry Neurologic: moves all extremities mild confusion Results & Data ([facility]) Vital Signs (Past 12 Hours) Vital Signs Temp Pulse Resp BP Pulse Ox O2 Del Method 07/01/22 15:01 97.9 F 76 18 97/62 L 97 Room Air 07/01/22 10:40 97.7 F 79 17 122/78 98 Room Air 07/01/22 06:16 98.2 F 73 18 112/70 96 Room Air PG Care Time/CCT Total # of Minutes Spent Total Time Spent with Patient: Total time spent is greater than 50% in coordination of care (as documented) at patient's floor/unit and/or counseling patient: Coding Level of Care Code 39973 Subseq Hosp Care Lvl 2 Diagnoses Back pain M54.9 Palliative care encounter Z51.5
--- NOTE | 2022-07-01 17:16 | Hospitalist Progress Note ---
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 Found to have hemorrhagic brain metastases on head imaging. Rectal cancer with brain, liver, and spine metastases Primary rectal cancer with known metastases to liver and spine, now brain [facility]s [facility], Dr. Montero -Palliative care consulted as patient declining- getting weaker Recently established with radiation oncology, Dr. Iverson, for palliative radiation to spine which has commenced With new finding of brain mets this admission, radiation therapy to the brain for palliation planned to start after spine in 2nd week Jul Continue oxycodone 5 mg p.o. twice daily scheduled and 5 mg every 6 hours as needed for pain related to spinal mets Continue home prochlorperazine as needed for nausea/vomiting Palliative care consulted- appreciate goals of care discussion with patient and family--> pt and son d/w Dr. Montero -plan for second opinion at [facility]. 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 At this time the patient is euvolemic clinically. -continue free water restriction of 1000 mL/day -continue NaCl tabs and po lasix bid APpreciate Nephro consult TSH 1.55 follow BMP (6) GERD (gastroesophageal reflux disease): Plan: Continue home pantoprazole daily Plan DVT prophylaxis: SCDs at this time due to brain MRI mentioning remote possibility of hemorrhages CODE STATUS: DNR/DNI- patient was part of this decision per admitting team Dispo-awaiting SNF placement Admission and Anticipated Discharge Date Admission Date: June 25, 2022 Subjective No complaints. Had XRT today. Is more confused later in afternoon, asking where his cell phone is but he doesn't have one here as per RN. Denies pain Review of Systems Review of Systems: All systems reviewed & are unremarkable except as noted in HPI & below Physical Exam Constitutional: WD/WN, vitals as above Eyes: + anicteric sclerae Neck: trachea midline, no thyromegaly Respiratory: normal respiratory effort, lungs clear to auscultation Cardiovascular: RRR, no murmur, no edema Chest (Breasts): Chest: normal inspection of chest Gastrointestinal (Abdomen): normal bowel sounds, soft, nontender, no hepatosplenomegaly Musculoskeletal: Extremities: extremities normal to inspection; no cyanosis and no clubbing Skin: no rashes, warm and dry Neurologic: moves all extremities and awake Lymphatic: no lymphedema Results & Data Results & Data ([facility]) Vital Signs (Past 12 Hours) Vital Signs Temp Pulse Resp BP Pulse Ox O2 Del Method 07/01/22 15:01 36.6 C 76 18 97/62 L 97 Room Air 07/01/22 10:40 36.5 C 79 17 122/78 98 Room Air 07/01/22 06:16 36.8 C 73 18 112/70 96 Room Air PG Care Time/CCT Total # of Minutes Spent Total Time Spent with Patient: Total time spent is greater than 50% in coordination of care (as documented) at patient's floor/unit and/or counseling patient: Coding Level of Care Code 84160 Subseq Hosp Care Lvl 1 Diagnoses Brain metastases C79.31 Fall W19.XXXA 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
[2022-07-01] MEDS: MELATONIN 3 MG TAB PO SCH (20:03)
[2022-07-02 07:52] LABS: BUN Creatinine Ratio 34.3 (10-20); Blood Urea Nitrogen 23 mg/dl (6-23); Calcium 9.7 mg/dl (8.5-10.1); Carbon Dioxide 29 mmol/L (21-32); Chloride 96 mmol/L (98-107); Creatinine Clr Calc Pharmacy 96.2 ml/min; Est GFR (African American) 100.1 ml/min; Est GFR (Non-African American) 86.4 ml/min; Glucose 109 mg/dl (70-99(Fasting))
[2022-07-02] MEDS: SODIUM CHLORIDE 1 GM TABLET PO SCH ×3 (08:24→21:03)
[2022-07-02] MEDS: dexAMETHasone 4 MG in SYRINGE 0 ML IV SCH (08:24)
[2022-07-02] MEDS: FUROSEMIDE 20 MG TAB PO SCH ×2 (08:25→16:52)
[2022-07-02] MEDS: ADVANCED PROBIOTIC 1250 MG CAPSULE PO SCH (08:25)
[2022-07-02] MEDS: PANTOprazole 40 MG TAB PO SCH (08:25)
[2022-07-02] MEDS: SENNA 8.6 MG TAB PO SCH (08:25)
[2022-07-02] MEDS: CYANOCOBALAMIN (B-12) 500 MCG TABLET PO SCH (08:26)
[2022-07-02] MEDS: oxyCODONE HCL IR 5 MG TAB (IMMEDIATE RELEASE) PO SCH ×2 (08:28→21:03)
--- NOTE | 2022-07-02 08:55 | Nephrology Progress Note ---
Date of Service July 02, 2022 Assessment & Plan (1) Hyponatremia: Plan: * Hypoosmolar hyponatremia. Patient is clinically euvolemic to volume contracted. Uosm should be < 100 in the setting of hyponatremia. 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 on the basis of DIVISIONAL HUMAN RESOURCES DIRECTOR metastasis w/ vasogenic edema * Serum sodium improved at 131 mmol/L * Continue 1L per day oral free water restriction * Continue NaCl 2g po TID * Continue furosemide 20 mg po BID to lower Uosm and promote free water excretion * Monitor PRP, Uosm * No further Nephrology evaluation indicated at this time. Will sign off. Please call if further assistance is needed. 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 Birmingham was preparing for radiation therapy this am. Mild PUGA. Tolerating NaCl without GI upset Review of Systems Constitutional: no fever Eyes: no problem reported Ear, Nose, Mouth, Throat: no problem reported Respiratory: no cough and no dyspnea Cardiovascular: no chest pain Gastrointestinal: no abdominal pain, no nausea, no vomiting and no diarrhea/loose stools Genitourinary: no urinary hesitancy Neurologic: + headache(s); no confusion Physical Exam Constitutional: not in distress Eyes: PERRL, conjunctivae normal, anicteric sclerae ENMT: Mouth: + dry oral mucous membranes Neck: trachea midline, no thyromegaly Respiratory: normal respiratory effort, lungs clear to auscultation Cardiovascular: RRR, no murmur, no edema Gastrointestinal (Abdomen): normal bowel sounds, soft, nontender, no hepato splenomegaly Skin: no rashes, warm and dry Neurologic: not confused Speech / Cognition: normal cognition Results & Data ([facility]) Vital Signs (Past 12 Hours) Vital Signs Temp Pulse Resp BP BP Pulse Ox O2 Del Method 07/02/22 05:52 36.9 C 74 16 143/85 H 95 Room Air 07/01/22 21:41 36.6 C 80 16 114/69 96 Room Air Laboratory Results Laboratory Tests 07/02/22 07/02/22 05:09 07:09 Chloride 96 L Carbon Dioxide 29 BUN 23 Creatinine 0.67 Est GFR (Non-Af Amer) 86.4 Urine Osmolality 424 L Laboratory Tests 07/02/22 09:29 Sodium 131 L Potassium 4.2 PG Care Time/CCT Total # of Minutes Spent Total Time Spent with Patient: Total time spent is greater than 50% in coordination of care (as documented) at patient's floor/unit and/or counseling patient: Coding Level of Care Code 77930 Subseq Hosp Care Lvl 3 Diagnoses Hyponatremia E87.1 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
[2022-07-02 10:12] LABS: Potassium 4.2 mmol/L (3.5-5.1)
--- NOTE | 2022-07-02 13:05 | Hospitalist Progress Note ---
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 Found to have hemorrhagic brain metastases on head imaging. He is also having cognitive decline, forgetfulness, occasional confusion more in evenings. Rectal cancer with brain, liver, and spine metastases Primary rectal cancer with known metastases to liver and spine, now brain [facility]s [facility], Dr. Montero -Palliative care consulted as patient declining- getting weaker Recently established with radiation oncology, Dr. Iverson, for palliative radiation to spine which has commenced With new finding of brain mets this admission, radiation therapy to the brain for palliation planned to start after spine in week Jul Continue oxycodone 5 mg p.o. twice daily scheduled and 5 mg every 6 hours as needed for pain related to spinal mets Continue home prochlorperazine as needed for nausea/vomiting Palliative care consulted- appreciate goals of care discussion with patient and family--> pt and son d/w Dr. Montero -plan for second opinion at [place]. Also to re- evaluate performance status after all XRT complete in Jul and then see if systemic chemo vs hospice -Continue Decadron but convert IV to p.o. 40 Mg p.o. 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 At this time the patient is euvolemic clinically. -continue free water restriction of 1000 mL/day -continue NaCl tabs and po lasix bid APpreciate Nephro consult-have signed off TSH 1.55 follow BMP occasionally (6) GERD (gastroesophageal reflux disease): Plan: Continue home pantoprazole daily Plan DVT prophylaxis: SCDs at this time due to brain MRI mentioning remote possibility of hemorrhages CODE STATUS: DNR/DNI- patient was part of this decision per admitting team Dispo-medically stable for discharge, awaiting SNF placement which likely will not be till Tuesday Admission and Anticipated Discharge Date Admission Date: June 25, 2022 Subjective C/o pain in his bottom from sitting too long. Denies back pain. Can't remember if he had radiation today. No CP, SOB. Not eatin gmuch. Review of Systems Review of Systems: All systems reviewed & are unremarkable except as noted in HPI & below Physical Exam Constitutional: WD/WN, vitals as above Eyes: + anicteric sclerae Neck: trachea midline, no thyromegaly Respiratory: normal respiratory effort, lungs clear to auscultation Cardiovascular: RRR, no murmur, no edema Chest (Breasts): Chest: normal inspection of chest Gastrointestinal (Abdomen): normal bowel sounds, soft, nontender, no hepatosplenomegaly Musculoskeletal: Extremities: extremities normal to inspection; no cyanosis and no clubbing Skin: no rashes, warm and dry Neurologic: moves all extremities and awake Lymphatic: no lymphedema Results & Data Results & Data ([facility]) Vital Signs (Past 12 Hours) Vital Signs Temp Pulse Resp BP Pulse Ox O2 Del Method 07/02/22 08:17 Room Air 07/02/22 05:52 36.9 C 74 16 143/85 H 95 Room Air Laboratory Results 07/02/22 07/02/22 07/02/22 Range/Units 09:29 07:09 05:09 Sodium 131 L TNP Potassium 4.2 TNP Chloride 96 L (98-107) mmol/L Carbon Dioxide 29 (21-32) mmol/L Anion Gap TNP BUN 23 (6-23) mg/dl Creatinine 0.67 (0.6-1.4) mg/dl Est Cr Clr Drug Dosing 96.2 ml/min Est GFR ( Amer) 100.1 ml/min Est GFR (Non-Af Amer) 86.4 ml/min BUN/Creatinine Ratio 34.3 H (10-20) Glucose 109 H (70-99(Fasting)) mg/dl Calcium 9.7 (8.5-10.1) mg/dl Urine Osmolality 424 L (500-800) mOsm/kg PG Care Time/CCT Total # of Minutes Spent Total Time Spent with Patient: Total time spent is greater than 50% in coordination of care (as documented) at patient's floor/unit and/or counseling patient: Coding Level of Care Code 83006 Subseq Hosp Care Lvl 1 Diagnoses Brain metastases C79.31 Fall W19.XXXA 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
[2022-07-02] MEDS: dexAMETHasone 4 MG TAB PO SCH (21:03)
[2022-07-02] MEDS: MELATONIN 3 MG TAB PO SCH (21:03)
[2022-07-03 07:11] LABS: BUN Creatinine Ratio 29.2 (10-20); Calcium 9.4 mg/dl (8.5-10.1); Creatinine Clr Calc Pharmacy 89.5 ml/min; Est GFR (African American) 97.2 ml/min; Est GFR (Non-African American) 83.9 ml/min; Potassium 4.2 mmol/L (3.5-5.1)
[2022-07-03] MEDS: SODIUM CHLORIDE 1 GM TABLET PO SCH ×3 (08:52→20:36)
[2022-07-03] MEDS: ADVANCED PROBIOTIC 1250 MG CAPSULE PO SCH (08:52)
[2022-07-03] MEDS: FUROSEMIDE 20 MG TAB PO SCH ×2 (08:52→17:53)
[2022-07-03] MEDS: PANTOprazole 40 MG TAB PO SCH (08:52)
[2022-07-03] MEDS: SENNA 8.6 MG TAB PO SCH (08:52)
[2022-07-03] MEDS: dexAMETHasone 4 MG TAB PO SCH ×2 (08:52→20:36)
[2022-07-03] MEDS: CYANOCOBALAMIN (B-12) 500 MCG TABLET PO SCH (08:52)
[2022-07-03] MEDS: oxyCODONE HCL IR 5 MG TAB (IMMEDIATE RELEASE) PO SCH ×2 (08:58→20:36)
--- NOTE | 2022-07-03 11:07 | Hospitalist Progress Note ---
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 Found to have hemorrhagic brain metastases on head imaging. He is also having cognitive decline, forgetfulness, occasional confusion more in evenings. Rectal cancer with brain, liver, and spine metastases Primary rectal cancer with known metastases to liver, adrenal gland, and spine, now brain Follows with [facility], Dr. Montero -Palliative care consulted as patient declining- getting weaker Recently established with radiation oncology, Dr. Iverson, for palliative radiation to spine which has commenced With new finding of brain mets this admission, radiation therapy to the brain for palliation planned to start after spine radiation completed Jul 09 Continue oxycodone 5 mg p.o. twice daily scheduled and 5 mg every 6 hours as needed for pain related to spinal mets-working well Continue home prochlorperazine as needed for nausea/vomiting Palliative care consulted- appreciate goals of care discussion with patient and family--> pt and son d/w Dr. Montero -plan for second opinion at [place]. Also to re- evaluate performance status after all XRT complete in Jul and then see if systemic chemo vs hospice -Continue Decadron 4 Mg p.o. 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: Plan: as above, now moving bowels regularly continue bowel regimen to prevent constipation with senna, MiraLAX as needed, docusate as needed discussion as above--> complete spine and then brain radiation tx, then second opinion planned at [place] for end of Jul, then possible further palliative chemo after that depending on performance status and desire to do so (4) Liver masses: Plan: with elevated LFTs from such, increased in size on latest PET CT scan beginning of Jun TBili 4, DBili 2, AST and ALT,Akl phos elevated some of his intermittent confusion could be from hepatic enephalopathy? 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 At this time the patient is euvolemic clinically. -continue free water restriction of 1000 mL/day -continue NaCl tabs and po lasix bid APpreciate Nephro consult-have signed off TSH 1.55 follow BMP occasionally (6) GERD (gastroesophageal reflux disease): Plan: Continue home pantoprazole daily Plan DVT prophylaxis: SCDs at this time due to brain MRI mentioning remote possibility of hemorrhages CODE STATUS: DNR/DNI- patient was part of this decision per admitting team Dispo-medically stable for discharge, awaiting SNF placement which likely will not be till Tuesday at [facility] where his resides Discussed his care with his son on phone on 07/03 Admission and Anticipated Discharge Date Admission Date: June 25, 2022 Subjective Pt feels well, has no pain. Is in good spirits. Is getting bathed. Seems mentally much clearer in the mornings Review of Systems Review of Systems: All systems reviewed & are unremarkable except as noted in HPI & below Physical Exam Constitutional: WD/WN, vitals as above Eyes: + anicteric sclerae Neck: trachea midline, no thyromegaly Respiratory: normal respiratory effort, lungs clear to auscultation Cardiovascular: RRR, no murmur, no edema Chest (Breasts): Chest: normal inspection of chest Gastrointestinal (Abdomen): normal bowel sounds, soft, nontender, no hepatosplenomegaly Musculoskeletal: Extremities: extremities normal to inspection; no cyanosis and no clubbing Skin: no rashes, warm and dry Neurologic: moves all extremities and awake Lymphatic: no lymphedema Results & Data Results & Data ([facility]) Vital Signs (Past 12 Hours) Vital Signs Temp Pulse Resp BP Pulse Ox O2 Del Method 07/03/22 07:07 36.5 C 74 16 117/74 96 Room Air Laboratory Results 07/03/22 Range/Units 06:34 Sodium 131 L (136-145) mmol/L Potassium 4.2 (3.5-5.1) mmol/L Chloride 97 L (98-107) mmol/L Carbon Dioxide 30 (21-32) mmol/L Anion Gap 4 (3-11) BUN 21 (6-23) mg/dl Creatinine 0.72 (0.6-1.4) mg/dl Est Cr Clr Drug Dosing 89.5 ml/min Est GFR ( Amer) 97.2 ml/min Est GFR (Non-Af Amer) 83.9 ml/min BUN/Creatinine Ratio 29.2 H (10-20) Glucose 117 H (70-99(Fasting)) mg/dl Calcium 9.4 (8.5-10.1) mg/dl PG Care Time/CCT Total # of Minutes Spent Total Time Spent with Patient: Total time spent is greater than 50% in coordination of care (as documented) at patient's floor/unit and/or counseling patient: Coding Level of Care Code 28065 Subseq Hosp Care Lvl 2 Diagnoses Brain metastases C79.31 Fall W19.XXXA 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
[2022-07-03] MEDS: MELATONIN 3 MG TAB PO SCH (20:36)
[2022-07-04 07:59] LABS: Hematocrit (blood only) 33.9 % (40.1-51.0); Mean Corpuscular Hemoglobin 31.3 pg (25.0-34.0); Mean Corpuscular Hgb Conc 35.4 g/dL (32.0-36.0); Mean Corpuscular Volume 88.5 fL (80.0-100.0); Platelet Count 152 K/uL (130-400); RDW Coefficient of Variation 17.4 % (11.5-14.5); RDW Standard Deviation 55.3 fL (36.4-46.3); Red Blood Count 3.83 M/uL (4.63-6.08)
[2022-07-04 08:16] LABS: INR 1.2 (0.9-1.1); Prothrombin Time 12.5 Seconds (9.0-12.0)
[2022-07-04 08:17] LABS: Basophils # (auto) 0.01 K/uL (0-0.2); Basophils % (auto) 0.2 %; Eosinophils # (auto) 0.01 K/uL (0-0.50); Eosinophils % (auto) 0.2 %; Immature Granulocytes # (auto) 0.02 K/uL (0.00-0.02); Immature Granulocytes % (auto) 0.3 %; Lymphocytes # (auto) 0.63 K/uL (1.2-3.4); Lymphocytes % (auto) 10.7 %; Monocytes # (auto) 0.65 K/uL (0.24-0.82); Neutrophils # (auto) 4.58 K/uL (1.4-6.5); Neutrophils % (auto) 77.6 %
[2022-07-04 08:18] LABS: Albumin Level 3.1 gm/dl (3.4-5.0); BUN Creatinine Ratio 31.2 (10-20); Bilirubin Direct 2.9 mg/dl (0-0.2); Bilirubin,Total 5.2 mg/dl (0.2-1.0); Calcium 9.4 mg/dl (8.5-10.1); Creatinine Clr Calc Pharmacy 83.7 ml/min; Est GFR (African American) 94.6 ml/min; Est GFR (Non-African American) 81.6 ml/min; Magnesium 2.1 mg/dl (1.7-2.4); Potassium 4.3 mmol/L (3.5-5.1); Total Protein 5.8 gm/dl (6.0-8.3)
--- NOTE | 2022-07-04 08:46 | Hospitalist Progress Note ---
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 Found to have hemorrhagic brain metastases on head imaging. He is also having cognitive decline, forgetfulness, occasional confusion more in evenings. Rectal cancer with brain, liver, and spine metastases Primary rectal cancer with known metastases to liver, adrenal gland, and spine, now brain Follows with [facility], Dr. Montero -Palliative care consulted as patient declining- getting weaker Recently established with radiation oncology, Dr. Iverson, for palliative radiation to spine which has commenced With new finding of brain mets this admission, radiation therapy to the brain for palliation planned to start after spine radiation completed Jul 09 Continue oxycodone 5 mg p.o. twice daily scheduled and 5 mg every 6 hours as needed for pain related to spinal mets-working well Continue home prochlorperazine as needed for nausea/vomiting Palliative care consulted- appreciate goals of care discussion with patient and family--> pt and son d/w Dr. Montero -plan for second opinion at [place]. Also to re- evaluate performance status after all XRT complete in Jul and then see if systemic chemo vs hospice -Continue Decadron 4 Mg p.o. twice daily for vasogenic edema and bony pain Antiemetics this morning for reported nausea, added pepcid as well. 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 At this time the patient is euvolemic clinically. -continue free water restriction of 1000 mL/day continue NaCl 2gm BID tabs and po lasix bid APpreciate Nephro consult-have signed off TSH 1.55 07/04 --> Na 129 on AM labs, Chl 95, BUN elevated slightly (?from steroids as well) but does look a little dehydrated on exam. Messaged nephrology, as remains on 1000cc/day restriction Will repeat urine osm in meantime/adjustments pending Follow BMP (6) GERD (gastroesophageal reflux disease): Plan: Continue home pantoprazole daily Added pepcid given reflux/nausea Plan DVT prophylaxis: SCDs at this time due to brain MRI mentioning remote possibil ity of hemorrhages CODE STATUS: DNR/DNI- patient was part of this decision per admitting team Dispo-medically stable for discharge, awaiting SNF placement which likely will not be till Tuesday at [facility] where his resides Discussed his care with his son on phone on 07/03 Admission and Anticipated Discharge Date Admission Date: June 25, 2022 Supervising Physician Co-Signing Physician Notes The patient was seen and examined by me. Case discussed with MIREYA Jaimes. Agree with assessment and plan Subjective Patient evaluated this morning, has some pain to his back, controlled with medications, just got oxycodone for such Took pills this morning but did have a little bit of coughing. Has some nausea but no current need to throw up. Will ask RN to administer compazine and start on some pepcid as well. No fever/chills, chest pain, shortness of breath. Awaiting bed at [facility], possible tomorrow. 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 Questions/concerns addressed at this time. Review of Systems Review of Systems: All systems reviewed & are unremarkable except as noted in HPI & below Physical Exam Physical Exam: General: chronically ill appearing male, sitting up in bed, no acute distrss but having some nausea HEENT: head normocephalic, atraumatic, slightly dry mm, trachea midline Resp: CTA, no w/c, on room air CV: RRR, no murmur, no calf tenderness/increased size compared to the other, pulses palpable, chronic venous stasis changes noted GI: +BS, distended, nontender : no wilson MSk/Neuro: no facial droop/slurred speech, generalized weakness Psych: AOx3, cooperative and pleasant Results & Data Results & Data ([facility]) Vital Signs (Past 12 Hours) Vital Signs Temp Pulse Resp BP Pulse Ox O2 Del Method 07/04/22 07:35 36.4 C L 68 16 116/73 94 Room Air 07/03/22 23:28 36.6 C 79 18 104/65 94 Room Air Laboratory Results 07/04/22 07/04/22 07/04/22 Range/Units 07:44 07:41 07:41 WBC (4.8-10.8) K/ul RBC (4.63-6.08) M/uL Hgb (14.0-18.0) g/dl Hct (40.1-51.0) % MCV (80.0-100.0) fL MCH (25.0-34.0) pg MCHC (32.0-36.0) g/dL RDW Std Deviation (36.4-46.3) fL RDW Coeff of Marisol (11.5-14.5) % Plt Count (130-400) K/uL MPV (9.4-12.4) fL Immature Gran % (Auto) % Neut % (Auto) % Lymph % (Auto) % [place] % (Auto) % Eos % (Auto) % Baso % (Auto) % Neut # (Auto) (1.4-6.5) K/uL Lymph # (Auto) (1.2-3.4) K/uL [place] # (Auto) (0.24-0.82) K/uL Eos # (Auto) (0-0.50) K/uL Baso # (Auto) (0-0.2) K/uL Immature Gran # (Auto) (0.00-0.02) K/uL PT 12.5 H (9.0-12.0) Seconds INR 1.2 H (0.9-1.1) Sodium 129 L (136-145) mmol/L Potassium 4.3 (3.5-5.1) mmol/L Chloride 95 L (98-107) mmol/L Carbon Dioxide 28 (21-32) mmol/L Anion Gap 6 (3-11) BUN 24 H (6-23) mg/dl Creatinine 0.77 (0.6-1.4) mg/dl Est Cr Clr Drug Dosing 83.7 ml/min Est GFR ( Amer) 94.6 ml/min Est GFR (Non-Af Amer) 81.6 ml/min BUN/Creatinine Ratio 31.2 H (10-20) Glucose 100 H (70-99(Fasting)) mg/dl Calcium 9.4 (8.5-10.1) mg/dl Magnesium 2.1 (1.7-2.4) mg/dl Total Bilirubin 5.2 H (0.2-1.0) mg/dl Direct Bilirubin 2.9 H (0-0.2) mg/dl AST 91 H (13-39) U/L ALT 73 H (7-52) U/L Alkaline Phosphatase 992 H (34-104) U/L Ammonia 61.0 (18-72) umol/L Total Protein 5.8 L (6.0-8.3) gm/dl Albumin 3.1 L (3.4-5.0) gm/dl 07/04/22 Range/Units 07:41 WBC 5.90 (4.8-10.8) K/ul RBC 3.83 L (4.63-6.08) M/uL Hgb 12.0 L (14.0-18.0) g/dl Hct 33.9 L (40.1-51.0) % MCV 88.5 (80.0-100.0) fL MCH 31.3 (25.0-34.0) pg MCHC 35.4 (32.0-36.0) g/dL RDW Std Deviation 55.3 H (36.4-46.3) fL RDW Coeff of Marisol 17.4 H (11.5-14.5) % Plt Count 152 (130-400) K/uL MPV 9.0 L (9.4-12.4) fL Immature Gran % (Auto) 0.3 % Neut % (Auto) 77.6 % Lymph % (Auto) 10.7 % [place] % (Auto) 11.0 % Eos % (Auto) 0.2 % Baso % (Auto) 0.2 % Neut # (Auto) 4.58 (1.4-6.5) K/uL Lymph # (Auto) 0.63 L (1.2-3.4) K/uL [place] # (Auto) 0.65 (0.24-0.82) K/uL Eos # (Auto) 0.01 (0-0.50) K/uL Baso # (Auto) 0.01 (0-0.2) K/uL Immature Gran # (Auto) 0.02 (0.00-0.02) K/uL PT (9.0-12.0) Seconds INR (0.9-1.1) Sodium (136-145) mmol/L Potassium (3.5-5.1) mmol/L Chloride (98-107) mmol/L Carbon Dioxide (21-32) mmol/L Anion Gap (3-11) BUN (6-23) mg/dl Creatinine (0.6-1.4) mg/dl Est Cr Clr Drug Dosing ml/min Est GFR ( Amer) ml/min Est GFR (Non-Af Amer) ml/min BUN/Creatinine Ratio (10-20) Glucose (70-99(Fasting)) mg/dl Calcium (8.5-10.1) mg/dl Magnesium (1.7-2.4) mg/dl Total Bilirubin (0.2-1.0) mg/dl Direct Bilirubin (0-0.2) mg/dl AST (13-39) U/L ALT (7-52) U/L Alkaline Phosphatase (34-104) U/L Ammonia (18-72) umol/L Total Protein (6.0-8.3) gm/dl Albumin (3.4-5.0) gm/dl PG Care Time/CCT Total # of Minutes Spent Total Time Spent with Patient: Total time spent is greater than 50% in coordination of care (as documented) at patient's floor/unit and/or counseling patient: Coding Level of Care Code 11792 Subseq Hosp Care Lvl 2 Diagnoses Brain metastases C79.31 Fall W19.XXXA 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
[2022-07-04] MEDS: ADVANCED PROBIOTIC 1250 MG CAPSULE PO SCH (09:18)
[2022-07-04] MEDS: FUROSEMIDE 20 MG TAB PO SCH (09:18)
[2022-07-04] MEDS: SENNA 8.6 MG TAB PO SCH (09:18)
[2022-07-04] MEDS: PANTOprazole 40 MG TAB PO SCH (09:18)
[2022-07-04] MEDS: CYANOCOBALAMIN (B-12) 500 MCG TABLET PO SCH (09:18)
[2022-07-04] MEDS: dexAMETHasone 4 MG TAB PO SCH ×2 (09:18→20:02)
[2022-07-04] MEDS: SODIUM CHLORIDE 1 GM TABLET PO SCH ×3 (09:19→20:02)
[2022-07-04] MEDS: oxyCODONE HCL IR 5 MG TAB (IMMEDIATE RELEASE) PO SCH ×2 (09:20→20:01)
[2022-07-04] MEDS ORDERED: FAMOTIDINE 20 MG in SYRINGE 3 ML IV ONE (10:00)
[2022-07-04] MEDS: PROCHLORPERAZINE MALEATE 10 MG TAB PO PRN (10:40)
[2022-07-04] MEDS: LACTULOSE SYRUP 20 GM/30 ML UDC PO SCH (13:44)
[2022-07-04] MEDS: MELATONIN 3 MG TAB PO SCH (20:01)
[2022-07-05 06:57] LABS: BUN Creatinine Ratio 30.7 (10-20); Calcium 9.4 mg/dl (8.5-10.1); Creatinine Clr Calc Pharmacy 85.9 ml/min; Est GFR (African American) 95.6 ml/min; Est GFR (Non-African American) 82.5 ml/min; Magnesium 2.1 mg/dl (1.7-2.4); Potassium 4.3 mmol/L (3.5-5.1)
--- NOTE | 2022-07-05 08:17 | Hospitalist Progress Note ---
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 Found to have hemorrhagic brain metastases on head imaging. He is also having cognitive decline, forgetfulness, occasional confusion more in evenings. Rectal cancer with brain, liver, and spine metastases Primary rectal cancer with known metastases to liver, adrenal gland, and spine, now brain Follows with [facility], Dr. Montero -Palliative care consulted as patient declining- getting weaker Recently established with radiation oncology, Dr. Iverson, for palliative radiation to spine which has commenced With new finding of brain mets this admission, radiation therapy to the brain for palliation planned to start after spine radiation completed Jul 09 Continue oxycodone 5 mg p.o. twice daily scheduled and 5 mg every 6 hours as needed for pain related to spinal mets-working well Continue home prochlorperazine as needed for nausea/vomiting Palliative care consulted - appreciate goals of care discussion with patient and family--> pt and son d/w Dr. Montero -plan for second opinion at [place]. Also to re-evaluate performance status after all XRT complete in Jul and then see if systemic chemo vs hospice -Continue Decadron 4 Mg p.o. twice daily for vasogenic edema and bony pain Antiemetics this morning for reported nausea, added pepcid as well. consider increase PPI BID at d/c 07/05 --> slightly dry on exam 07/04, held evening lasix dose. Less dehydrated on exam, reports taking PO w/o issue Na stable at 129 on repeat, not worse Will touch base w/ nephrology for recs in case patient planning for d/c to SNF today. 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 At this time the patient is euvolemic clinically. 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: Plan: as above, now moving bowels regularly continue bowel regimen to prevent constipation with senna, MiraLAX as needed, docusate as needed discussion as above--> complete spine and then brain radiation tx, then second opinion planned at [place] for end of Jul, then possible further palliative chemo after that depending on performance status and desire to do so (5) Liver masses: Plan: with elevated LFTs from such, increased in size on latest PET CT scan beginning of Jun TBili 4, DBili 2, AST and ALT,Akl phos elevated some of his intermittent confusion could be from hepatic encephalopathy? TB up, others about the same Ammonia 61, dose of lactulose AM 07/04, scheduled daily to prevent hepatic encephalopathy -contemplating further palliative chemo in future after radiation to spine and brain completed keep bowels moving regularly -- continues with smears/incontinence at times per nursing (6) GERD (gastroesophageal reflux disease): Plan: Continue home pantoprazole daily Added pepcid given reflux/nausea, reports controlled Plan DVT prophylaxis: SCDs at this time due to brain MRI mentioning remote possibility of hemorrhages CODE STATUS: DNR/DNI- patient was part of this decision per admitting team Dispo-medically stable for discharge, awaiting SNF placement which likely will not be till Tuesday at [facility] where his resides -- no insurance auth received today holding lasix for now, appreciate nephro assistance Discussed his care with his son on phone on 07/03 Admission and Anticipated Discharge Date Admission Date: June 25, 2022 Supervising Physician Co-Signing Physician Notes Patient was not seen by me. Chart reviewed. Case discussed with MIREYA Jaimes. Agree with assessment and plan Subjective eval this morning, cleaned up by nursing for some smear/incontinence patient currently resting in bed, reports eating/drinking ok, no decreased appetite states pain to spine currently controlled still awaiting bed at [facility], but hopefully will be able to get him over there tomorrow. no fever/chills, chest pain, shortness of breath, nausea or vomiting reported. Wanting to rest. No headache/lightheadedness. Wants to be woken up when Dr Olson stops by. Questions/concerns addressed at this time. Review of Systems Review of Systems: All systems reviewed & are unremarkable except as noted in HPI & below Physical Exam Physical Exam: General: chronically ill appearing male, sleeping upon entry, no acute distress HEENT: head normocephalic, atraumatic, slightly dry mm, trachea midline Resp: CTA, no w/c, on room air CV: RRR, no murmur, no calf tenderness/increased size compared to the other, pulses palpable, chronic venous stasis changes noted GI: +BS, distended, nontender : no wilson MSk/Neuro: no facial droop/slurred speech, +generalized weakness Psych: AOx3, cooperative and pleasant Results & Data Results & Data ([facility]) Vital Signs (Past 12 Hours) Vital Signs Temp Pulse Pulse Resp BP Pulse Ox O2 Del Method 07/05/22 07:43 36.5 C 77 16 130/83 96 Room Air 07/04/22 21:08 36.7 C 78 16 118/75 96 Room Air Laboratory Results 07/05/22 07/05/22 07/05/22 Range/Units Unknown 05:58 05:58 Immature Gran % (Auto) % Neut % (Auto) % Lymph % (Auto) % Garrett % (Auto) % Eos % (Auto) % Baso % (Auto) % Neut # (Auto) (1.4-6.5) K/uL Lymph # (Auto) (1.2-3.4) K/uL Garrett # (Auto) (0.24-0.82) K/uL Eos # (Auto) (0-0.50) K/uL Baso # (Auto) (0-0.2) K/uL Immature Gran # (Auto) (0.00-0.02) K/uL PT (9.0-12.0) Seconds INR (0.9-1.1) Sodium (136-145) mmol/L Potassium (3.5-5.1) mmol/L Chloride (98-107) mmol/L Carbon Dioxide (21-32) mmol/L Anion Gap (3-11) BUN (6-23) mg/dl Creatinine (0.6-1.4) mg/dl Est Cr Clr Drug Dosing ml/min Est GFR ( Amer) ml/min Est GFR (Non-Af Amer) ml/min BUN/Creatinine Ratio (10-20) Glucose (70-99(Fasting)) mg/dl Calcium (8.5-10.1) mg/dl Magnesium (1.7-2.4) mg/dl Total Bilirubin (0.2-1.0) mg/dl Direct Bilirubin (0-0.2) mg/dl AST (13-39) U/L ALT (7-52) U/L Alkaline Phosphatase (34-104) U/L Ammonia (18-72) umol/L Total Protein (6.0-8.3) gm/dl Albumin (3.4-5.0) gm/dl 25-OH Vitamin D Total 70.1 (30-100) ng/ml PTH Intact 10.2 L (12.0-88.0) pg/ml Urine Osmolality 532 (500-800) mOsm/kg 07/05/22 07/04/22 07/04/22 Range/Units 05:58 11:16 07:44 Immature Gran % (Auto) % Neut % (Auto) % Lymph % (Auto) % Garrett % (Auto) % Eos % (Auto) % Baso % (Auto) % Neut # (Auto) (1.4-6.5) K/uL Lymph # (Auto) (1.2-3.4) K/uL Garrett # (Auto) (0.24-0.82) K/uL Eos # (Auto) (0-0.50) K/uL Baso # (Auto) (0-0.2) K/uL Immature Gran # (Auto) (0.00-0.02) K/uL PT (9.0-12.0) Seconds INR (0.9-1.1) Sodium 129 L (136-145) mmol/L Potassium 4.3 (3.5-5.1) mmol/L Chloride 94 L (98-107) mmol/L Carbon Dioxide 27 (21-32) mmol/L Anion Gap 8 (3-11) BUN 23 (6-23) mg/dl Creatinine 0.75 (0.6-1.4) mg/dl Est Cr Clr Drug Dosing 85.9 ml/min Est GFR ( Amer) 95.6 ml/min Est GFR (Non-Af Amer) 82.5 ml/min BUN/Creatinine Ratio 30.7 H (10-20) Glucose 103 H (70-99(Fasting)) mg/dl Calcium 9.4 (8.5-10.1) mg/dl Magnesium 2.1 (1.7-2.4) mg/dl Total Bilirubin (0.2-1.0) mg/dl Direct Bilirubin (0-0.2) mg/dl AST (13-39) U/L ALT (7-52) U/L Alkaline Phosphatase (34-104) U/L Ammonia 61.0 (18-72) umol/L Total Protein (6.0-8.3) gm/dl Albumin (3.4-5.0) gm/dl 25-OH Vitamin D Total (30-100) ng/ml PTH Intact (12.0-88.0) pg/ml Urine Osmolality 560 (500-800) mOsm/kg 07/04/22 07/04/22 07/04/22 Range/Units 07:41 07:41 07:41 Immature Gran % (Auto) 0.3 % Neut % (Auto) 77.6 % Lymph % (Auto) 10.7 % Garrett % (Auto) 11.0 % Eos % (Auto) 0.2 % Baso % (Auto) 0.2 % Neut # (Auto) 4.58 (1.4-6.5) K/uL Lymph # (Auto) 0.63 L (1.2-3.4) K/uL Garrett # (Auto) 0.65 (0.24-0.82) K/uL Eos # (Auto) 0.01 (0-0.50) K/uL Baso # (Auto) 0.01 (0-0.2) K/uL Immature Gran # (Auto) 0.02 (0.00-0.02) K/uL PT 12.5 H (9.0-12.0) Seconds INR 1.2 H (0.9-1.1) Sodium 129 L (136-145) mmol/L Potassium 4.3 (3.5-5.1) mmol/L Chloride 95 L (98-107) mmol/L Carbon Dioxide 28 (21-32) mmol/L Anion Gap 6 (3-11) BUN 24 H (6-23) mg/dl Creatinine 0.77 (0.6-1.4) mg/dl Est Cr Clr Drug Dosing 83.7 ml/min Est GFR ( Amer) 94.6 ml/min Est GFR (Non-Af Amer) 81.6 ml/min BUN/Creatinine Ratio 31.2 H (10-20) Glucose 100 H (70-99(Fasting)) mg/dl Calcium 9.4 (8.5-10.1) mg/dl Magnesium 2.1 (1.7-2.4) mg/dl Total Bilirubin 5.2 H (0.2-1.0) mg/dl Direct Bilirubin 2.9 H (0-0.2) mg/dl AST 91 H (13-39) U/L ALT 73 H (7-52) U/L Alkaline Phosphatase 992 H (34-104) U/L Ammonia (18-72) umol/L Total Protein 5.8 L (6.0-8.3) gm/dl Albumin 3.1 L (3.4-5.0) gm/dl 25-OH Vitamin D Total (30-100) ng/ml PTH Intact (12.0-88.0) pg/ml Urine Osmolality (500-800) mOsm/kg PG Care Time/CCT Total # of Minutes Spent Total Time Spent with Patient: Total time spent is greater than 50% in coordination of care (as documented) at patient's floor/unit and/or counseling patient: Coding Level of Care Code 32650 Subseq Hosp Care Lvl 2 Diagnoses Brain metastases C79.31 Hyponatremia E87.1 Fall W19.XXXA 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
[2022-07-05] MEDS: SODIUM CHLORIDE 1 GM TABLET PO SCH ×3 (08:20→21:22)
[2022-07-05] MEDS: dexAMETHasone 4 MG TAB PO SCH ×2 (08:20→21:22)
[2022-07-05] MEDS: CYANOCOBALAMIN (B-12) 500 MCG TABLET PO SCH (08:21)
[2022-07-05] MEDS: ADVANCED PROBIOTIC 1250 MG CAPSULE PO SCH (08:21)
[2022-07-05] MEDS: PANTOprazole 40 MG TAB PO SCH (08:21)
[2022-07-05] MEDS: LACTULOSE SYRUP 20 GM/30 ML UDC PO SCH (08:22)
[2022-07-05] MEDS: SENNA 8.6 MG TAB PO SCH (08:22)
[2022-07-05] MEDS: oxyCODONE HCL IR 5 MG TAB (IMMEDIATE RELEASE) PO SCH ×2 (08:27→21:24)
[2022-07-05] MEDS ORDERED: FAMOTIDINE 20 MG in SYRINGE 3 ML IV SCH (09:00)
[2022-07-05 09:38] LABS: Albumin Level 3.2 gm/dl (3.4-5.0); Bilirubin Direct 3.5 mg/dl (0-0.2); Bilirubin,Total 6.2 mg/dl (0.2-1.0)
--- NOTE | 2022-07-05 14:06 | Nephrology Progress Note ---
Date of Service July 05, 2022 Assessment & Plan (1) Hyponatremia: Plan: * Hypoosmolar hyponatremia. Findings supportive of SIADH. Patient is clinically euvolemic to volume contracted. * Serum sodium remains slightly low but acceptably stable. 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 No complaints this AM. Anticipated discharge to rehab tomorrow. The patient's condition was discussed with Racheal Escalante PA-C yesterday and today. Nephrology re-evaluation requested in regards to evidence of volume depletion. Diuretics held yesterday afternoon and this AM. Review of Systems Review of Systems: All systems reviewed & are unremarkable except as noted in HPI & below Physical Exam Constitutional: well developed and + thin; not in distress Eyes: + anicteric sclerae; no corneal abnormality ENMT: Mouth: + dry oral mucous membranes Neck: trachea midline, no thyromegaly Respiratory: normal respiratory effort, lungs clear to auscultation Cardiovascular: RRR, no murmur, no edema Gastrointestinal (Abdomen): normal bowel sounds, soft, nontender, no hepatosplenomegaly Skin: no rashes, warm and dry Neurologic: not confused Speech / Cognition: normal cognition Results & Data ([facility]) Vital Signs (Past 12 Hours) Vital Signs Temp Pulse Resp BP Pulse Ox O2 Del Method 07/05/22 07:43 36.5 C 77 16 130/83 96 Room Air Laboratory Results Laboratory Results - last 24 hr 07/05/22 07/05/22 07/05/22 05:58 05:58 05:58 Sodium 129 L Potassium 4.3 Chloride 94 L Carbon Dioxide 27 Anion Gap 8 BUN 23 Creatinine 0.75 Est Cr Clr Drug Dosing 85.9 Est GFR ( Amer) 95.6 Est GFR (Non-Af Amer) 82.5 BUN/Creatinine Ratio 30.7 H Glucose 103 H Calcium 9.4 Magnesium 2.1 Total Bilirubin Direct Bilirubin AST ALT Alkaline Phosphatase Total Protein Albumin 25-OH Vitamin D Total 70.1 PTH Intact 10.2 L Urine Osmolality 07/05/22 07/05/22 05:58 Unknown Sodium Potassium Chloride Carbon Dioxide Anion Gap BUN Creatinine Est Cr Clr Drug Dosing Est GFR ( Amer) Est GFR (Non-Af Amer) BUN/Creatinine Ratio Glucose Calcium Magnesium Total Bilirubin 6.2 H Direct Bilirubin 3.5 H AST 105 H ALT 84 H Alkaline Phosphatase 1123 H Total Protein 6.0 Albumin 3.2 L 25-OH Vitamin D Total PTH Intact Urine Osmolality 532 PG Care Time/CCT Total # of Minutes Spent Total Time Spent with Patient: Total time spent is greater than 50% in coordination of care (as documented) at patient's floor/unit and/or counseling patient: Coding Level of Care Code 36466 Subseq Hosp Care Lvl 3 Diagnoses Hyponatremia E87.1 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
[2022-07-05] MEDS: MELATONIN 3 MG TAB PO SCH (21:23)
[2022-07-06 07:22] LABS: BUN Creatinine Ratio 32.8 (10-20); Calcium 9.2 mg/dl (8.5-10.1); Creatinine Clr Calc Pharmacy 96.2 ml/min; Est GFR (African American) 100.1 ml/min; Est GFR (Non-African American) 86.4 ml/min; Potassium 4.2 mmol/L (3.5-5.1)
--- NOTE | 2022-07-06 08:15 | Hospitalist Progress Note ---
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 Found to have hemorrhagic brain metastases on head imaging. He is also having cognitive decline, forgetfulness, occasional confusion more in evenings. Rectal cancer with brain, liver, and spine metastases Primary rectal cancer with known metastases to liver, adrenal gland, and spine, now brain Follows with cancer care partnership, Dr. Montero -Palliative care consulted as patient declining- getting weaker Recently established with radiation oncology, Dr. Iverson, for palliative radiation to spine which has commenced With new finding of brain mets this admission, radiation therapy to the brain for palliation planned to start after spine radiation completed Jul 09 Continue oxycodone 5 mg p.o. twice daily scheduled and 5 mg every 6 hours as needed for pain related to spinal mets-working well Continue home prochlorperazine as needed for nausea/vomiting Palliative care consulted - appreciate goals of care discussion with patient and family--> pt and son d/w Dr. Montero -plan for second opinion at [place]. Also to re-evaluate performance status after all XRT complete in Jul and then see if systemic chemo vs hospice -Continue Decadron 4 Mg p.o. twice daily for vasogenic edema and bony pain Antiemetics this morning for reported nausea, added pepcid as well. consider increase PPI BID at d/c 07/05 --> slightly dry on exam 07/04, held evening lasix dose. Less dehydrated on exam, reports taking PO w/o issue Na stable at 129 on repeat, not worse Will touch base w/ nephrology for recs in case patient planning for d/c to SNF today. Remains on PO NaCl tablets -- they are to see patient today, appreciate recs Also, low PTH likely from neuroendocrine process, however did check Vit D as on supp 1000 daily/borderline Ca lupe w/ low albumin, would stop this at d/c as Vit D level 70.1 1 --> Na 130 w/ holding lasix. 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 At this time the patient is euvolemic clinically. -continue free water restriction of 1000 mL/day continue NaCl 2gm BID tabs and po lasix bid APpreciate Nephro consult-have signed off TSH 1.55 07/05 --> Na 129, Chlo 94 on labs 07/04, dehydrated on exam -- held further lasix PO, continue to hold for now Repeat Na 129 on AM labs remains on [id number] TID for now Repeat urine osm higher Continue 1000cc/day FREE WATER restriction Nephro to eval today BMp Felicita 07/06 na 130, chl 96, continue oral salt tablets and hold further lasix to prevent worsening dehydration (3) Fall: Plan: 2/2 brain mets PT/OT recommending rehab, need insurance auth for [facility], possibly tomorrow (4) 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 TB up, others about the same Ammonia 61, dose of lactulose AM 07/04, scheduled daily to prevent hepatic encephalopathy -contemplating further palliative chemo in future after radiation to spine and brain completed keep bowels moving regularly -- continues with smears/incontinence at times per nursing (6) GERD (gastroesophageal reflux disease): Plan: Continue home pantoprazole daily Added pepcid given reflux/nausea, reports controlled Plan DVT prophylaxis: SCDs at this time due to brain MRI mentioning remote possibility of hemorrhages CODE STATUS: DNR/DNI- patient was part of this decision per admitting team Dispo-medically stable for discharge, awaiting SNF placement which likely will not be till Tuesday at [facility] where his resides -- no insurance auth received today holding lasix for now, appreciate nephro assistance Discussed his care with his son on phone on 07/03 Admission and Anticipated Discharge Date Admission Date: June 25, 2022 Results & Data Results & Data ([facility]) Vital Signs (Past 12 Hours) Vital Signs Temp Pulse Resp BP Pulse Ox O2 Del Method 07/06/22 07:55 36.5 C 80 18 126/81 95 Room Air 07/05/22 21:28 36.6 C 63 16 142/79 H 97 Room Air PG Care Time/CCT Total # of Minutes Spent Total Time Spent with Patient: Total time spent is greater than 50% in coordination of care (as documented) at patient's floor/unit and/or counseling patient: Coding Diagnoses Brain metastases C79.31 Hyponatremia E87.1 Fall W19.XXXA 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
[2022-07-06] MEDS ORDERED: FAMOTIDINE 20 MG TAB PO SCH (09:00)
--- NOTE | 2022-07-06 10:18 | Discharge Summary ---
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 Patient states she was in his bathroom on the toilet and then stood up, as he was turning towards the sink he felt a bit lightheaded and fell over hitting his head on the countertop. He reports he was unable to get up but was able to reach his phone and call someone to come help him. He was brought in for further evaluation due to his fall and injuries related to it. He denies loss of consciousness, chest pain, palpitations, shortness of breath, fever, chills, nausea, vomiting, numbness, weakness, tingling. In the ED, patient had head CT showing "new, mild left frontal hyperdensity is nonspecific, small hemorrhage not excluded, however, there is a second lesion in the left medial occipital lobe that is masslike with peripheral hyperdensity, could reflect neoplasm. No edema, mass-effect, hydrocephalus, herniation or midline shift. Consider MRI brain with and without contrast for further evaluation." Follow-up brain MRI showed "compared with head CT done earlier in head CT 10/31/2021. There are 3 hyperintense nodules in the left hemisphere, in addition to small, bilateral enhancing nodules in the right external capsule and left temporal lobe, nonspecific. Given multiplicity of lesions metastatic disease is most likely. However, cannot entirely exclude focus of hemorrhage left frontal/left periventricular and left medial occipital lobes where there are subacute products of hemorrhage." Cervical spine CT was negative for fractures or bony abnormality. Blood work showing normal white count, stable anemia with hemoglobin of 12.2, normal platelet count. Did have hyponatremia with sodium of 129, elevations of T bili to 4.4, AST to 85, ALT to 55, alk phos 885. Troponin normal. Admission Exam Per Admitting Provider GENERAL: A&Ox3. NAD. HEENT: PERRL, EOMI. Moist mucous membranes. Right posterior ear with laceration that has been sutured. NECK: No JVD. No lymphadenopathy. CHEST/LUNGS: CTAB A/P. No crackles, wheezes, rales, rhonchi. HEART: RRR. No m/g/r. No carotid bruits. ABDOMEN: NT/ND, soft. BS+ x4 EXTREMITIES: No cyanosis, no clubbing, no edema SKIN: Warm and dry. No rashes or lesions. PSYCHIATRIC: Euthymic affect, no SI, no pressured speech, no hallucinations NEUROLOGIC: No FND. CN II-XII grossly intact. Principal Diagnosis Fall, Brain Metastasis Discharge Exam General: chronically ill appearing male, improved energy/appetite today, sitting up in bed, no acute distress HEENT: head normocephalic, atraumatic, slightly dry mm but much improved, trachea midline Resp: CTA, no w/c, on room air, baseline LE edema CV: RRR, no murmur, no calf tenderness/increased size compared to the other, pulses palpable, chronic venous stasis changes noted (low albumin) GI: +BS, distended, nontender : no wilson MSk/Neuro: no facial droop/slurred speech, +generalized weakness Psych: AOx3, cooperative and pleasant Discharge Data Allergies Allergy/AdvReac Type Severity Reaction Status Date / Time No Known Allergies Allergy Verified 06/21/22 09:49 Consultations 06/25/22 02:27 Consult Radiation Oncology Stat 06/28/22 08:21 Consult Nephrology Routine 06/28/22 10:09 Consult Palliative Care Routine 06/30/22 14:39 Consult Oncology Routine Ordered Studies Cervical Spine CT 06/24/22 22:[address] DOSE: HISTORY: Fall. Headache. TECHNIQUE: Multiaxial CT images of the cervical spine were performed and reformatted in the sagittal and coronal plane without the use of contrast. A dose lowering technique was utilized adhering to the principles of ALARA. COMPARISON: None. FINDINGS: No fractures. No subluxation. Prevertebral soft tissues and the C1-C2 interval are intact. No pneumothorax. Mild degenerative changes throughout the cervical spine. The left C2-C3 facets are fused. IMPRESSION: No fractures within the cervical spine. ACT 112: Negative or not required by law. Electronically signed by: Gino Burger M.D. 06/25/2022 7:[address] 06/24/22 22:55 CT OF THE HEAD WITHOUT CONTRAST CLINICAL HISTORY: fall, hit head COMPARISON STUDY: MRI of the brain November 26, [address] October 31, 2021. CT DOSE: 1204.45 mGy.cm TECHNIQUE: Helical axial images of the head were obtained without IV contrast. Automated exposure control was utilized for the study. A dose lowering technique was utilized adhering to the principles of ALARA. FINDINGS: A few intra-axial supratentorial hyperdense foci have developed since prior head CT and MRI. These include a 1.3 cm left frontal lobe lesion on axial image 24 of 36 and a 1.1 cm left parietal lobe lesion on image 23. Mild vasogenic edema is noted adjacent to the left frontal lobe lesion. There is also a 9 mm hypodense lesion within the body of the left caudate. Ventricular system is stable. Basal cisterns are patent. There are no extra axial fluid collections. White matter hypodensity suggests small vessel disease. There is no acute calvarial fracture. IMPRESSION: 1. Interval development of several hyperdense intra-axial lesions since prior head CT and MRI. These favor hemorrhagic metastases given history of malignancy. Mild vasogenic edema. No significant mass effect. 2. No acute traumatic findings. ACT 112: Negative or not required by law. Electronically signed by: Nima Ernst M.D. 06/25/2022 8:40 AM Brain MRI 06/25/22 00:05 MRI OF THE BRAIN WITHOUT AND WITH IV CONTRAST CLINICAL HISTORY: Rectal carcinoma. Fall. Abnormal CT. COMPARISON STUDY: Head CT June 24, 2022 and MRI of the brain November 26, 2021. TECHNIQUE: Utilizing a 1.5 Kaye magnet and dedicated coil, multiplanar, multiecho imaging of the brain was performed pre and postcontrast administration. IV administration of 10 mL of Gadavist contrast was uneventful. Thin cut T1 post contrast imaging was performed. FINDINGS: There are no foci of restricted diffusion to suggest acute infarct. There is increased signal intensity within the brain on diffusion-weighted sequence are due to hemorrhagic lesions. Note is made of multiple supratentorial T1 hyperintense lesions. The largest is a 1.5 cm left frontal lobe lesion. There is mild associated vasogenic edema. These suggest hemorrhagic metastases. Several additional nonhemorrhagic enhancing lesions are also noted consistent with metastases. These lesions are new since MRI of November 26, 2021. There is no mass effect. Ventricular system is stable. Basal cisterns are patent. There are no extra-axial collections. A 1.3 cm enhancing focus within the left frontal bone is unchanged since previous MRI. White matter T2 hyperintense foci favor small vessel disease. IMPRESSION: Multiple supratentorial lesions which are new since MRI of November 26, 2021. These are consistent with metastases, the majority of which are hemorrhagic. Mild associated vasogenic edema. No significant mass effect. ACT 112: Negative or not required by law. Electronically signed by: Nima Ernst M.D. 06/25/2022 8:35 AM Chest X-Ray 06/26/22 11:27 XR chest 2V PA/lateral CLINICAL HISTORY: Metastatic rectal CA TECHNIQUE: 2 views of the chest were obtained. Comparison: Comparison is made to chest radiograph 10/31/[address] chest 06/04/2022 FINDINGS: No lines and tubes are seen. The aorta is tortuous. The remainder of the cardiomediastinal silhouette is unremarkable. Nodular densities projecting over the right upper lung are unchanged from prior exam. No evidence of pleural effusion or pneumothorax. IMPRESSION: No acute abnormalities. Nodular densities projecting over the right upper lung are unchanged from prior exam but do not appear to correlate to nodules on prior radiation therapy CT chest. ACT 112: Negative or not required by law. Electronically signed by: Ajith Castro M.D. 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 Found to have hemorrhagic brain metastases on head imaging. He is also having cognitive decline, forgetfulness, occasional confusion more in evenings. Rectal cancer with brain, liver, and spine metastases Primary rectal cancer with known metastases to liver, adrenal gland, and spine, now brain [facility], Dr. Montero -Palliative care consulted as patient declining- getting weaker Recently established with radiation oncology, Dr. Iverson, for palliative radiation to spine which has commenced With new finding of brain mets this admission, radiation therapy to the brain for palliation planned to start after spine radiation completed Jul 09 Continued oxycodone 5 mg p.o. twice daily scheduled and 5 mg every 6 hours as needed for pain related to spinal mets-working well. Continued home antiemetics prn Palliative care consulted - appreciate goals of care discussion with patient and family --> pt and son d/w Dr. Montero -plan for second opinion at [place]. Also to re- evaluate performance status after all XRT complete in Jul and then see if systemic chemo vs hospice -Continue Decadron 4 Mg p.o. twice daily for vasogenic edema and bony pain On 07/05, appeared slightly more dehydrated, Na stayed at 129. Discussed with Dr Olson, held further lasix. 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 At this time the patient is euvolemic clinically. 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 TB up, others about the same Ammonia 61 -- stopped other bowel medications and placed on daily lactulose Improvement on exam, continued at d/c to prevent hepatic encephalopathy contemplating further palliative chemo in future after radiation to spine and brain completed (6) GERD (gastroesophageal reflux disease): Continued home pantoprazole daily Added pepcid given reflux/nausea prior -- reports improved/controlled and continued at d/c Plan DVT prophylaxis: SCDs at this time due to brain MRI mentioning remote possibilit y of hemorrhages CODE STATUS: DNR/DNI- patient was part of this decision per admitting team Discharged to [facility], continued XRT to spine w/ radiation to brain following, decadron for brain mets NaCl 2gm TID, no lasix as outlined Repeat labs in 2 days F/u oncology/radiation Total Time Total Time Spent Total Time Spent (In Minutes): 50 Discharge Plan Discharge Items Patient Disposition: Transfer Residential Fac Reason For Visit: FALL Discharge Diagnosis: Fall, Brain Metastasis Condition on Discharge: Fair Goals: You have been hospitalized for an acute medical problem. During your stay at [facility], we have made an effort to correct the problem that brought you to the hospital while keeping you as comfortable as possible. Medications were used to bring your condition under control and your discharge instructions will include directions for any medications you should take after leaving the hospital. Please make sure you see your Primary Care Provider as pa rt of your follow up plan. Activity: As commented below Activity Comment: continue working with therapy as tolerated Non-emergency contact: Primary Care Provider, Personal Computer Network Engineer and Oncologist Call non-emergency contact if: you have any medication questions, your symptoms worsen and your pain is not controlled Follow-up/Referrals: Gilbert Araujo MD [Physician] - Luiz Kraft MD [Primary Care Provider] - Tg Montero MD [Physician] - Diet: Regular Fluids: 1000ml (4 cups) Ambulatory Orders: Basic Metabolic Panel (Routine) Timeframe: 2 Days Location: Determined by Patient Ordered By: Racheal Riddle Attending Provider Instructions: You have been hospitalized for a fall. You were found to have evidence for brain metastasis. Oncology and radiation oncology were consulted and you started radiation. You are going to continue daily radiation until 07/09 for the spine, and will continue palliation radiation to the brain the second week of July. You will continue decadron 4mg by mouth twice daily for edema (swelling) in the brain as well as bony metastasis. You will continue pain control. You can continue oxycodone 5mg twice daily scheduled and 5mg as needed every 6 hours for breakthrough pain. Should also be mindful to continue bowel regimen to ensure these are moving. We have used Senokot, Miralax as needed as well as docusate as needed. You can use lactulose daily to prevent accumulation of ammonia which can cause worsening confusion when not moving your bowels, likely from mets to the liver. Your sodium level has been low, and this is likely from "SIADH" which is from inappropriate antidiuretic hormone in the body and nephrology was consulted and you should continue a fluid restriction of 1000mL (this is only for free water, no other fluids) You will continue oral salt tablets 2grams by mouth three times daily. We had placed you on Lasix as well, however you appeared to be slightly dehydrated on exam, and given poor oral intake these were held and not sent at discharge, at least for now. You should have repeat labs in the next 1-2 days to ensure these levels are stable. Therapy has evaluated you and are recommending rehab, which has been arranged for [facility]. You should follow up with PCP in the next 7-10 days to monitor your progress. You should continue follow up with Dr Montero as well as Dr Iverson as arranged. Please return to the ER with any worsening symptoms or for any symptoms that are concerning for you. Pending Studies at Discharge: No Stand-Alone Forms: My [facility] [address] Skilled Items Patient informed of condition?: Yes DNR: Yes Discharge Level of Care: Skilled Communicable Disease: No Discharge Prognosis: Stable Lines: None Urinary Catheter: No Medications and DC Order Prescriptions: New dexamethasone 4 mg Tablet 4 mg PO BID Qty: 60 0RF sodium chloride 1,000 mg tablet,soluble 2,000 mg PO TID 14 Days Qty: 84 0RF lactulose 20 gram/30 mL Solution 20 g PO DAILY Qty: 1200 0RF famotidine 20 mg Tablet 20 mg PO DAILY Qty: 30 0RF Continued oxycodone 5 mg capsule 5 mg PO .COMPLEX PRN (Reason: Pain) Rx Instructions: 5 mg orally q4-6 hours PRN; mecobalamin (vitamin B12) 1,000 mcg tablet,chewable 1,000 mcg PO DAILY Qty: 30 0RF prochlorperazine maleate 10 mg tablet 10 mg PO Q6H PRN (Reason: nausea and vomiting) Qty: 30 0RF pantoprazole 40 mg tablet,delayed release (DR/EC) 40 mg PO QAM Qty: 90 0RF melatonin 10 mg capsule 10 mg PO HS Qty: 30 0RF multivitamin Tablet 1 tab PO DAILY Qty: 30 0RF Adult 50 Plus Probiotic 4 billion cell capsule 4,000 mmu cells PO DAILY Rx Instructions: administer with a meal docusate sodium [Stool Softener] 100 mg capsule 100 mg PO Q OTHER DAY PRN (Reason: Constipation) acetaminophen 500 mg capsule 1,000 mg PO Q6H PRN (Reason: fever. pain) Rx Instructions: two tablets orally bid and also every 6 hours PRN; not to exceed 3gm daily oxycodone 5 mg tablet 5 mg PO BID Qty: 30 0RF Rx Instructions: + prn q 6 hours . Discontinued cholecalciferol (vitamin D3) [Vitamin D3] 25 mcg (1,000 unit) tablet 25 mcg PO QAM Discharge Orders: Discharge Order (Routine); Ordered 07/06/22 Ordered By: Racheal Escalante Admission Data Admit Date/Time: 06/25/22 02:27 Attending Provider: Bubba Chen Admit Provider: Gonzalez Sevilla Primary Care Provider: Luiz Kraft Other Providers: Damien Iverson ; Bubba Chen ; Gilbert Araujo ; Matt Scott ; Linnette Acosta Kevin C. ; Kathy Calles ; Farnaz Anthony ; Tg Montero ; Leonarda Barrera [facility] Other Interventions: Discharge Summary Assessment (RN) Last Done: 07/06/22 12:14 Supervising Physician Co-Signing Physician Notes The patient was seen by me. Case discussed with MIREYA Jaimes. Agree with assessment and plan. 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
[2022-07-06] MEDS: dexAMETHasone 4 MG TAB PO SCH (10:47)
[2022-07-06] MEDS: LACTULOSE SYRUP 20 GM/30 ML UDC PO SCH (10:47)
[2022-07-06] MEDS: ADVANCED PROBIOTIC 1250 MG CAPSULE PO SCH (10:48)
[2022-07-06] MEDS: SODIUM CHLORIDE 1 GM TABLET PO SCH (10:48)
[2022-07-06] MEDS: PANTOprazole 40 MG TAB PO SCH (10:48)
[2022-07-06] MEDS: SENNA 8.6 MG TAB PO SCH (10:49)
[2022-07-06] MEDS: CYANOCOBALAMIN (B-12) 500 MCG TABLET PO SCH (10:49)
[2022-07-06] MEDS: oxyCODONE HCL IR 5 MG TAB (IMMEDIATE RELEASE) PO SCH (10:52)
--- NOTE | 2022-07-06 12:25 | Nephrology Progress Note ---
Date of Service July 06, 2022 Assessment & Plan (1) Hyponatremia: Plan: * Hypoosmolar hyponatremia. Findings supportive of SIADH. * Volume status acceptable. * Serum sodium stable. 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 No complaints this AM. Anticipated discharge to rehab. The patient's plan of care was discussed with Racheal Escalante PA-C today. Review of Systems Review of Systems: All systems reviewed & are unremarkable except as noted in HPI & below Physical Exam Constitutional: well developed and + thin; not in distress Eyes: + anicteric sclerae; no corneal abnormality ENMT: Mouth: oral mucous membranes not dry Neck: trachea midline, no thyromegaly Respiratory: normal respiratory effort, lungs clear to auscultation Cardiovascular: RRR, no murmur, no edema Gastrointestinal (Abdomen): normal bowel sounds, soft, nontender, no hepatosplenomegaly Skin: no rashes, warm and dry Neurologic: not confused Speech / Cognition: normal cognition Results & Data ([facility]) Vital Signs (Past 12 Hours) Vital Signs Temp Pulse Pulse Resp BP BP Pulse Ox 07/06/22 12:14 36.4 C L 77 80 14 125/73 114/69 95 07/06/22 10:03 36.4 C L 77 14 125/73 95 07/06/22 07:55 36.5 C 80 18 126/81 95 O2 Del Method 07/06/22 12:14 07/06/22 10:03 Room Air 07/06/22 07:55 Room Air Laboratory Results Laboratory Results - last 24 hr 07/06/22 07/06/22 06:48 11:09 Sodium 130 L Potassium 4.2 Chloride 96 L Carbon Dioxide 27 Anion Gap 7 BUN 22 Creatinine 0.67 Est Cr Clr Drug Dosing 96.2 Est GFR ( Amer) 100.1 Est GFR (Non-Af Amer) 86.4 BUN/Creatinine Ratio 32.8 H Glucose 102 H Calcium 9.2 SARS-CoV-2, RNA, NAAT NEGATIVE PG Care Time/CCT Total # of Minutes Spent Total Time Spent with Patient: Total time spent is greater than 50% in coordination of care (as documented) at patient's floor/unit and/or counseling patient: Coding Level of Care Code 69477 Subseq Hosp Care Lvl 2 Diagnoses Hyponatremia E87.1 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
== END 2022-07-06 12:58 | DRG 55 ==
LOC: ED 22:41 → SUATTDRO 06-25 02:27 → EDINP 06-25 02:27 → 3E 06-26 00:40